=== PATIENT | female | born 1930 | race Caucasian/White ===

== ENCOUNTER 2018-01-31 01:58 | Inpatient (IN) | payer MEDICARE, OTHER ==
[2018-01-31] MEDS ORDERED: Diltiazem HCl 125 MG, Admixture Fee 1 EACH in Sodium Chloride 0.9% 100 ML IVPB SCH (02:30)
[2018-01-31 03:11] LABS: #Eosinphils 0.3 thou/uL (0.0-0.7); #Lymphocytes 1.3 thou/uL (1.20-3.40); #Neutrophils 6.5 thou/uL (1.40-6.50); %Basophils 0.3 % (0.0-1.0); %Eosinophils 3.1 % (0.0-10.0); %Monocytes 10.7 % (0.0-10.0); %Neutrophils 71.8 % (42.0-75.0); Mean Corpuscular HGB CONC 32.2 g/dL (32.0-36.0); Mean Corpuscular Hemoglobin 28.2 pg (27.0-31.0); Mean Corpuscular Volume 87.6 fL (78.0-98.0); Platelet Count 176 thou/uL (130-400); RBC Distribution Width 14.7 % (11.5-14.5); Red Blood Cell (RBC) Count 4.62 mill/uL (4.20-5.40)
[2018-01-31 03:16] LABS: Bilirubin Negative (Negative); Blood, Urine Trace (Negative); Clarity CLEAR (Clear); Glucose, Urine (Dipstick) Negative (Negative); Leukocyte Negative (Negative); Nitrite Negative (Negative); Protein, Urine (Dipstick) 30 mg/dL (Neg-Trace); Specific Gravity, Urine 1.027 (1.002-1.036); Urobilinogen 0.2 mg/dL (0.2-1.0)
[2018-01-31 03:18] LABS: Bacteria/HPF None Seen HPF (None Seen); Hyaline Casts/LPF 4-6 HYALINE CAST LPF (0-3 Hyaline); Pathc Cast-AUWi Flag 1.01 (0-2.49); WBC/HPF 0-3 HPF (0-3)
[2018-01-31 03:21] LABS: Oval Fat Bodies/HPF None Seen HPF (None Seen); Renal Epithelial 0-3 HPF (0-3); Sperm/HPF None Seen HPF (None Seen); Trichomonas/HPF None Seen HPF (None Seen); Yeast-All Forms None Seen HPF (None Seen)
[2018-01-31 03:31] LABS: ALT (SGPT) 13 U/L (8-55); AST (SGOT) 17 U/L (5-34); Albumin 3.8 g/dL (3.4-4.8); Alkaline Phosphatase 50 U/L (40-150); Anion Gap 15 mmol/L (10-20); BUN (Urea Nitrogen) 21 mg/dL (9.8-20.1); Bilirubin, Total 0.8 mg/dL (0.2-1.2); Calc. Creatinine Clearance 0 mL/min (70-130); Calcium 8.9 mg/dL (7.8-10.44); Carbon Dioxide 24 mmol/L (23-31); Chloride 102 mmol/L (98-107); Estimated GFR-MDRD 54; Globulin 3.1 g/dL (2.4-3.5); Glucose 138 mg/dL (83-110); Lipase 37 U/L (8-78); Magnesium 1.9 mg/dL (1.6-2.6); Phosphorus 2.6 mg/dL (2.3-4.7); Potassium 3.8 mmol/L (3.5-5.1); Protein, Total 6.9 g/dL (6.0-8.3); Sodium 137 mmol/L (136-145)
[2018-01-31 03:34] LABS: CKMB 3.2 ng/mL (0-6.6); Troponin I 0.026 ng/mL (< 0.028)
[2018-01-31 06:25] LABS: Troponin I 0.164 ng/mL (< 0.028)
--- NOTE | 2018-01-31 09:57 | RAD ---
PORTABLE CHEST: HISTORY: Shortness of breath and chest pain. FINDINGS: Lungs show no confluent infiltrate. The heart is mildly enlarged. Interstitial markings are mildly prominent. Vascular markings upper normal. No significant effusion. IMPRESSION: Mild cardiomegaly. No evidence of acute infiltrate. POS: [facility]
[2018-01-31 10:30] LABS: Troponin I 0.312 ng/mL (< 0.028)
[2018-01-31 15:01] VITALS: BMI 31.1
[2018-01-31] MEDS ORDERED: Ondansetron HCl/PF 4 MG/2 ML Vial IVP PRN (15:34)
[2018-01-31] MEDS ORDERED: Acetaminophen 325 MG TAB PO PRN (15:34)
[2018-01-31] MEDS ORDERED: Ondansetron ODT 4 MG TAB PO PRN (15:34)
[2018-01-31] MEDS ORDERED: HYDROcodone/Acetaminophen 5/325 mg Tablet PO PRN ×2 (15:34)
[2018-01-31] MEDS ORDERED: Acetaminophen 650 MG Suppository PR PRN ×2 (15:34→18:09)
[2018-01-31] MEDS ORDERED: Famotidine 20 MG TAB PO SCH (16:00)
[2018-01-31 19:50] LABS: CKMB 4.2 ng/mL (0-6.6); Troponin I 0.221 ng/mL (< 0.028)
[2018-01-31] MEDS: Atorvastatin Calcium 40 MG TAB PO SCH (20:36)
[2018-02-01 00:19] LABS: CKMB 3.5 ng/mL (0-6.6); Troponin I 0.215 ng/mL (< 0.028)
[2018-02-01] MEDS: Aspirin 81 mg Enteric Coated Tablet PO SCH (09:02)
[2018-02-01] MEDS: Multivitamin W/ Minerals 1 TAB PO SCH (09:03)
[2018-02-01] MEDS: Famotidine 20 MG TAB PO SCH ×2 (09:03→20:37)
[2018-02-01] MEDS: Calcium Carbonate + Vit D 1 TAB PO SCH (09:03)
[2018-02-01] MEDS: Polyethylene Glycol OPTH DROP 15 ML BOT EA EYE SCH (09:10)
--- NOTE | 2018-02-01 12:27 | PDOC.PN ---
- Subjective Encounter Start Date: 02/01/18 Encounter Start Time: 12:20 Subjective: f/u for A-fib RVR converting to SR rapidly. Remains in SR on po Cardizem -: and Metoprolol. No new complaints, CP, SOB. - Objective Resuscitation Status: Resuscitation Status FULL:Full Resuscitation Vital Signs & Weight: Vital Signs (12 hours) Temp Pulse Resp BP Pulse Ox 02/01/18 11:37 98.1 F 72 15 158/70 H 97 02/01/18 07:15 98.2 F 71 16 156/88 H 94 L 02/01/18 03:19 98.1 F 62 18 185/73 H 93 L Weight Weight 168 lb I&O: 01/31/18 02/01/18 02/02/18 06:59 06:59 06:59 Intake Total 770 Output Total 985 Balance -215 Result Diagrams: 01/31/18 02:49 01/31/18 02:49 Additional Labs: Laboratory Tests 01/31/18 01/31/18 01/31/18 02:49 02:49 05:49 Troponin I 0.026 0.164 H TSH 3rd Generation 1.5855 01/31/18 01/31/18 09:03 19:02 Troponin I 0.312 H* 0.221 H TSH 3rd Generation EKG Reviewed by me: Yes (Tele - SR) Phys Exam - Physical Examination Constitutional: NAD HEENT: PERRLA, sclera anicteric, oral pharynx no lesions Neck: no nodes, no JVD, supple, full ROM Respiratory: no wheezing, no rales, no rhonchi, clear to auscultation bilateral S1, S2 Cardiovascular: RRR, no significant murmur, no rub, gallop Gastrointestinal: soft, non-tender, no distention, positive bowel sounds Musculoskeletal: no edema, pulses present Neurological: normal sensation, moves all 4 limbs alert, talks rapidly Skin: normal turgor, cap refill <2 seconds Dx/Plan (1) Atrial fibrillation with RVR Code(s): I48.91 - UNSPECIFIED ATRIAL FIBRILLATION Status: Acute Comment: Converted to SR, continue Cardizem 180mg daily, continue Metoprolol 100mg po daily, 2D echo pending, consult Cardiology, CHADS-Vas2 - 4, hold anticoagulation pending recommendations from Cardiology (2) HTN (hypertension) Code(s): I10 - ESSENTIAL (PRIMARY) HYPERTENSION Status: Chronic Qualifiers: Hypertension type: essential hypertension Qualified Code(s): I10 - Essential (primary) hypertension Comment: Continue home BP regimen, added Cardizem, serial monitoring (3) HLD (hyperlipidemia) Code(s): E78.5 - HYPERLIPIDEMIA, UNSPECIFIED Status: Chronic Comment: Check FLP in am (4) Demand ischemia of myocardium Code(s): I24.8 - OTHER FORMS OF ACUTE ISCHEMIC HEART DISEASE Status: Acute Comment: Likely due to A-fib RVR, 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
[2018-02-01] MEDS: Acetaminophen 325 MG TAB PO PRN (13:08)
--- NOTE | 2018-02-01 15:53 | CON ---
DATE OF CONSULTATION: 02/01/2018 REASON FOR CONSULTATION: Atrial fibrillation. HISTORY OF PRESENT ILLNESS: Ms. Craven is a very pleasant 87-year-old woman, who recently presented w ith atrial fibrillation. The history is very difficult. She appears to be very confused. I called and spoke to her son, Jimmy, who states this was felt to be a new finding. He states she was on a la dder in the pantry and fell. He states she hit her head. He said she was seen and evaluated while i n the emergency room and was discharged. She has been on pain medication. This has been intermitten t. He states since that time she has been very confused. She has been very lucid prior to this fall . No previous history of underlying atrial fibrillation. No chest pain or pressure or other associa juventino symptoms present. PAST MEDICAL HISTORY: Hyperlipidemia. PAST SURGICAL HISTORY: Appendectomy. ALLERGIES: None. SOCIAL HISTORY: No current tobacco or alcohol use. HOME MEDICATIONS: Include Systane, multivitamin, calcium, aspirin, Toprol, pantoprazole, tramadol, a nd Lipitor. REVIEW OF SYSTEMS: Difficult to obtain. PHYSICAL EXAMINATION: VITAL SIGNS: Blood pressure 158/70, pulse 72, temperature 98.91. GENERAL: Patient is a pleasant female, who is in no acute distress. The patient appears her stated age. VITAL SIGNS: NEUROLOGIC: The patient is alert and oriented times 3 with no focal neurologic deficits. HEENT: Sclerae without icterus. Mouth has moist mucous membranes with normal pallor. NECK: No JVD. Carotid upstroke brisk. No bruits bilaterally. LUNGS: Clear to auscultation with unlabored respirations. BACK: No scoliosis or kyphosis. CARDIAC: Regular rate and rhythm with normal S1 and S2. No S3 or S4 noted. No significant rubs, mu rmurs, thrills, or gallops noted throughout the precordium. PMI is not displaced. There is no franco ternal heave. ABDOMEN: Soft, nontender, nondistended. No peritoneal signs present. No hepatosplenomegaly. No ab normal striae. EXTREMITIES: 2+ femoral and 2+ dorsalis pedis pulses. No cyanosis, clubbing, or edema. SKIN: No gross abnormalities. LABORATORY AND X-RAY FINDINGS: Initial EKG shows atrial fibrillation with rapid ventricular response , now sinus rhythm. IMPRESSION: 1. Confusion. 2. Paroxysmal atrial fibrillation. RECOMMENDATIONS: I spoke with Jimmy about the risks of anticoagulation therapy. Given the risks and benefits, we have decided to proceed with anticoagulation treatment. She has had 1 fall, but otherw ise has been fairly steady. Her blood pressure was very elevated earlier today and may also represen t hypertensive encephalopathy as far as the etiology to her confusion. This may also represent an at ypical stroke. I have discussed the case with Dr. Carlos Alberto Falk. We will need an MRI and likely Neurol ogy consult.
[2018-02-01] MEDS: Atorvastatin Calcium 40 MG TAB PO SCH (20:37)
[2018-02-02 06:28] LABS: Cardiac Risk 2.8 (Less than 4.5)
--- NOTE | 2018-02-02 09:11 | PDOC.PN ---
- Subjective Encounter Start Date: 02/02/18 Encounter Start Time: 09:07 Ms. Craven was seen today in follow-up of confusion and AFIB. She is complaining of feeling constipated, but otherwise ok. When you first talk with her she seems oriented, but the more she talks, and answers questions she becomes agitated, and the conversation goes off course. She begins to repeat the same ideas over and over ( ie, a medication that Dr. Seth put her on), and begins to forget the details of previous events, for example which day she fell last week. she admits she has short term memory problems. Her daughter- in law is at bedside, and notes that the confusion is worse. - Objective Resuscitation Status: Resuscitation Status FULL:Full Resuscitation MAR Reviewed: Yes Vital Signs & Weight: Vital Signs (12 hours) Temp Pulse Resp BP Pulse Ox 02/02/18 04:00 97.8 F 68 25 H 184/82 H 92 L 02/01/18 23:59 93 19 93 L Weight Weight 167 lb I&O: 02/01/18 02/02/18 02/03/18 06:59 06:59 06:59 Intake Total 770 1140 Output Total 985 500 Balance -215 640 Result Diagrams: 01/31/18 02:49 01/31/18 02:49 Phys Exam - Physical Examination HEENT: PERRLA Respiratory: no wheezing, no rales, no rhonchi, clear to auscultation bilateral Cardiovascular: RRR, no significant murmur, no rub Gastrointestinal: soft, non-tender, no distention, positive bowel sounds Musculoskeletal: no edema Neurological: non-focal, moves all 4 limbs muscle strength is intact, Dx/Plan (1) Confusion Code(s): R41.0 - DISORIENTATION, UNSPECIFIED Status: Acute (2) Atrial fibrillation with RVR Code(s): I48.91 - UNSPECIFIED ATRIAL FIBRILLATION Status: Acute Comment: Converted to SR, continue Cardizem 180mg daily, continue Metoprolol 100mg po daily, 2D echo pending, consult Cardiology, CHADS-Vas2 - 4, hold anticoagulation pending recommendations from Cardiology (3) HTN (hypertension) Code(s): I10 - ESSENTIAL (PRIMARY) HYPERTENSION Status: Chronic Qualifiers: Hypertension type: essential hypertension Qualified Code(s): I10 - Essential (primary) hypertension Comment: Continue home BP regimen, added Cardizem, serial monitoring - Plan * AFIB- her rate is controlled. Continue Metoprolol and Cardizem * She has been cleared to start anticogulation- will check an MRI first, and then consider starting Lovenox, and then transition to an oral anticoagulant * HTN - blood pressure is elevated- she has multiple allergies- will give a trial of Lisinopril * Confusion- ? Early dementia which is worsening, vs. ? CVA- will check an MRI, and consult Neurology.
[2018-02-02] MEDS: Aspirin 81 mg Enteric Coated Tablet PO SCH (09:42)
[2018-02-02] MEDS: Polyethylene Glycol OPTH DROP 15 ML BOT EA EYE SCH (09:43)
[2018-02-02] MEDS: Multivitamin W/ Minerals 1 TAB PO SCH (09:43)
[2018-02-02] MEDS: Calcium Carbonate + Vit D 1 TAB PO SCH (09:43)
[2018-02-02] MEDS: Famotidine 20 MG TAB PO SCH ×3 (09:43→20:33)
[2018-02-02] MEDS: hydrALAZINE 20 MG/ML VIAL SLOW IVP PRN (12:10)
--- NOTE | 2018-02-02 13:31 | MRI ---
MRI BRAIN NONCONTRAST: INDICATIONS: Progressive confusion. History of atrial fibrillation and cerebrovascular accident. FINDINGS: There is moderate global atrophy with compensatory dilatation of the ventricular system. There is no acute territorial infarction, mass effect, or midline shift. Multifocal small susceptibility foci a re present intracranially, superimposed upon moderate chronic microvascular ischemic disease. The ce ntral skull base flow voids are grossly patent. [place] intraocular lenses are absent. There is punc martinez signal alteration of each mastoid segment of the temporal bones, indicating minimal mastoid flui d. IMPRESSION: 1. Moderate chronic ischemic disease and global atrophy. 2. Multifocal punctate susceptibility, which may represent sequela from amyloid angiopathy. 3. No acute territorial infarction or mass effect. POS: [facility]
[2018-02-02] MEDS: cloNIDine 0.1 MG TAB PO PRN ×2 (14:11→20:33)
[2018-02-02] MEDS ORDERED: Haloperidol 1 MG TAB PO SCH (15:45)
--- NOTE | 2018-02-02 17:55 | PDOC.CTH ---
Cardiology Progress Note - Subjective Patient without compalint. Confused. - ROS not able to obtain ROS - Objective Vital Signs Temp Pulse Resp BP BP Pulse Ox 02/02/18 16:40 98.1 F 64 18 137/61 97 02/02/18 16:20 87 L 02/02/18 14:11 180/77 H 02/02/18 12:26 97.9 F 72 18 198/80 H 95 02/02/18 12:10 68 02/02/18 09:20 98.4 F 68 20 198/87 H 93 L 02/02/18 09:05 98.4 F 68 20 93 L Weight 167 lb 02/01/18 02/02/18 02/03/18 06:59 06:59 06:59 Intake Total 770 1140 Output Total 985 500 Balance -215 640 - Physical Examination General/Neuro: other: (alert and awake) Lungs: CTA Heart: RRR Extremities: other: (no edema) - Telemetry Telemetry Rhythm: SR; AF/Flutter - Labs Result Diagrams: 01/31/18 02:49 01/31/18 02:49 Troponin/CKMB CK-MB (CK-2) 3.5 ng/mL (0-6.6) 01/31/18 23:45 Troponin I 0.215 ng/mL (< 0.028) H 01/31/18 23:45 - Assessment/Plan 1. Acute MS changes 2. Paroxysmal AFib 3. AFlutter Reviewed MRI and discussed with Dr. Leyva who previously discussed case with son who agreed to OAC. Will add Multaq for rhythm suppression. Monitor rate in combination with cardizem. Add lovenox and probably change to Eliquis. Continue tele monitoring.
[2018-02-02] MEDS ORDERED: Dronedarone HCl 400 MG TAB PO SCH (18:30)
[2018-02-02] MEDS: Lisinopril 5 MG TAB PO SCH (20:33)
[2018-02-02] MEDS: Atorvastatin Calcium 40 MG TAB PO SCH (20:33)
[2018-02-02] MEDS: Enoxaparin Sodium 60 MG/0.6 ML SYRINGE SC SCH (20:34)
--- NOTE | 2018-02-03 00:09 | CON ---
DATE OF CONSULTATION: 02/02/2018 REFERRING PROVIDER: Dr. Major Finley. REASON FOR CONSULTATION: Altered mental status. HISTORY OF PRESENT ILLNESS: Ms. Craven is a pleasant 87-year-old female, who has been consu lted for evaluation of altered mental status. History is obtained primarily from patientKaran Jallohl y, the patient reports that she had a fall on 01/27/2018 from the ladder. After the fall, she has be en having increasing episodes of confusion. She has increasing forgetfulness. She is also having in crease in agitation and changes in her mood and behavior. Her son and [id number] were present a t bedside, who report that prior to her fall, she was normal, and since her fall, she has been having increasing confusion. She had presented during this visit with new onset atrial fibrillation with R VR. PAST MEDICAL HISTORY: Significant for hyperlipidemia and new onset atrial fibrillation with RVR. PAST SURGICAL HISTORY: Significant for appendectomy. CURRENT MEDICATIONS: Please review MAR. ALLERGIES: No known drug allergies. FAMILY HISTORY: Noncontributory. SOCIAL HISTORY: She does not smoke cigarettes, drink alcohol, or use illicit drugs. REVIEW OF SYSTEMS: As mentioned above in HPI, otherwise negative. PHYSICAL EXAMINATION: VITAL SIGNS: Blood pressure of 198/80, pulse of 72, temperature of 97.9, respirations of 18, O2 sats of 95% on room air. GENERAL: A well-developed, well-nourished female, in no apparent distress. RESPIRATORY: Clear to auscultation bilaterally. CARDIOVASCULAR: Regular rate and rhythm. NEUROLOGICAL EXAM: Mental status: The patient is awake, alert, oriented x2. Speech and language: Fluent speech. Cranial nerves: Pupils are 3 mm and reactive. Visual mccallum are intact. External m uscles are intact. No nystagmus is noted. Face is symmetric. Tongue and uvula are midline. Motor exam showed normal tone and bulk with a 5/5 strength in both upper and lower extremities. Sensory: Sensation is intact and symmetric. Deep tendon reflexes 1+ reflexes in both upper and lower extremit ies. Babinski: Plantar responses flexor bilaterally. Coordination intact to [id number] and finger tapping bilaterally. LABORATORY DATA: Reviewed, which included CBC, CMP, troponin, and urinalysis, which is significant f or troponin of 0.221, otherwise unremarkable. IMAGING STUDIES: MRI brain without contrast was reviewed, which showed no acute intracranial abnorma lity. IMPRESSION: 1. Altered mental status, likely encephalopathy versus postconcussion syndrome. 2. Atrial fibrillation. 3. Malignant hypertension. Ms. Craven is a pleasant 87-year-old female, who had a fall on 01/07/2018, after which she h as developed confusion. She may have postconcussion syndrome. There may be also a component of pearl ntia, although it is difficult to say at this time. I have reviewed her MRI brain, which did not marvin w any acute intracranial abnormality. Her symptoms are likely either related to post-concussion or e ncephalopathy. At this time, I would recommend continuing current medical management. No further ne urological workup needed from my standpoint. Thank you for consultation.
[2018-02-03] MEDS: Polyethylene Glycol OPTH DROP 15 ML BOT EA EYE SCH (08:27)
[2018-02-03] MEDS: Dronedarone HCl 400 MG TAB PO SCH ×2 (08:28→16:13)
[2018-02-03] MEDS: Enoxaparin Sodium 60 MG/0.6 ML SYRINGE SC SCH ×2 (08:28→20:49)
[2018-02-03] MEDS: Lisinopril 5 MG TAB PO SCH ×2 (08:28→20:49)
[2018-02-03] MEDS: Aspirin 81 mg Enteric Coated Tablet PO SCH (08:29)
[2018-02-03] MEDS: Calcium Carbonate + Vit D 1 TAB PO SCH (08:29)
[2018-02-03] MEDS: Multivitamin W/ Minerals 1 TAB PO SCH (08:29)
[2018-02-03] MEDS: Famotidine 20 MG TAB PO SCH ×2 (08:29→20:49)
--- NOTE | 2018-02-03 08:49 | PDOC.CTH ---
Cardiology Progress Note - Subjective Reviewed tele. Sinus abisai noted overnight. Currently SR 60s. No complaints. Still with some confusion staying on track in conversation. - Objective Vital Signs Temp Pulse Resp BP BP BP Pulse Ox 02/03/18 08:28 69 145/92 H 02/03/18 08:23 98.5 F 69 18 145/92 H 96 02/03/18 04:00 98.3 F 54 L 18 133/58 L 98 02/02/18 23:45 164/70 H Weight 161 lb 8 oz 02/02/18 02/03/18 02/04/18 06:59 06:59 06:59 Intake Total 1140 924 Output Total 500 800 Balance 640 124 - Physical Examination Lungs: CTA Heart: RRR Abdomen: NT/ND - Telemetry Telemetry Rhythm: SR 60s - Labs Result Diagrams: 01/31/18 02:49 01/31/18 02:49 Troponin/CKMB CK-MB (CK-2) 3.5 ng/mL (0-6.6) 01/31/18 23:45 Troponin I 0.215 ng/mL (< 0.028) H 01/31/18 23:45 - Assessment/Plan 1. Bradycardia 2. MS changes - ? encephalopathy 3. Paroxysmal AF 4. HTN Stop cardizem. Decrease Toprol to 50mg daily. Continue Multaq.
[2018-02-03] MEDS ORDERED: Lisinopril 5 MG TAB PO SCH (09:00)
--- NOTE | 2018-02-03 09:41 | PDOC.PN ---
- Subjective Encounter Start Date: 02/03/18 Encounter Start Time: 09:39 Ms. Craven was seen today in follow-up of confusion, and AFIB with RVR. She still seems a bit anxious, and has a little pressured speech. She denies having any chest pain or shortness of breath. - Objective Resuscitation Status: Resuscitation Status FULL:Full Resuscitation MAR Reviewed: Yes Vital Signs & Weight: Vital Signs (12 hours) Temp Pulse Resp BP BP BP Pulse Ox 02/03/18 08:28 69 145/92 H 02/03/18 08:23 98.5 F 69 18 145/92 H 96 02/03/18 04:00 98.3 F 54 L 18 133/58 L 98 02/02/18 23:45 164/70 H Weight Weight 161 lb 8 oz I&O: 02/02/18 02/03/18 02/04/18 06:59 06:59 06:59 Intake Total 1140 924 360 Output Total 500 800 Balance 640 124 360 Result Diagrams: 01/31/18 02:49 01/31/18 02:49 Additional Labs: Accuchecks 02/02/18 15:06 POC Glucose 140 H Phys Exam - Physical Examination HEENT: PERRLA Respiratory: no wheezing, no rales, no rhonchi, clear to auscultation bilateral Cardiovascular: RRR, no significant murmur, no rub Gastrointestinal: soft, non-tender, positive bowel sounds Musculoskeletal: no edema Dx/Plan (1) Confusion Code(s): R41.0 - DISORIENTATION, UNSPECIFIED Status: Acute (2) Atrial fibrillation with RVR Code(s): I48.91 - UNSPECIFIED ATRIAL FIBRILLATION Status: Acute Comment: Converted to SR, continue Cardizem 180mg daily, continue Metoprolol 100mg po daily, 2D echo pending, consult Cardiology, CHADS-Vas2 - 4, hold anticoagulation pending recommendations from Cardiology (3) HTN (hypertension) Code(s): I10 - ESSENTIAL (PRIMARY) HYPERTENSION Status: Chronic Qualifiers: Hypertension type: essential hypertension Qualified Code(s): I10 - Essential (primary) hypertension Comment: Continue home BP regimen, added Cardizem, serial monitoring - Plan * Confusion- Neurology Evaluation appreciated- She likely has Post Concussion syndrome, or Encephalopathy * Will continue to monitor- no further work-up needed at this time * AFIB with RVR- her heart rate is a bit slow. Changes noted by Cardiology- Cardizem has been discontinued, and Metoprolol has been decreased. * She has been started on anticoagulation * HTN- her blood pressure has been elevated, Lisinopril was increased, and will continue the PRN medications as well
[2018-02-03] MEDS: Acetaminophen 325 MG TAB PO PRN (10:25)
[2018-02-03] MEDS: Acetaminophen 500 MG TAB PO PRN ×2 (16:13→22:06)
[2018-02-03] MEDS: Atorvastatin Calcium 40 MG TAB PO SCH (20:49)
[2018-02-03] MEDS: Docusate 100 MG CAP PO SCH (20:49)
[2018-02-03] MEDS ORDERED: Acetaminophen 650 MG Suppository PR PRN (22:07)
[2018-02-04] MEDS ORDERED: Sodium Chloride 0.9% 10 ML ONE ×3 (04:46→19:47)
[2018-02-04] MEDS: hydrALAZINE 20 MG/ML VIAL SLOW IVP PRN (04:49)
[2018-02-04] MEDS: Acetaminophen 500 MG TAB PO PRN ×2 (05:55→20:42)
[2018-02-04] MEDS ORDERED: Lorazepam 2 MG/ML VIAL SLOW IVP SCH (06:00)
[2018-02-04 06:03] LABS: Hemoglobin 13.4 g/dL (12.0-16.0); Platelet Count 205 thou/uL (130-400)
--- NOTE | 2018-02-04 08:43 | PDOC.PN ---
- Subjective Encounter Start Date: 02/04/18 Encounter Start Time: 08:42 Ms. Craven was seen today in follow-up of AFIB with RVR. She denies chest pain or shortness of breath. She does complain of soreness in the sacral region where she fell. - Objective Resuscitation Status: Resuscitation Status FULL:Full Resuscitation MAR Reviewed: Yes Vital Signs & Weight: Vital Signs (12 hours) Temp Pulse Resp BP BP Pulse Ox 02/04/18 05:30 70 20 174/74 H 02/04/18 04:00 98.8 F 65 20 182/79 H 97 02/04/18 03:44 98.5 F 64 20 183/77 H 93 L 02/03/18 20:50 99.6 F 61 20 93 L 02/03/18 20:44 99.6 F 61 20 153/69 H 93 L Weight Weight 161 lb 14.4 oz I&O: 02/03/18 02/04/18 02/05/18 06:59 06:59 06:59 Intake Total 924 1971 Output Total 800 700 Balance 124 1271 Result Diagrams: 02/04/18 05:41 02/04/18 05:41 Phys Exam - Physical Examination HEENT: PERRLA, sclera anicteric Respiratory: no wheezing, no rales, no rhonchi, clear to auscultation bilateral Cardiovascular: RRR, no significant murmur, no rub Gastrointestinal: soft, non-tender, positive bowel sounds Musculoskeletal: edema present trace pedal edema Dx/Plan (1) Confusion Code(s): R41.0 - DISORIENTATION, UNSPECIFIED Status: Acute (2) Atrial fibrillation with RVR Code(s): I48.91 - UNSPECIFIED ATRIAL FIBRILLATION Status: Acute Comment: Converted to SR, continue Cardizem 180mg daily, continue Metoprolol 100mg po daily, 2D echo pending, consult Cardiology, CHADS-Vas2 - 4, hold anticoagulation pending recommendations from Cardiology (3) HTN (hypertension) Code(s): I10 - ESSENTIAL (PRIMARY) HYPERTENSION Status: Chronic Qualifiers: Hypertension type: essential hypertension Qualified Code(s): I10 - Essential (primary) hypertension Comment: Continue home BP regimen, added Cardizem, serial monitoring - Plan * AFIB- her heart rate is stable in the 50's and 60's. * HTN- blood pressure is slightly elevated- but she seems a little agitated. She told me she thought she was " near and that her soon would be all alone". I was able to calm her some, but she still was a little nervous, and flighty. * Confusion- likely a post concussion syndrome
[2018-02-04] MEDS: Dronedarone HCl 400 MG TAB PO SCH ×2 (09:09→16:40)
[2018-02-04] MEDS: Aspirin 81 mg Enteric Coated Tablet PO SCH (09:09)
[2018-02-04] MEDS: Enoxaparin Sodium 60 MG/0.6 ML SYRINGE SC SCH ×2 (09:10→20:43)
[2018-02-04] MEDS: Calcium Carbonate + Vit D 1 TAB PO SCH (09:10)
[2018-02-04] MEDS: Docusate 100 MG CAP PO SCH ×2 (09:10→20:43)
[2018-02-04] MEDS: Famotidine 20 MG TAB PO SCH (09:10)
[2018-02-04] MEDS: Lisinopril 5 MG TAB PO SCH ×2 (09:11→20:42)
[2018-02-04] MEDS: Polyethylene Glycol OPTH DROP 15 ML BOT EA EYE SCH (09:12)
[2018-02-04] MEDS: Multivitamin W/ Minerals 1 TAB PO SCH (09:12)
--- NOTE | 2018-02-04 10:17 | PDOC.CTH ---
Cardiology Progress Note - Subjective Still confused - Objective Vital Signs Temp Pulse Resp BP BP Pulse Ox 02/04/18 08:54 98.3 F 77 18 178/74 H 96 02/04/18 05:30 70 20 174/74 H 02/04/18 04:00 98.8 F 65 20 182/79 H 97 02/04/18 03:44 98.5 F 64 20 183/77 H 93 L Weight 161 lb 14.4 oz 02/03/18 02/04/18 02/05/18 06:59 06:59 06:59 Intake Total 924 1971 Output Total 800 700 Balance 124 1271 - Physical Examination General/Neuro: NAD Neck: no JVD present Lungs: CTA, unlabored respirations Heart: PMI normal, RRR Abdomen: NT/ND, soft Extremities: + edema B - Labs Result Diagrams: 02/04/18 05:41 02/04/18 05:41 Troponin/CKMB CK-MB (CK-2) 3.5 ng/mL (0-6.6) 01/31/18 23:45 Troponin I 0.215 ng/mL (< 0.028) H 01/31/18 23:45 - Assessment/Plan Parox afib encephalopathy dementia No CV changes noted. Pt on lovenox Recommend changing to eliquis 5mg BID and continuing with multaq for PAF Recommend fu with Radha in 1 week after dc Please re-consult if questions arise
--- NOTE | 2018-02-04 13:36 | EKG ---
Test Reason : Blood Pressure : / mmHG Vent. Rate : 142 BPM Atrial Rate : 131 BPM P-R Int : 000 ms QRS Dur : 084 ms QT Int : 326 ms P-R-T Axes : 000 -80 052 degrees QTc Int : 501 ms Atrial fibrillation with rapid ventricular response with premature ventricular or aberrantly conducte d complexes Left anterior fascicular block Nonspecific ST abnormality , probably digitalis effect No STEMI Abnormal ECG Confirmed by BIANCA Fuentes, JAYJAY ([id number]), publication editor REBECCA GERARD ([id number]) on 02/04/2018 1:36:25 PM Referred By: Confirmed By:JAYJAY VALENZUELA M.D.
--- NOTE | 2018-02-04 13:39 | EKG ---
Test Reason : Blood Pressure : / mmHG Vent. Rate : 062 BPM Atrial Rate : 062 BPM P-R Int : 142 ms QRS Dur : 084 ms QT Int : 440 ms P-R-T Axes : 050 -65 051 degrees QTc Int : 446 ms Sinus rhythm with Premature supraventricular complexes Left anterior fascicular block No STEMI Abnormal ECG Confirmed by JAYJAY VALENZUELA M.D. ([id number]), news copy editor REBECCA GERARD ([id number]) on 02/04/2018 1:39:18 PM Referred By: Confirmed By:JAYJAY VALENZUELA M.D.
[2018-02-04] MEDS: cloNIDine 0.1 MG TAB PO PRN (16:40)
[2018-02-04] MEDS: Atorvastatin Calcium 40 MG TAB PO SCH (20:43)
[2018-02-04] MEDS ORDERED: Melatonin 3 MG TAB PO PRN (21:24)
[2018-02-04] MEDS ORDERED: ALPRAZolam 0.25 MG TAB PO PRN (21:24)
[2018-02-04] MEDS ORDERED: Bisacodyl 10 MG SUPP PR SCH (21:30)
[2018-02-05] MEDS ORDERED: Sodium Chloride 0.9% 10 ML ONE ×2 (00:22→05:29)
[2018-02-05] MEDS: hydrALAZINE 20 MG/ML VIAL SLOW IVP PRN ×2 (00:29→05:32)
[2018-02-05] MEDS: Acetaminophen 500 MG TAB PO PRN (05:33)
--- NOTE | 2018-02-05 07:47 | PDOC.PN ---
- Subjective Encounter Start Date: 02/05/18 Encounter Start Time: 07:45 Ms. Craven was seen today in follow-up. She is complaining of feeling anxious, and feels she would do better at home. - Objective Resuscitation Status: Resuscitation Status FULL:Full Resuscitation MAR Reviewed: Yes Vital Signs & Weight: Vital Signs (12 hours) Temp Pulse Resp BP BP Pulse Ox 02/05/18 06:33 76 20 140/64 02/05/18 05:25 73 20 200/84 H 02/05/18 03:50 98.2 F 71 20 150/66 H 93 L 02/05/18 01:30 57 L 16 107/53 L 02/05/18 00:28 184/62 H 02/05/18 00:15 65 16 182/77 H 95 02/04/18 20:43 98.3 F 68 20 92 L 02/04/18 20:31 98.3 F 68 20 170/64 H 92 L Weight Weight 163 lb I&O: 02/04/18 02/05/18 02/06/18 06:59 06:59 06:59 Intake Total 1971 1610 Output Total 700 800 Balance 1271 810 Result Diagrams: 02/04/18 05:41 02/04/18 05:41 Phys Exam - Physical Examination HEENT: PERRLA Respiratory: no wheezing, no rales, no rhonchi, clear to auscultation bilateral Cardiovascular: RRR, no significant murmur, no rub Gastrointestinal: soft, non-tender, no distention, positive bowel sounds Musculoskeletal: no edema Dx/Plan (1) Confusion Code(s): R41.0 - DISORIENTATION, UNSPECIFIED Status: Acute (2) Atrial fibrillation with RVR Code(s): I48.91 - UNSPECIFIED ATRIAL FIBRILLATION Status: Acute Comment: Converted to SR, continue Cardizem 180mg daily, continue Metoprolol 100mg po daily, 2D echo pending, consult Cardiology, CHADS-Vas2 - 4, hold anticoagulation pending recommendations from Cardiology (3) HTN (hypertension) Code(s): I10 - ESSENTIAL (PRIMARY) HYPERTENSION Status: Chronic Comment: Continue home BP regimen, added Cardizem, serial monitoring - Plan * AFIB with RVR- her heart rate is stable * HTN- blood pressure is labile, but I suspect this is due in part to anxiety. Continue Lisinopril, and titrate as outpatient as needed * Stable for discharge home
--- NOTE | 2018-02-05 08:30 | DIS ---
DATE OF ADMISSION: 01/31/2018 DATE OF DISCHARGE: 02/05/2018 DISCHARGE DISPOSITION: Home. PRIMARY DISCHARGE DIAGNOSES: 1. Atrial fibrillation with rapid ventricular response. 2. Confusion or altered mental status, secondary to postconcussive syndrome. 3. Hyperlipidemia. 4. Hypertension. DISCHARGE MEDICATIONS: Include Toprol-XL 50 mg daily, which is decreased from 100. She was started on Multaq 400 mg twice a day, lisinopril 5 mg twice a day, Eliquis 5 mg twice a day. Continue tramad ol 50 mg 1 p.o. q.6 hours as needed, pantoprazole 40 mg daily, multivitamin once a day, calcium plus vitamin D 1260 daily, Avastin 1 vial every month, Lipitor 40 mg at bedtime, and aspirin 81 mg a day. PROCEDURES DONE DURING ADMISSION: The patient had an MRI of the brain, in which there was moderate c hronic ischemic disease as well as global atrophy, multifocal punctate susceptibility, which may repr esent sequelae from amyloid angiopathy. There was no mass or infarct. The patient also had an echoc ardiogram, in which the ejection fraction was estimated at 55%-60%. There was some E to A flow rever neno noted, suggestive of diastolic dysfunction. CODE STATUS: FULL CODE. ALLERGIES: AMLODIPINE, ATORVASTATIN, BACITRACIN, CIPROFLOXACIN, CLINDAMYCIN, LACTOSE, POLYMYXIN. HOSPITAL COURSE: Ms. Craven is a pleasant 87-year-old female, who was admitted after she was noted to be a bit altered from before. It is notable that she had fallen and hit her head a week prior. Thi s was evaluated in an outside ER. However, after that she became more confused, and when she came to the emergency room, she was found to be in atrial fibrillation with rapid ventricular response. She was admitted and started on IV Cardizem. Eventually transitioned to oral Cardizem and metoprolol. She was then transitioned to Multaq and metoprolol. Her case was discussed with the patient as well as the patient's son and the decision was made to start her on Eliquis. She had only had about 1 pre vious fall and prior to that she had been more or less functional. Also, the altered mental status w as evaluated by obtaining an MRI during her hospital stay here and also being evaluated by Neurology, and it was felt that the altered mental status was likely the result of a post-concussion syndrome a nd hopefully would improve as time progressed. Case management has been consulted for a home health evaluation to help her with chronic disease management and she will be following up with her primary care physician in 1-2 weeks.
[2018-02-05] MEDS ORDERED: Famotidine 20 MG TAB PO SCH (09:00)
[2018-02-05] MEDS: Calcium Carbonate + Vit D 1 TAB PO SCH (09:11)
[2018-02-05] MEDS: Multivitamin W/ Minerals 1 TAB PO SCH (09:11)
[2018-02-05] MEDS: Aspirin 81 mg Enteric Coated Tablet PO SCH (09:11)
[2018-02-05] MEDS: Docusate 100 MG CAP PO SCH (09:11)
[2018-02-05] MEDS: Dronedarone HCl 400 MG TAB PO SCH (09:11)
[2018-02-05] MEDS: Lisinopril 5 MG TAB PO SCH (09:11)
[2018-02-05] MEDS: Enoxaparin Sodium 60 MG/0.6 ML SYRINGE SC SCH (09:11)
[2018-02-05] MEDS: Polyethylene Glycol OPTH DROP 15 ML BOT EA EYE SCH (09:12)
[2018-02-05] MEDS: cloNIDine 0.1 MG TAB PO PRN (13:27)
[2018-02-05 13:29] VITALS: BP 185/74
[2018-02-05 14:16] VITALS: TEMP 98
== END 2018-02-05 16:23 | disposition home health service (06) | DRG 308 ==
LOC: ERS 01:58 → IMCU/EMU 05:23 → ERHOLD 05:39 → 2NO 13:33
PROVIDERS: ADMIT Internal Medicine Infectious Disease; ATTEND Internal Medicine Infectious Disease
DX: I48.0 Paroxysmal atrial fibrillation (principal); G93.40 Encephalopathy, unspecified; F07.81 Postconcussional syndrome; I48.92 Unspecified atrial flutter; E78.5 Hyperlipidemia, unspecified; I10 Essential (primary) hypertension; Z79.01 Long term (current) use of anticoagulants; Z79.82 Long term (current) use of aspirin; Z88.1 Allergy status to other antibiotic agents; Z88.8 Allergy status to other drugs, medicaments and biological substances; Y92.019 Unspecified place in single-family (private) house as the place of occurrence of the external cause; Z91.81 History of falling; W11.XXXA Fall on and from ladder, initial encounter; R00.1 Bradycardia, unspecified
CPT/HCPCS: 36415; 36416; 51701; 70551; 71045; 80053; 80061; 81003; 81015; 82553; 82565; 83690; 83735; 84100; 84443; 84484; 85014; 85018; 85025; 85049; 93005; 93306; 96365; 96366; 96376; A4216; A4353; G8978-GP-CJ; G8979-GP-CI; G8987-GO-CI; G8988-GO-CI; G8989-GO-CI; J0360; J1650; J2060; J7050; Q0162

== ENCOUNTER 2019-02-12 19:10 | Inpatient (IN) | payer MEDICARE ==
[2019-02-12 19:51] LABS: Bilirubin Negative (Negative); Blood, Urine Negative (Negative); Clarity Clear (Clear); Glucose, Urine (Dipstick) Normal (Negative); Leukocyte Negative Leu/uL (Negative); Nitrite Negative (Negative); Protein, Urine (Dipstick) Negative (Neg-Trace); Urobilinogen Normal mg/dL (Less than 2)
[2019-02-12] MEDS ORDERED: Acetaminophen 500 MG TAB ONE (19:51)
[2019-02-12] MEDS ORDERED: Ondansetron PF 4 MG/2 ML Vial ONE (19:51)
--- NOTE | 2019-02-12 19:57 | RAD ---
EXAM: Single view of the chest HISTORY: Hypertension COMPARISON: 01/31/2018 FINDINGS: Single view of the chest shows a normal sized cardiomediastinal silhouette. There is no brooke dence of consolidation, mass, or pleural effusion. Degenerative changes are seen in the spine. IMPRESSION: No evidence of acute cardiopulmonary disease
[2019-02-12 20:01] LABS: #Eosinphils 0.1 thou/uL (0.0-0.7); #Lymphocytes 1.4 thou/uL (1.20-3.40); #Monocytes 0.9 thou/uL (0.11-0.59); #Neutrophils 6.4 thou/uL (1.40-6.50); %Basophils 0.3 % (0.0-1.0); %Eosinophils 1.6 % (0.0-10.0); %Lymphocytes 15.4 % (21.0-51.0); %Monocytes 10.3 % (0.0-10.0); %Neutrophils 72.5 % (42.0-75.0); Hemoglobin 11.9 g/dL (12.0-16.0); Mean Corpuscular HGB CONC 32.7 g/dL (32.0-36.0); Mean Corpuscular Hemoglobin 28.5 pg (27.0-31.0); Mean Corpuscular Volume 87.4 fL (78.0-98.0); Mean Platelet Volume 8.4 fL (7.4-10.4); Platelet Count 269 thou/uL (130-400); RBC Distribution Width 14.3 % (11.5-14.5); Red Blood Cell (RBC) Count 4.18 mill/uL (4.20-5.40); White Blood Cell (WBC) Count 8.9 thou/uL (4.8-10.8)
--- NOTE | 2019-02-12 20:13 | CT ---
EXAM: CT brain without contrast HISTORY: Headache and hypertension COMPARISON: None TECHNIQUE: Multiple contiguous axial images were obtained and a CT of the brain without contrast. FINDINGS: There are scattered hypodensities in the subcortical and periventricular white matter consi stent with small vessel ischemic disease. There is no evidence of hydrocephalus, intracranial hemorrhage, or extra-axial fluid collection. The calvarium and overlying soft tissues are unremarkable. The visualized paranasal sinuses and masto id air cells are well aerated. IMPRESSION: No evidence of acute intracranial abnormality
[2019-02-12 20:23] LABS: ALT (SGPT) 40 U/L (8-55); AST (SGOT) 33 U/L (5-34); Albumin 3.8 g/dL (3.4-4.8); Alkaline Phosphatase 60 U/L (40-150); Anion Gap 14 mmol/L (10-20); BUN (Urea Nitrogen) 15 mg/dL (9.8-20.1); Bilirubin, Total 0.5 mg/dL (0.2-1.2); Calc. Creatinine Clearance 0 mL/min (70-130); Carbon Dioxide 24 mmol/L (23-31); Chloride 94 mmol/L (98-107); Estimated GFR-MDRD 46; Globulin 2.8 g/dL (2.4-3.5); Glucose 128 mg/dL (83-110); Potassium 4.2 mmol/L (3.5-5.1); Protein, Total 6.6 g/dL (6.0-8.3); Sodium 128 mmol/L (136-145)
[2019-02-12] MEDS ORDERED: Labetalol HCl 100 MG/20 ML VIAL ONE (20:31)
[2019-02-12 22:39] LABS: Troponin I Less than 0.010 ng/mL (< 0.028)
[2019-02-12] MEDS ORDERED: Lisinopril 10 MG TAB ONE (22:50)
[2019-02-12] MEDS ORDERED: hydrALAZINE 20 MG/ML VIAL ONE (22:50)
[2019-02-13] MEDS ORDERED: cloNIDine 0.1 MG TAB PO PRN ×2 (01:09→01:13)
[2019-02-13] MEDS ORDERED: Ondansetron ODT 4 MG TAB PO PRN (01:42)
[2019-02-13] MEDS ORDERED: Acetaminophen 650 MG Suppository PR PRN (01:42)
[2019-02-13] MEDS: Enalaprilat Dihydrate 1.25 MG in Dextrose 5% in Water 50 ML IVPB SCH ×2 (02:13→11:36)
[2019-02-13 02:18] LABS: #Eosinphils 0.1 thou/uL (0.0-0.7); #Lymphocytes 0.9 thou/uL (1.20-3.40); #Monocytes 0.7 thou/uL (0.11-0.59); #Neutrophils 5.5 thou/uL (1.40-6.50); %Basophils 0.6 % (0.0-1.0); %Eosinophils 1.8 % (0.0-10.0); %Lymphocytes 12.3 % (21.0-51.0); %Monocytes 9.6 % (0.0-10.0); %Neutrophils 75.7 % (42.0-75.0); Mean Corpuscular Hemoglobin 28.1 pg (27.0-31.0); Mean Corpuscular Volume 87.8 fL (78.0-98.0); Mean Platelet Volume 8.5 fL (7.4-10.4); Platelet Count 248 thou/uL (130-400); RBC Distribution Width 14.4 % (11.5-14.5); Red Blood Cell (RBC) Count 3.92 mill/uL (4.20-5.40); White Blood Cell (WBC) Count 7.3 thou/uL (4.8-10.8)
[2019-02-13] MEDS: Acetaminophen 325 MG TAB PO PRN (02:27)
[2019-02-13 02:42] LABS: Troponin I Less than 0.010 ng/mL (< 0.028)
[2019-02-13 02:49] LABS: Anion Gap 11 mmol/L (10-20); BUN (Urea Nitrogen) 14 mg/dL (9.8-20.1); Calc. Creatinine Clearance 0 mL/min (70-130); Calcium 8.9 mg/dL (7.8-10.44); Carbon Dioxide 28 mmol/L (23-31); Chloride 96 mmol/L (98-107); Estimated GFR-MDRD 48; Glucose 153 mg/dL (83-110); Potassium 3.9 mmol/L (3.5-5.1); Sodium 131 mmol/L (136-145)
--- NOTE | 2019-02-13 02:55 | HP ---
PRIMARY CARE DOCTOR: Out-of-town physician. CODE STATUS: Full code. TIME OF EVALUATION: Around 12:00 a.m. CHIEF COMPLAINT: High blood pressure. HISTORY OF PRESENT ILLNESS: This is an 88 years old female patient with past medical history hypertension that she reported is hard to control. She presented having high blood pressure associated with headache, shortness of breath. She reported that she has been taking her medication, but even with taking her medications, she is still having a very difficult to control high blood pressure. The symptoms are moderate. No clear triggers, no alleviating factors. Blood pressure medications had been restarted with caution, this patient has bradycardia and some medication might cause this side effect. We will consult Dr. Farr in the morning to help us with hypertension. Symptom had been present for the past few hours. REVIEW OF SYSTEMS: All other systems were reviewed and negative except for the findings mentioned above. Neurological: The patient did report some dizziness associated with high blood pressure. PAST MEDICAL HISTORY: Positive for macular degeneration, hypertension, high cholesterol. PAST SURGICAL HISTORY: Appendectomy. FAMILY HISTORY:Reviewed and non contributory for current presentation PSYCHIATRIC HISTORY: No previous inpatient psych admissions. SOCIAL HISTORY: No alcohol, no drug use. No smoking history. KNOWN ALLERGIES: No known drug allergies reported. MEDICATIONS: 1. Amiodarone. 2. Aspirin. 3. Atorvastatin. 4. Buspirone. 5. Clonidine. 6. Hydralazine. 7. Lisinopril. 8. Metoprolol. 9. Pantoprazole. 10. Xarelto. PHYSICAL EXAMINATION: VITAL SIGNS: On presentation, blood pressure 212/73 with heart rate of 55, respiratory rate was 18, temperature 98.3, pain was 0/10, oxygen saturation was 95% on room air. GENERAL APPEARANCE: The patient is alert, oriented, in no acute distress. HEENT: Eyes, normal conjunctivae. Moist oral mucosa. Anicteric. No JVD. RESPIRATORY: Bilateral air entry. No rales, no wheezes. Symmetric expansion. CARDIOVASCULAR: Normal rate. Regular rhythm. No murmurs. No gallop. No edema. ABDOMEN: Soft, normal bowel sounds. MUSCULOSKELETAL: Baseline range of motion and strength. SKIN: Warm and intact. No pallor. No rash. No redness. Capillary refill seems to be intact. NEUROLOGIC: No evidence of any new focal weakness. Cranial nerves seems to be intact. PSYCHIATRIC: The patient is in good mood. No anxiety. Optimal judgment. IMAGIN. EKG was reviewed. The patient has sinus bradycardia, ventricular rate 53, OK 160, QRS 90, QT corrected 457. 2. Brain CT was done. The patient had no evidence of acute intracranial abnormalities. 3. A chest x-ray was done, the patient has no evidence of acute cardiopulmonary disease. LABORATORY DATA: Reviewed. The patient has white count 8.9, hemoglobin 11.9, MCV 87.4, platelet count 269. Chemistry: Sodium 128, potassium 4.2, chloride 94, carbon dioxide 24, anion gap 14, BUN 15, creatinine 1.12, GFR was 46, glucose was 228. Serum osmolality 277, calcium 9.0, total bilirubin 0.5. LFTs were negative. Troponin was negative x2. UA was negative. ASSESSMENT AND PLAN: The patient will be placed in the hospital with following medical problems: 1. Hypertensive urgency, hard to control hypertension. The patient reports she has been taking medications. Heart rate is in the lower side. We will reconcile home medication and avoid medications that might drop the heart rate more. We will consult Dr. Farr to help with medication reconciliation and choice of medications for discharge. 2. We will continue to monitor closely. No evidence of any end-organ damage. 3. Normocytic anemia. This just presented here now. We will monitor hemoglobin. If not significant, can be followed as outpatient. 4. Hyponatremia. This is new, is acute, moderate. Sodium 128. We will monitor sodium level. We will not give IV fluid at this point, because of the high blood pressure. Ideally, we will try to aim for a sodium of 130 for discharge. 5. Hyperglycemia. No history of diabetes, could be related to acute physical distress or glucose intolerance. This can be followed as outpatient. No need for any acute intervention at this point. 6. Deep venous thrombosis prophylaxis. 7. High cholesterol. Low-cholesterol diet is advised. Reconcile home medications. Job ID: [id number] [facility]
[2019-02-13] MEDS ORDERED: hydrALAZINE 25 MG TAB PO SCH (09:00)
[2019-02-13] MEDS ORDERED: cloNIDine 0.1 MG TAB PO SCH ×2 (09:00→10:00)
[2019-02-13] MEDS ORDERED: Prevnar 13-Val Conj/PF 0.5 ML SYRINGE IM ONE (09:00)
[2019-02-13] MEDS ORDERED: Lisinopril 20 MG TAB PO SCH (09:00)
[2019-02-13] MEDS: Aspirin 81 mg Enteric Coated Tablet PO SCH (09:26)
[2019-02-13] MEDS: hydrALAZINE 25 MG TAB PO SCH ×4 (09:26→20:01)
[2019-02-13] MEDS ORDERED: cloNIDine 0.2 MG TAB PO SCH (09:45)
--- NOTE | 2019-02-13 16:02 | CON ---
DATE OF CONSULTATION: 02/13/2019 CONSULTING PHYSICIAN: Dr. Wolfe. REASON FOR CONSULTATION: Hypertension. REASON FOR ADMISSION: Hypertension. HISTORY OF PRESENT ILLNESS: An 88-year-old female with history of hypertension, macular degeneration, hyperlipidemia, came to the hospital with headache and was found to have hypertension and bradycardia. The patient reports some allergy to medications, but she cannot recall very well. She does have a tremor also. She was also found to have bradycardia. No fever or chills. No nausea or vomiting. No chest pain or palpitation. PAST MEDICAL HISTORY: Positive for hypertension, hyperlipidemia, and macular degeneration. PAST SURGICAL HISTORY: Appendectomy. HOME MEDICATIONS: 1. Amiodarone. 2. Aspirin. 3. Atorvastatin. 4. Buspirone. 5. Clonidine. 6. Hydralazine. 7. Lisinopril. 8. Metoprolol. 9. Pantoprazole. 10. Xarelto. ALLERGIES: NO KNOWN DRUG ALLERGIES. SOCIAL HISTORY: No smoking, alcohol, or illicit drugs abuse. FAMILY HISTORY: No history of kidney disease. REVIEW OF SYSTEMS: CONSTITUTIONAL: Negative for weight loss or gain, ability to conduct usual activities. SKIN: Negative for rash, itching. EYES: Negative for double vision, pain. ENT/MOUTH: Negative for nose bleeding, neck stiffness, pain, tenderness. CARDIOVASCULAR: Negative for palpitations, dyspnea on exertion, orthopnea. RESPIRATORY: Negative for shortness of breath, wheezing, cough, hemoptysis, fever or night sweats. GASTROINTESTINAL: Negative for poor appetite, abdominal pain, heartburn, nausea, vomiting, constipation, or diarrhea. GENITOURINARY: Negative for urgency, frequency, dysuria, nocturia. MUSCULOSKELETAL: Negative for pain, swelling. NEUROLOGIC/PSYCHIATRIC: Negative for anxiety, depression. ALLERGY/IMMUNOLOGIC: Negative for skin rash, bleeding tendency. PHYSICAL EXAMINATION: GENERAL: This is a well-built female, in no apparent distress. VITAL SIGNS: Temperature 98.3, pulse 93, respiratory rate 16, and blood pressure 204/83. HEENT: Atraumatic and normocephalic. Oral mucosa moist. NECK: Supple. CV: S1 and S2 heard. Rate and rhythm regular. RESPIRATORY: Clear. GI: Abdomen is soft. MUSCULOSKELETAL: 1+ edema. DERMATOLOGIC: No skin rash. NEUROLOGIC: Alert and awake. PSYCHIATRIC: Normal mood and affect LABORATORY DATA: Hemoglobin 11.0, potassium 3.9, BUN is 14, and creatinine is 1.08. ASSESSMENT AND PLAN: 1. Chronic kidney disease, stage 3, stable. 2. Hypertension. We will check a renin aldosterone level and metanephrine. We will also check renal Doppler to rule out any renal artery stenosis. We will increase hydralazine and we will add hydrochlorothiazide with lisinopril. We will also consider calcium channel marcela. Her heart rate is better. We will consider slow dose of beta marcela if needed. 3. We will continue titrate medications and labs will be ordered. We will follow. Thank you for the consult. Job ID: [id number]
[2019-02-13] MEDS: Ondansetron PF 4 MG/2 ML Vial IVP PRN (19:57)
[2019-02-13] MEDS: Lisinopril/Hydrochlorothiazide 20 mg/12.5 mg Tablet PO SCH (20:02)
[2019-02-13] MEDS: Rivaroxaban 15 MG TAB PO SCH (20:02)
[2019-02-13] MEDS: cloNIDine 0.1 MG TAB PO SCH (20:03)
[2019-02-14] MEDS: hydrALAZINE 20 MG/ML VIAL SLOW IVP PRN ×2 (04:01→08:33)
--- NOTE | 2019-02-14 08:32 | ULT ---
RENAL DOPPLER ULTRASOUND: Date: 02/14/2019 COMPARISON: None. HISTORY: Hypertension, assess for renal artery stenosis. TECHNIQUE: Multiplanar grayscale sonographic imaging of the kidneys and urinary bladder obtained. The renal vasculature is assessed with color flow/spectral analysis/Doppler interrogation. FINDINGS: Imaged abdominal aorta is patent with a normal arterial waveform noted. The right kidney measures 10.5 x 3.6 x 4.8 cm and demonstrates no evidence for stone, hydronephrosis, or mass lesion. The left kidney measures 10.0 x 5.2 x 4.9 cm and demonstrates no evidence for stone, hydronephrosis, or mass lesion. Urinary bladder is nearly empty and not well assessed on this examination. The resistive index of the arcuate arteries on the right are 0.64-0.76 and on the left are 0.72-0.74. Abdominal aortic peak systolic velocity is 51 cm/s. Peak systolic velocity of the right renal artery is 126 cm/s and of the left renal artery is 66 cm/s. The renal artery/aortic ratio is 2.5 on the right and 1.3 on the left, within normal limits. IMPRESSION: No sonographic evidence of renal artery stenosis on the basis of velocity criteria. Transcribed Date/Time: 02/14/2019 9:03 AM
[2019-02-14] MEDS: hydrALAZINE 25 MG TAB PO SCH ×3 (09:04→20:50)
[2019-02-14] MEDS: Lisinopril/Hydrochlorothiazide 20 mg/12.5 mg Tablet PO SCH ×2 (09:04→20:59)
[2019-02-14] MEDS: Aspirin 81 mg Enteric Coated Tablet PO SCH (09:04)
[2019-02-14] MEDS: cloNIDine 0.1 MG TAB PO SCH ×2 (09:04→20:50)
[2019-02-14] MEDS ORDERED: Artificial Tears 18 DROP/0.9 ML EA EYE PRN (10:57)
--- NOTE | 2019-02-14 11:39 | PRG ---
DATE OF SERVICE: 02/14/2019 SUBJECTIVE: Patient was seen and examined at bedside and overnight events noted. Patient denies any shortness of breath or chest pain or palpitation. No history of nausea or vomiting or diarrhea or fever or chills or cramps. OBJECTIVE: GENERAL: This is a well-built female in no apparent distress. VITAL SIGNS: Temperature 98.5. Heart rate 56. Respiratory rate 20. Blood pressure 207/81. HEENT: Atraumatic, normocephalic. Oral mucosa is moist NECK: Supple. CARDIOVASCULAR: S1, S2 heard. Rate and rhythm regular. RESPIRATORY: Clear to auscultation. GASTROINTESTINAL: Abdomen is soft. MUSCULOSKELETAL: No tenderness. No edema. DERMATOLOGIC: No skin rash. NEUROLOGIC: Alert and awake and oriented X3. No focal neurologic deficits. Moving all the extremities. PSYCHIATRIC: Mood and affect normal. LABORATORY DATA: Potassium is 3.9, BUN is , creatinine is 1.08. ASSESSMENT AND PLAN: 1. Chronic kidney stage 3, stable. 2. Resistant hypertension. No renal artery stenosis per the ultrasound. Renin aldosterone level and metanephrines are pending. 3. We will add Procardia, hydralazine, and hydrochlorothiazide increased yesterday. 4. Edema, controlled. 5. Chronic anemia. 6. Prognosis guarded. Labs are pending. We will add Procardia. The patient did have swelling with amlodipine before. Watch for leg swelling. We will continue to follow. Job ID: [id number]
--- NOTE | 2019-02-14 13:26 | PDOC.HOSPP ---
- Subjective Encounter Date: 02/14/19 Encounter Time: 07:40 Subjective: Pt seen for followup re: hypertensive urgency. Denies chest pain, shortness of breath, fevers or chills. - Objective Vital Signs & Weight: Vital Signs (12 hours) Temp Pulse Resp BP BP Pulse Ox 02/14/19 11:36 98.8 F 60 22 H 216/86 H 93 L 02/14/19 09:55 207/81 H 02/14/19 09:04 56 L 221/93 H 02/14/19 08:33 56 L 02/14/19 08:06 98.5 F 56 L 20 204/91 H 92 L 02/14/19 06:00 99.3 F 57 L 15 188/79 H 92 L 02/14/19 04:01 56 L 221/93 H Weight Admit Weight 160 lb Weight 160 lb I&O: 02/13/19 02/14/19 02/15/19 06:59 06:59 06:59 Intake Total 240 1730 Output Total 750 1050 Balance -510 680 Result Diagrams: 02/13/19 02:12 02/13/19 02:12 Additional Labs: Labs and MARs reviewed by me EKG Reviewed by me: Yes (Tele: NSR) Hospitalist ROS - Review of Systems Respiratory: denies: cough, dry, shortness of breath, hemoptysis, SOB with excertion, pleuritic pain, sputum, wheezing Cardiovascular: denies: chest pain, palpitations, orthopnea, paroxysmal noc. dyspnea, edema, light headedness - Medication Medications: Active Medications Generic Name Dose Route Start Last Admin Trade Name Yadira PRN Reason Stop Dose Admin Acetaminophen 650 mg 02/13/19 01:42 02/13/19 02:27 Tylenol PO 650 mg Q4H PRN Administration Headache/Fever/Mild Pain (1-3) Aspirin 81 mg 02/13/19 09:00 02/14/19 09:04 Ecotrin PO 81 mg DAILY AJAY Administration Clonidine 0.1 mg 02/13/19 21:00 02/14/19 09:04 Catapres PO 0.1 mg BID AJAY Administration Lisinopril/HCTZ 1 tab 02/13/19 21:00 02/14/19 09:04 Prinizide 20-12.5 PO 1 tab BID AJAY Administration Hydralazine HCl 100 mg 02/13/19 15:00 02/14/19 09:04 Apresoline PO 100 mg TID AJAY Administration Hydralazine HCl 10 mg 02/14/19 03:38 02/14/19 08:33 Apresoline SLOW IVP 10 mg Q4H PRN Administration SBP Greater Than 180 Ondansetron HCl 4 mg 02/13/19 01:42 02/13/19 19:57 Zofran IVP 4 mg Q6H PRN Administration Nausea/Vomiting Pantoprazole Sodium 40 mg 02/13/19 09:00 02/14/19 09:04 Protonix PO 40 mg DAILY AJAY Administration Rivaroxaban 15 mg 02/13/19 21:00 02/13/19 20:02 Xarelto PO 15 mg HS AJAY Administration Sodium Chloride 10 ml 02/13/19 09:00 02/14/19 08:34 Flush - Normal Saline IVF 10 ml Q12HR AJAY Administration - Exam General Appearance: NAD Eye: anicteric sclera ENT: moist mucosa Neck: supple Heart: RRR Respiratory: CTAB Gastrointestinal: soft, non-tender Extremities: no cyanosis Skin: no rashes Neurological: no weakness Psychiatric: normal affect, normal behavior Hosp A/P (1) Hypertensive urgency Code(s): I16.0 - HYPERTENSIVE URGENCY Status: Acute (2) HLD (hyperlipidemia) Code(s): E78.5 - HYPERLIPIDEMIA, UNSPECIFIED Status: Chronic (3) Atrial fibrillation Code(s): I48.91 - UNSPECIFIED ATRIAL FIBRILLATION Status: Chronic - Plan PT/OT, out of bed/ambulate Blood pressure is still high. Start Procardia 60 mg daily. Continue Lisinopril/HCTZ 20/12.5 mg daily and clonidine 0.1 mg BID. Continue atorvastatin. Continue rivaroxaban for atrial fibrillation.
[2019-02-14] MEDS ORDERED: NIFEdipine XL 60 MG TAB PO SCH (13:30)
[2019-02-14] MEDS ORDERED: Enalaprilat Dihydrate 1.25 MG/ML VIAL SLOW IVP PRN (13:30)
[2019-02-14] MEDS: busPIRone HCl 10 MG TAB PO PRN (14:14)
[2019-02-14] MEDS ORDERED: Bisacodyl 5 MG TAB PO PRN (15:59)
[2019-02-14] MEDS ORDERED: Bisacodyl 5 MG TAB PO SCH (16:00)
[2019-02-14] MEDS ORDERED: Lorazepam 0.5 MG TAB PO SCH (20:15)
[2019-02-14] MEDS: Rivaroxaban 15 MG TAB PO SCH (20:38)
[2019-02-15] MEDS: hydrALAZINE 25 MG TAB PO SCH ×3 (09:02→20:38)
[2019-02-15] MEDS: NIFEdipine XL 60 MG TAB PO SCH (09:02)
[2019-02-15] MEDS: Lisinopril/Hydrochlorothiazide 20 mg/12.5 mg Tablet PO SCH ×2 (09:03→20:32)
[2019-02-15] MEDS: cloNIDine 0.1 MG TAB PO SCH ×2 (09:03→20:37)
[2019-02-15] MEDS: Aspirin 81 mg Enteric Coated Tablet PO SCH (09:03)
[2019-02-15] MEDS: Lorazepam 0.5 MG TAB PO PRN (13:10)
--- NOTE | 2019-02-15 17:50 | PDOC.HOSPP ---
- Subjective Encounter Date: 02/15/19 Encounter Time: 09:20 Subjective: Pt seen for followup re: hypertensive urgency. Reports feeling anxious. - Objective Vital Signs & Weight: Vital Signs (12 hours) Temp Pulse Resp BP BP Pulse Ox 02/15/19 15:53 98.3 F 90 18 146/67 H 94 L 02/15/19 12:14 98.3 F 75 18 178/74 H 94 L 02/15/19 08:57 98.1 F 73 16 178/77 H 93 L 02/15/19 08:00 93 L 02/15/19 06:00 98.0 F 69 18 159/66 H 93 L Weight Admit Weight 160 lb Weight 151 lb 11.2 oz I&O: 02/14/19 02/15/19 02/16/19 06:59 06:59 06:59 Intake Total 1730 1080 Output Total 1050 900 Balance 680 180 Result Diagrams: 02/13/19 02:12 02/13/19 02:12 Additional Labs: Labs and MARs reviewed by me EKG Reviewed by me: Yes (Tele: NSR) Hospitalist ROS - Review of Systems Cardiovascular: denies: chest pain, palpitations, orthopnea, paroxysmal noc. dyspnea, edema, light headedness Gastrointestinal: denies: nausea, vomitting, abdominal pain, diarrhea, constipation, melena, hematochezia - Medication Medications: Active Medications Generic Name Dose Route Start Last Admin Trade Name Freq PRN Reason Stop Dose Admin Acetaminophen 650 mg 02/13/19 01:42 02/13/19 02:27 Tylenol PO 650 mg Q4H PRN Administration Headache/Fever/Mild Pain (1-3) Aspirin 81 mg 02/13/19 09:00 02/15/19 09:03 Ecotrin PO 81 mg DAILY AJAY Administration Buspirone HCl 10 mg 02/13/19 01:38 02/14/19 14:14 Buspar PO 10 mg BID PRN Administration Anxiety Clonidine 0.1 mg 02/13/19 21:00 02/15/19 09:03 Catapres PO 0.1 mg BID AJAY Administration Lisinopril/HCTZ 1 tab 02/13/19 21:00 02/15/19 09:03 Prinizide 20-12.5 PO 1 tab BID AJAY Administration Hydralazine HCl 100 mg 02/13/19 15:00 02/15/19 15:56 Apresoline PO 100 mg TID AJAY Administration Hydralazine HCl 10 mg 02/14/19 03:38 02/14/19 08:33 Apresoline SLOW IVP 10 mg Q4H PRN Administration SBP Greater Than 180 Lorazepam 0.5 mg 02/15/19 12:19 02/15/19 13:10 Ativan PO 0.5 mg BID PRN Administration Anxiety Nifedipine 60 mg 02/15/19 09:00 02/15/19 09:02 Procardia Xl PO 60 mg DAILY AJAY Administration Ondansetron HCl 4 mg 02/13/19 01:42 02/13/19 19:57 Zofran IVP 4 mg Q6H PRN Administration Nausea/Vomiting Pantoprazole Sodium 40 mg 02/13/19 09:00 02/15/19 09:03 Protonix PO 40 mg DAILY AJAY Administration Rivaroxaban 15 mg 02/13/19 21:00 02/14/19 20:38 Xarelto PO 15 mg HS AJAY Administration Sodium Chloride 10 ml 02/13/19 09:00 02/15/19 09:03 Flush - Normal Saline IVF 10 ml Q12HR AJAY Administration - Exam General Appearance: NAD Eye: anicteric sclera ENT: moist mucosa Neck: supple Heart: RRR, no gallops, no rubs Respiratory: CTAB Gastrointestinal: soft, non-distended Neurological: no weakness Psychiatric: normal behavior Hosp A/P (1) Hypertensive urgency Code(s): I16.0 - HYPERTENSIVE URGENCY Status: Acute (2) HLD (hyperlipidemia) Code(s): E78.5 - HYPERLIPIDEMIA, UNSPECIFIED Status: Chronic (3) Atrial fibrillation Code(s): I48.91 - UNSPECIFIED ATRIAL FIBRILLATION Status: Chronic - Plan out of bed/ambulate Blood pressure improved, continue to monitor vital signs and titrate antihypertensives as needed. Continue atorvastatin. Continue rivaroxaban for atrial fibrillation. PRN lorazepam for anxiety. Likely home 24-48 hours.
[2019-02-15] MEDS: Rivaroxaban 15 MG TAB PO SCH (20:03)
[2019-02-15] MEDS: Polyethylene Glycol 3350 17 GM Packet PO PRN (20:33)
--- NOTE | 2019-02-16 00:41 | PDOC.EVN ---
Event Note - Event Note Event Note: Patient went into aflutter with RVR overnight; asymptomatic. She is anticoagulated with Xarelto. Will hold patient's Procardia, and will give 10 mg Cardizem IV push and start drip for rate control. Cardiology Consult in a.m.
[2019-02-16] MEDS: Diltiazem 125 MG in Sodium Chloride 0.9% 100 ML IVPB SCH (01:20)
[2019-02-16] MEDS: cloNIDine 0.1 MG TAB PO SCH (08:40)
[2019-02-16] MEDS: hydrALAZINE 25 MG TAB PO SCH ×3 (08:40→21:04)
[2019-02-16] MEDS ORDERED: Magnesium Citrate 300 ML BOT PO SCH (09:45)
[2019-02-16] MEDS: Amiodarone 200 MG TAB PO SCH ×3 (10:04→21:03)
[2019-02-16] MEDS: Aspirin 81 mg Enteric Coated Tablet PO SCH (10:05)
[2019-02-16] MEDS: Lisinopril/Hydrochlorothiazide 20 mg/12.5 mg Tablet PO SCH ×2 (10:05→21:05)
--- NOTE | 2019-02-16 15:14 | PDOC.HOSPP ---
- Subjective Encounter Date: 02/16/19 Encounter Time: 07:40 Subjective: Pt seen for followup re: a. fib with RVR. c/o contipation. No other complaints. - Objective Vital Signs & Weight: Vital Signs (12 hours) Temp Pulse Resp BP BP Pulse Ox 02/16/19 11:54 98.3 F 77 18 128/60 93 L 02/16/19 10:05 110 H 125/55 L 02/16/19 08:40 110 H 125/55 L 02/16/19 08:00 97.7 F 110 H 18 125/55 L 94 L 02/16/19 04:00 103 H 18 129/60 Weight Admit Weight 160 lb Weight 153 lb 4.8 oz I&O: 02/15/19 02/16/19 02/17/19 06:59 06:59 06:59 Intake Total 1080 830 Output Total 900 400 Balance 180 430 Result Diagrams: 02/13/19 02:12 02/13/19 02:12 Additional Labs: Labs and MARs reviewed by nm Hospitalist ROS - Review of Systems Cardiovascular: denies: chest pain, palpitations, orthopnea, paroxysmal noc. dyspnea, edema, light headedness Gastrointestinal: reports: constipation. denies: nausea, vomitting, abdominal pain, diarrhea, melena, hematochezia - Medication Medications: Active Medications Generic Name Dose Route Start Last Admin Trade Name Freq PRN Reason Stop Dose Admin Acetaminophen 650 mg 02/13/19 01:42 02/13/19 02:27 Tylenol PO 650 mg Q4H PRN Administration Headache/Fever/Mild Pain (1-3) Amiodarone HCl 200 mg 02/16/19 09:00 02/16/19 10:04 Cordarone PO 200 mg TID AJAY Administration Aspirin 81 mg 02/13/19 09:00 02/16/19 10:05 Ecotrin PO 81 mg DAILY AJAY Administration Buspirone HCl 10 mg 02/13/19 01:38 02/14/19 14:14 Buspar PO 10 mg BID PRN Administration Anxiety Lisinopril/HCTZ 1 tab 02/13/19 21:00 02/16/19 10:05 Prinizide 20-12.5 PO 1 tab BID AJAY Administration Hydralazine HCl 100 mg 02/13/19 15:00 02/16/19 08:40 Apresoline PO Not Given TID AJAY Hydralazine HCl 10 mg 02/14/19 03:38 02/14/19 08:33 Apresoline SLOW IVP 10 mg Q4H PRN Administration SBP Greater Than 180 Diltiazem HCl 125 mg/ Sodium 125 mls @ 5 mls/hr 02/16/19 01:00 02/16/19 01:20 Chloride IVPB 125 mls INF AJAY Administration Protocol 5 MG/HR Lorazepam 0.5 mg 02/15/19 12:19 02/15/19 13:10 Ativan PO 0.5 mg BID PRN Administration Anxiety Nifedipine 60 mg 02/15/19 09:00 02/15/19 09:02 Procardia Xl PO 60 mg DAILY AJAY Administration Ondansetron HCl 4 mg 02/13/19 01:42 02/13/19 19:57 Zofran IVP 4 mg Q6H PRN Administration Nausea/Vomiting Pantoprazole Sodium 40 mg 02/13/19 09:00 02/16/19 10:05 Protonix PO 40 mg DAILY AJAY Administration Polyethylene Glycol 17 gm 02/15/19 20:21 02/15/19 20:33 Miralax PO 17 gm DAILYPRN PRN Administration Constipation Rivaroxaban 15 mg 02/13/19 21:00 02/15/19 20:03 Xarelto PO 15 mg HS AJAY Administration Sodium Chloride 10 ml 02/13/19 09:00 02/16/19 10:05 Flush - Normal Saline IVF 10 ml Q12HR AJAY Administration Sodium Chloride 10 ml 02/13/19 00:01 02/16/19 01:19 Flush - Normal Saline IVF 10 ml PRN PRN Administration Saline Flush - Exam General Appearance: NAD Eye: anicteric sclera ENT: moist mucosa Neck: supple Heart: irregular Respiratory: CTAB Gastrointestinal: soft, non-tender Neurological: no weakness Musculoskeletal: no muscle wasting Psychiatric: normal affect, normal behavior Hosp A/P (1) Atrial fibrillation with RVR Code(s): I48.91 - UNSPECIFIED ATRIAL FIBRILLATION Status: Acute (2) HLD (hyperlipidemia) Code(s): E78.5 - HYPERLIPIDEMIA, UNSPECIFIED Status: Chronic (3) Atrial fibrillation Code(s): I48.91 - UNSPECIFIED ATRIAL FIBRILLATION Status: Chronic (4) Hypertensive urgency Code(s): I16.0 - HYPERTENSIVE URGENCY Status: Resolved - Plan out of bed/ambulate Pt is on cardizem drip, cardiology service consulted. Continue rivaroxaban. Trial magnesium citrate aofr constipation. Continue atorvastatin. PRN lorazepam for anxiety.
--- NOTE | 2019-02-16 16:46 | CON ---
DATE OF CONSULTATION: HISTORY OF PRESENT ILLNESS: The patient is an 88-year-old woman with a history of atrial fibrillation, who presented with a severe headache. The patient was seen in January of last year with new-onset atrial fibrillation. The patient has been treated with amiodarone and Xarelto. The patient was in her usual state of health when she presented with severe headache. The patient denied having any chest discomfort or palpitations. The patient was admitted to the hospital. She was also noted to have a slow heart rate and her several medications were discontinued. The patient went into a rapid irregular heart rhythm. The patient denied having any palpitations. The patient denies having any chest discomfort. PAST MEDICAL HISTORY: Significant for; 1. Atrial fibrillation. 2. Hypertension. 3. Dyslipidemia. 4. Macular degeneration. PAST SURGICAL HISTORY: Appendectomy. SOCIAL HISTORY: Nonsmoker. ALLERGIES: SEE NURSING LIST. MEDICATIONS: On admission include; 1. Hydralazine 100 b.i.d. 2. Clonidine 0.1 b.i.d. 3. Protonix 40 daily. 4. Xarelto 15 daily. 5. Lipitor 40 at bedtime. 6. Amiodarone 200 daily. 7. Lesterol. 8. Lisinopril 20 daily. 9. Metoprolol XL 50 daily. 10. Aspirin 81 daily. FAMILY HISTORY: Positive family history of coronary artery disease. REVIEW OF SYSTEMS: 10-point review of systems is noticeable for increasing fatigue. PHYSICAL EXAMINATION: GENERAL: Well-developed woman, in no acute distress. VITAL SIGNS: Blood pressure 125/55. NECK: No jugular venous distention. LUNGS: Clear to auscultation. HEART: Irregular rate and rhythm. Normal S1, S2. ABDOMEN: Nondistended. EXTREMITIES: Show trace edema. VASCULAR: Radial pulses are 2+. LABORATORY DATA: Sodium 131, potassium 3.9, chloride 96, bicarbonate 28, BUN 14, creatinine 1.0, glucose 153. Troponin less than 0.01. Her initial EKG revealed her to have sinus bradycardia with left axis deviation. Telemetry monitoring revealed rapid atrial fibrillation. IMPRESSION: 1. Paroxysmal atrial fibrillation. 2. Sinus bradycardia. 3. Dyslipidemia. 4. Hypertension. PLAN: This patient presents with hypertensive crisis. Her several medications were discontinued including amiodarone and Toprol due to her slow heart rate. The patient has gone back into atrial fibrillation. She was treated with IV Cardizem. We will restart the patient on low-dose amiodarone. We will avoid Toprol. We will follow this patient with you through her hospitalization. Please call my office. Job ID: [id number]
[2019-02-16] MEDS: Rivaroxaban 15 MG TAB PO SCH (21:06)
[2019-02-17] MEDS: Diltiazem 125 MG in Sodium Chloride 0.9% 100 ML IVPB SCH (00:35)
[2019-02-17 04:37] LABS: #Basophils 0.1 thou/uL (0.0-0.2); #Eosinphils 0.2 thou/uL (0.0-0.7); #Lymphocytes 1.5 thou/uL (1.20-3.40); #Monocytes 1.4 thou/uL (0.11-0.59); #Neutrophils 7.7 thou/uL (1.40-6.50); %Basophils 0.5 % (0.0-1.0); %Eosinophils 1.8 % (0.0-10.0); %Lymphocytes 13.9 % (21.0-51.0); %Monocytes 13.2 % (0.0-10.0); %Neutrophils 70.6 % (42.0-75.0); Hemoglobin 12.5 g/dL (12.0-16.0); Mean Corpuscular HGB CONC 32.5 g/dL (32.0-36.0); Mean Corpuscular Volume 86.3 fL (78.0-98.0); Mean Platelet Volume 8.3 fL (7.4-10.4); Platelet Count 285 thou/uL (130-400); RBC Distribution Width 14.3 % (11.5-14.5); Red Blood Cell (RBC) Count 4.48 mill/uL (4.20-5.40); White Blood Cell (WBC) Count 10.9 thou/uL (4.8-10.8)
[2019-02-17 04:54] LABS: Anion Gap 12 mmol/L (10-20); BUN (Urea Nitrogen) 28 mg/dL (9.8-20.1); Calc. Creatinine Clearance 25 mL/min (70-130); Calcium 8.9 mg/dL (7.8-10.44); Carbon Dioxide 32 mmol/L (23-31); Chloride 88 mmol/L (98-107); Estimated GFR-MDRD 27; Glucose 119 mg/dL (83-110); Potassium 3.8 mmol/L (3.5-5.1); Sodium 128 mmol/L (136-145)
[2019-02-17] MEDS: Lisinopril/Hydrochlorothiazide 20 mg/12.5 mg Tablet PO SCH (09:00)
[2019-02-17] MEDS: hydrALAZINE 25 MG TAB PO SCH ×3 (09:00→20:25)
[2019-02-17] MEDS: Aspirin 81 mg Enteric Coated Tablet PO SCH (09:00)
[2019-02-17] MEDS: Amiodarone 200 MG TAB PO SCH (09:12)
[2019-02-17] MEDS ORDERED: Sodium Chloride 0.9% 1,000 ML IV SCH (10:00)
[2019-02-17] MEDS ORDERED: Dronedarone HCl 400 MG TAB PO SCH (10:15)
[2019-02-17] MEDS: NIFEdipine XL 60 MG TAB PO SCH (10:28)
[2019-02-17] MEDS ORDERED: NIFEdipine XL 90 MG TAB PO SCH (11:15)
[2019-02-17] MEDS: Sodium Chloride 0.9% 1,000 ML IV SCH (12:00)
[2019-02-17] MEDS: Lorazepam 0.5 MG TAB PO PRN (12:52)
--- NOTE | 2019-02-17 12:57 | PRG ---
DATE OF SERVICE: 02/17/2019 SUBJECTIVE: An 88-year-old female, being seen for acute kidney injury. The patient denies nausea, vomiting, or chest pain. OBJECTIVE: See above. Awake, alert, in no acute distress. VITAL SIGNS: Afebrile, pulse 75, breathing 16, blood pressure 148/65. GENERAL APPEARANCE AND MENTAL STATUS: Fair. HEAD/NECK: Normocephalic. Atraumatic. EYES: EOMI. No deformity. EARS: Clear. No ulcers. NOSE: Intact. No lesions. MOUTH: Clear. No discharge. THROAT: Clear. No exudate. LUNGS: Clear. No crackles. CARDIAC: S1, S2. No rub. ABDOMEN: Benign. Bowel sounds positive. GENITALIA/RECTUM: Arriaga absent. BACK/EXTREMITIES: Edema 0+. NEUROLOGICAL: Alert and motor intact. SKIN: LYMPHATICS: LABORATORY DATA: Reviewed. IMPRESSION: 1. Acute kidney injury, chronic kidney disease due to decreased effective of arterial blood volume. Stop lisinopril and hydrochlorothiazide. Titrate Procardia. 2. Hypertension, increase Procardia. 3. Anemia, stable. Medication based on GFR appropriate. No indication for dialysis. Job ID: [id number]
--- NOTE | 2019-02-17 13:13 | PDOC.HOSPP ---
- Subjective Encounter Date: 02/17/19 Encounter Time: 07:20 Subjective: Pt seen for followup re: Acute kidney injury. No complaints. - Objective Vital Signs & Weight: Vital Signs (12 hours) Temp Pulse Resp BP Pulse Ox 02/17/19 12:55 98.7 F 74 18 140/64 98 02/17/19 12:52 76 02/17/19 10:28 76 02/17/19 09:00 76 02/17/19 08:16 98.8 F 76 18 148/65 H 93 L 02/17/19 03:23 97.6 F 64 18 137/63 93 L Weight Admit Weight 160 lb Weight 152 lb 14.4 oz I&O: 02/16/19 02/17/19 02/18/19 06:59 06:59 06:59 Intake Total 830 1320 Output Total 400 1230 Balance 430 90 Result Diagrams: 02/17/19 04:16 02/17/19 04:16 Additional Labs: Labs and MARs reviewed by me EKG Reviewed by me: Yes (Tele: NSR) Hospitalist ROS - Review of Systems Cardiovascular: denies: chest pain, palpitations, orthopnea, paroxysmal noc. dyspnea, edema, light headedness Gastrointestinal: denies: nausea, vomiting, abdominal pain, diarrhea, constipation, melena, hematochezia - Medication Medications: Active Medications Generic Name Dose Route Start Last Admin Trade Name Freq PRN Reason Stop Dose Admin Acetaminophen 650 mg 02/13/19 01:42 02/13/19 02:27 Tylenol PO 650 mg Q4H PRN Administration Headache/Fever/Mild Pain (1-3) Aspirin 81 mg 02/13/19 09:00 02/17/19 09:00 Ecotrin PO 81 mg DAILY AJAY Administration Bisacodyl 10 mg 02/14/19 15:59 02/17/19 09:01 Dulcolax PO 10 mg DAILYPRN PRN Administration Constipation Buspirone HCl 10 mg 02/13/19 01:38 02/14/19 14:14 Buspar PO 10 mg BID PRN Administration Anxiety Hydralazine HCl 100 mg 02/13/19 15:00 02/17/19 09:00 Apresoline PO 100 mg TID AJAY Administration Hydralazine HCl 10 mg 02/14/19 03:38 02/14/19 08:33 Apresoline SLOW IVP 10 mg Q4H PRN Administration SBP Greater Than 180 Sodium Chloride 1,000 mls @ 50 mls/hr 02/17/19 11:15 02/17/19 12:00 Normal Saline 0.9% IV Not Given .Q20H AJAY Lorazepam 0.5 mg 02/15/19 12:19 02/17/19 12:52 Ativan PO 0.5 mg BID PRN Administration Anxiety Ondansetron HCl 4 mg 02/13/19 01:42 02/13/19 19:57 Zofran IVP 4 mg Q6H PRN Administration Nausea/Vomiting Pantoprazole Sodium 40 mg 02/13/19 09:00 02/17/19 09:00 Protonix PO 40 mg DAILY AJAY Administration Polyethylene Glycol 17 gm 02/15/19 20:21 02/15/19 20:33 Miralax PO 17 gm DAILYPRN PRN Administration Constipation Rivaroxaban 15 mg 02/13/19 21:00 02/16/19 21:06 Xarelto PO 15 mg HS AJAY Administration Sodium Chloride 10 ml 02/13/19 09:00 02/17/19 09:02 Flush - Normal Saline IVF 10 ml Q12HR AJAY Administration Sodium Chloride 10 ml 02/13/19 00:01 02/16/19 01:19 Flush - Normal Saline IVF 10 ml PRN PRN Administration Saline Flush - Exam General Appearance: NAD Eye: anicteric sclera ENT: moist mucosa Neck: supple Heart: RRR Respiratory: CTAB Gastrointestinal: soft Extremities: no cyanosis Neurological: no weakness Psychiatric: normal affect, normal behavior Hosp A/P (1) PHYLLIS (acute kidney injury) Code(s): N17.9 - ACUTE KIDNEY FAILURE, UNSPECIFIED Status: Acute (2) HLD (hyperlipidemia) Code(s): E78.5 - HYPERLIPIDEMIA, UNSPECIFIED Status: Chronic (3) Atrial fibrillation Code(s): I48.91 - UNSPECIFIED ATRIAL FIBRILLATION Status: Chronic (4) Hypertensive urgency Code(s): I16.0 - HYPERTENSIVE URGENCY Status: Resolved (5) Atrial fibrillation with RVR Code(s): I48.91 - UNSPECIFIED ATRIAL FIBRILLATION Status: Resolved - Plan out of bed/ambulate Start IV fluids, hold lisinopril and HCTZ. Pt started on Multaq. Continue atorvastatin. PRN lorazepam for anxiety. Pt could not drink mag citrate, try milk of magnesia.
[2019-02-17] MEDS ORDERED: Milk Of Magnesia 30 ML UDCUP PO SCH (13:15)
[2019-02-17] MEDS ORDERED: Lorazepam 0.5 MG TAB PO SCH (13:30)
[2019-02-17] MEDS ORDERED: hydrALAZINE 25 MG TAB PO SCH (17:00)
[2019-02-17] MEDS: Dronedarone HCl 400 MG TAB PO SCH (17:27)
[2019-02-17] MEDS: Acetaminophen 325 MG TAB PO PRN (18:33)
[2019-02-17] MEDS: busPIRone HCl 10 MG TAB PO PRN (20:25)
[2019-02-17] MEDS: Rivaroxaban 15 MG TAB PO SCH (20:25)
--- NOTE | 2019-02-18 00:48 | PRG ---
DATE OF SERVICE: 02/17/2019 SUBJECTIVE: Ms. Craven has been mostly converted back to sinus rhythm. No current complaints. OBJECTIVE: VITAL SIGNS: Blood pressure 110/56, pulse 78, temperature 97.5. LUNGS: Clear to auscultation. HEART: Regular rate and rhythm. ABDOMEN: Soft, nontender, nondistended. EXTREMITIES: No edema. LABORATORY DATA: Hemoglobin 12.5, creatinine 1.75. IMPRESSION: Paroxysmal atrial fibrillation. RECOMMENDATIONS: Ms. Craven appears to be in sinus rhythm. Her creatinine has gone from 1.0 to 1.7. This is likely due to volume contraction. She was placed on amiodarone therapy. We would recommend changing to Multaq. We would continue Xarelto as prescribed. Otherwise, once her creatinine improves, she would be okay from my standpoint to discharge home with close outpatient followup. She previously followed with a network technical analyst in [place]. She would like to follow up with us in [place]. If you have any further recommendations, please re-consult. Job ID: [id number]
[2019-02-18 04:22] LABS: #Eosinphils 0.2 thou/uL (0.0-0.7); #Lymphocytes 1.6 thou/uL (1.20-3.40); #Monocytes 1.3 thou/uL (0.11-0.59); #Neutrophils 6.9 thou/uL (1.40-6.50); %Basophils 0.4 % (0.0-1.0); %Eosinophils 1.6 % (0.0-10.0); %Lymphocytes 16.2 % (21.0-51.0); %Monocytes 12.7 % (0.0-10.0); Hemoglobin 12.5 g/dL (12.0-16.0); Mean Corpuscular HGB CONC 33.1 g/dL (32.0-36.0); Mean Corpuscular Hemoglobin 28.9 pg (27.0-31.0); Mean Corpuscular Volume 87.3 fL (78.0-98.0); Mean Platelet Volume 8.2 fL (7.4-10.4); Platelet Count 309 thou/uL (130-400); RBC Distribution Width 14.5 % (11.5-14.5); Red Blood Cell (RBC) Count 4.33 mill/uL (4.20-5.40)
[2019-02-18 04:46] LABS: Anion Gap 14 mmol/L (10-20); BUN (Urea Nitrogen) 33 mg/dL (9.8-20.1); Calc. Creatinine Clearance 20 mL/min (70-130); Calcium 8.8 mg/dL (7.8-10.44); Carbon Dioxide 29 mmol/L (23-31); Chloride 89 mmol/L (98-107); Estimated GFR-MDRD 21; Glucose 116 mg/dL (83-110); Potassium 3.8 mmol/L (3.5-5.1); Sodium 128 mmol/L (136-145)
[2019-02-18] MEDS: Sodium Chloride 0.9% 1,000 ML IV SCH ×2 (05:02→21:57)
[2019-02-18] MEDS ORDERED: Hydrochlorothiazide 25 MG TAB PO SCH (09:00)
[2019-02-18] MEDS: busPIRone HCl 10 MG TAB PO PRN ×2 (10:01→21:57)
[2019-02-18] MEDS: Aspirin 81 mg Enteric Coated Tablet PO SCH (10:07)
[2019-02-18] MEDS: hydrALAZINE 25 MG TAB PO SCH ×3 (10:07→21:55)
[2019-02-18] MEDS: NIFEdipine XL 90 MG TAB PO SCH (10:07)
[2019-02-18] MEDS: Dronedarone HCl 400 MG TAB PO SCH ×2 (10:08→18:36)
--- NOTE | 2019-02-18 10:18 | PRG ---
DATE OF SERVICE: 02/18/2019 SUBJECTIVE: This is an 88-year-old female, being seen for acute kidney injury. The patient denied any nausea, vomiting, or chest pain. OBJECTIVE: CONSTITUTIONAL: The patient is awake and alert. VITAL SIGNS: Afebrile, pulse 78, breathing 16, blood pressure 139/62. GENERAL APPEARANCE AND MENTAL STATUS: Fair. HEAD/NECK: Normocephalic. Atraumatic. EYES: EOMI. No deformity. EARS: Clear. No ulcers. NOSE: Intact. No lesions. MOUTH: Clear. No discharge. THROAT: Clear. No exudate. LUNGS: Clear. No crackles. CARDIAC: S1, S2. No rub. ABDOMEN: Benign. Bowel sounds positive. GENITALIA/RECTUM: Arriaga absent. BACK/EXTREMITIES: Edema 0+. NEUROLOGICAL: Alert and motor intact. SKIN: LYMPHATICS: LABORATORY DATA: Hemoglobin 12.5, creatinine 2.1. IMPRESSION AND PLAN: Acute kidney injury with chronic kidney disease stage 4 due to acute tubular necrosis, improved. The patient could have renal artery stenosis . Creatinine has risen. No indication for dialysis. Continue hydration. Anemia, stable. Medication based on GFR appropriate. Job ID: [id number]
[2019-02-18] MEDS: Polyethylene Glycol 3350 17 GM Packet PO PRN (11:55)
[2019-02-18] MEDS: Acetaminophen 325 MG TAB PO PRN ×2 (12:11→21:59)
--- NOTE | 2019-02-18 13:08 | PDOC.HOSPP ---
- Subjective Encounter Date: 02/18/19 Encounter Time: 07:20 Subjective: Pt seen for followup re: acute on chronic stage 3 renal failure. - Objective Vital Signs & Weight: Vital Signs (12 hours) Temp Pulse Resp BP BP Pulse Ox 02/18/19 11:57 98.2 F 74 16 117/58 L 94 L 02/18/19 10:07 73 02/18/19 08:00 96.4 F L 73 16 139/60 95 02/18/19 03:27 97.8 F 102 H 20 123/57 L 93 L Weight Admit Weight 160 lb Weight 157 lb 12.8 oz I&O: 02/17/19 02/18/19 02/19/19 06:59 06:59 06:59 Intake Total 1320 2088 720 Output Total 1230 500 Balance 90 1588 720 Result Diagrams: 02/18/19 03:55 02/18/19 03:54 Additional Labs: Labs and MARs reviewed by me EKG Reviewed by me: Yes (Tele: NSR) Hospitalist ROS - Review of Systems Cardiovascular: denies: chest pain, palpitations, orthopnea, paroxysmal noc. dyspnea, edema, light headedness Gastrointestinal: denies: nausea, vomiting, abdominal pain, diarrhea, constipation, melena, hematochezia - Medication Medications: Active Medications Generic Name Dose Route Start Last Admin Trade Name Freq PRN Reason Stop Dose Admin Acetaminophen 650 mg 02/13/19 01:42 02/18/19 12:11 Tylenol PO 650 mg Q4H PRN Administration Headache/Fever/Mild Pain (1-3) Aspirin 81 mg 02/13/19 09:00 02/18/19 10:07 Ecotrin PO 81 mg DAILY AJAY Administration Bisacodyl 10 mg 02/14/19 15:59 02/17/19 09:01 Dulcolax PO 10 mg DAILYPRN PRN Administration Constipation Buspirone HCl 10 mg 02/13/19 01:38 02/18/19 10:01 Buspar PO 10 mg BID PRN Administration Anxiety Dronedarone 400 mg 02/17/19 17:00 02/18/19 10:08 Multaq PO 400 mg BID-WM AJAY Administration Hydralazine HCl 10 mg 02/14/19 03:38 02/14/19 08:33 Apresoline SLOW IVP 10 mg Q4H PRN Administration SBP Greater Than 180 Hydralazine HCl 50 mg 02/17/19 21:00 02/18/19 10:07 Apresoline PO 50 mg TID AJAY Administration Sodium Chloride 1,000 mls @ 50 mls/hr 02/17/19 11:15 02/18/19 05:02 Normal Saline 0.9% IV 1,000 mls .Q20H AJAY Administration Lorazepam 0.5 mg 02/15/19 12:19 02/17/19 12:52 Ativan PO 0.5 mg BID PRN Administration Anxiety Nifedipine 90 mg 02/18/19 09:00 02/18/19 10:07 Procardia Xl PO 90 mg DAILY AJAY Administration Ondansetron HCl 4 mg 02/13/19 01:42 02/13/19 19:57 Zofran IVP 4 mg Q6H PRN Administration Nausea/Vomiting Pantoprazole Sodium 40 mg 02/13/19 09:00 02/18/19 10:07 Protonix PO 40 mg DAILY AJAY Administration Polyethylene Glycol 17 gm 02/15/19 20:21 02/18/19 11:55 Miralax PO 17 gm DAILYPRN PRN Administration Constipation Rivaroxaban 15 mg 02/13/19 21:00 02/17/19 20:25 Xarelto PO 15 mg HS AJAY Administration Sodium Chloride 10 ml 02/13/19 09:00 02/18/19 10:11 Flush - Normal Saline IVF Not Given Q12HR AJAY Sodium Chloride 10 ml 02/13/19 00:01 02/16/19 01:19 Flush - Normal Saline IVF 10 ml PRN PRN Administration Saline Flush - Exam General Appearance: NAD Eye: anicteric sclera ENT: no oropharyngeal lesions, moist mucosa Neck: supple, no lymphadenopathy Heart: RRR Respiratory: CTAB Gastrointestinal: soft, non-tender Extremities: no clubbing Skin: no lesions Psychiatric: normal affect, normal behavior Hosp A/P (1) Acute worsening of stage 3 chronic kidney disease Code(s): N18.3 - CHRONIC KIDNEY DISEASE, STAGE 3 (MODERATE) Status: Acute (2) Hyponatremia Code(s): E87.1 - HYPO-OSMOLALITY AND HYPONATREMIA Status: Acute (3) HLD (hyperlipidemia) Code(s): E78.5 - HYPERLIPIDEMIA, UNSPECIFIED Status: Chronic (4) Atrial fibrillation Code(s): I48.91 - UNSPECIFIED ATRIAL FIBRILLATION Status: Chronic (5) Hypertensive urgency Code(s): I16.0 - HYPERTENSIVE URGENCY Status: Resolved (6) Atrial fibrillation with RVR Code(s): I48.91 - UNSPECIFIED ATRIAL FIBRILLATION Status: Resolved - Plan plan discussed w/ family, out of bed/ambulate Creatinine worse today at 2.18, continue IV fluids, continue to hold lisinopril and HCTZ. Continue Multaq. Continue atorvastatin. Continue PRN lorazepam for anxiety. Sodium 128 today, follow lytes.
[2019-02-18 18:08] LABS: Metanephrine,Plasma <10 pg/mL (0-62); Normetanephrine,Pl 13 pg/mL (0-145)
[2019-02-18] MEDS: Ondansetron PF 4 MG/2 ML Vial IVP PRN (21:54)
[2019-02-18] MEDS: Rivaroxaban 15 MG TAB PO SCH (21:56)
[2019-02-19] MEDS: Lorazepam 0.5 MG TAB PO PRN (00:10)
[2019-02-19] MEDS: Sodium Chloride 0.9% 1,000 ML IV SCH (00:19)
[2019-02-19] MEDS: Calcium Carbonate 500 MG ChewTAB PO PRN (01:29)
[2019-02-19 05:47] LABS: #Eosinphils 0.1 thou/uL (0.0-0.7); #Lymphocytes 1.1 thou/uL (1.20-3.40); #Monocytes 0.8 thou/uL (0.11-0.59); #Neutrophils 6.1 thou/uL (1.40-6.50); %Basophils 0.5 % (0.0-1.0); %Eosinophils 1.8 % (0.0-10.0); %Lymphocytes 13.7 % (21.0-51.0); %Monocytes 9.9 % (0.0-10.0); %Neutrophils 74.1 % (42.0-75.0); Hemoglobin 11.9 g/dL (12.0-16.0); Mean Corpuscular HGB CONC 32.8 g/dL (32.0-36.0); Mean Corpuscular Hemoglobin 28.7 pg (27.0-31.0); Mean Corpuscular Volume 87.5 fL (78.0-98.0); Mean Platelet Volume 8.2 fL (7.4-10.4); Platelet Count 290 thou/uL (130-400); RBC Distribution Width 14.4 % (11.5-14.5); Red Blood Cell (RBC) Count 4.13 mill/uL (4.20-5.40); White Blood Cell (WBC) Count 8.2 thou/uL (4.8-10.8)
[2019-02-19 06:11] LABS: Anion Gap 12 mmol/L (10-20); BUN (Urea Nitrogen) 33 mg/dL (9.8-20.1); Calc. Creatinine Clearance 22 mL/min (70-130); Calcium 8.4 mg/dL (7.8-10.44); Carbon Dioxide 27 mmol/L (23-31); Chloride 92 mmol/L (98-107); Estimated GFR-MDRD 23; Glucose 101 mg/dL (83-110); Potassium 4.3 mmol/L (3.5-5.1); Sodium 127 mmol/L (136-145)
[2019-02-19] MEDS ORDERED: traMADol HCl 50 MG TAB PO PRN (08:56)
[2019-02-19] MEDS ORDERED: Magnesium Citrate 300 ML BOT PO SCH (10:00)
[2019-02-19] MEDS: NIFEdipine XL 90 MG TAB PO SCH (10:09)
[2019-02-19] MEDS: Aspirin 81 mg Enteric Coated Tablet PO SCH (10:09)
[2019-02-19] MEDS: busPIRone HCl 10 MG TAB PO PRN (10:10)
[2019-02-19] MEDS: Dronedarone HCl 400 MG TAB PO SCH ×2 (10:10→17:25)
[2019-02-19] MEDS: hydrALAZINE 25 MG TAB PO SCH ×3 (10:11→21:58)
--- NOTE | 2019-02-19 13:46 | PRG ---
DATE OF SERVICE: 02/19/2019 SUBJECTIVE: This is an 88-year-old female, being seen for acute kidney injury. The patient denies any nausea, vomiting, or chest pain. OBJECTIVE: GENERAL: The patient is awake and alert. VITAL SIGNS: Afebrile, pulse 76, breathing 16, blood pressure 137/60. GENERAL APPEARANCE AND MENTAL STATUS: Fair. HEAD/NECK: Normocephalic. Atraumatic. EYES: EOMI. No deformity. EARS: Clear. No ulcers. NOSE: Intact. No lesions. MOUTH: Clear. No discharge. THROAT: Clear. No exudate. LUNGS: Clear. No crackles. CARDIAC: S1, S2. No rub. ABDOMEN: Benign. Bowel sounds positive. GENITALIA/RECTUM: Arriaga absent. BACK/EXTREMITIES: Edema 0+. NEUROLOGICAL: Alert and motor intact. LABORATORY DATA: Reviewed. ASSESSMENT: 1. Chronic kidney disease, stage 4, stable. Acute kidney injury, acute tubular necrosis improved. 2. Hyponatremia, stable. I will stop IV fluids. Monitor renal function. If the patient's blood pressure decreases any lower, we will decrease nifedipine as needed. No indication for dialysis. Above findings were discussed with the patient's daughter. Job ID: [id number]
--- NOTE | 2019-02-19 15:13 | PDOC.HOSPP ---
- Subjective Encounter Date: 02/19/19 Encounter Time: 07:40 Subjective: Pt seen for followup re: acute on chronic renal failure. Says she feels better. - Objective Vital Signs & Weight: Vital Signs (12 hours) Temp Pulse Resp BP BP BP Pulse Ox 02/19/19 12:00 98.3 F 76 16 137/63 02/19/19 10:11 77 128/60 02/19/19 10:09 77 128/60 02/19/19 08:00 98.6 F 77 18 128/60 97 02/19/19 04:00 98.2 F 74 18 143/69 H 92 L Weight Admit Weight 160 lb Weight 159 lb 4.8 oz I&O: 02/18/19 02/19/19 02/20/19 06:59 06:59 06:59 Intake Total 2088 2731 Output Total 500 700 Balance 1588 2031 Result Diagrams: 02/19/19 05:04 02/19/19 05:04 Additional Labs: Labs and MARs reviewed by me EKG Reviewed by me: Yes (Tele: NSR) Hospitalist ROS - Review of Systems Cardiovascular: denies: chest pain, palpitations, orthopnea, paroxysmal noc. dyspnea, edema, light headedness Gastrointestinal: denies: nausea, vomiting, abdominal pain, diarrhea, constipation, melena, hematochezia - Medication Medications: Active Medications Generic Name Dose Route Start Last Admin Trade Name Freq PRN Reason Stop Dose Admin Acetaminophen 650 mg 02/13/19 01:42 02/18/19 21:59 Tylenol PO 650 mg Q4H PRN Administration Headache/Fever/Mild Pain (1-3) Aspirin 81 mg 02/13/19 09:00 02/19/19 10:09 Ecotrin PO 81 mg DAILY AJAY Administration Bisacodyl 10 mg 02/14/19 15:59 02/17/19 09:01 Dulcolax PO 10 mg DAILYPRN PRN Administration Constipation Buspirone HCl 10 mg 02/13/19 01:38 02/19/19 10:10 Buspar PO 10 mg BID PRN Administration Anxiety Calcium Carbonate 1,000 mg 02/19/19 00:30 02/19/19 01:29 Tums PO 1,000 mg DAILYPRN PRN Administration Heartburn or Indigestion Dronedarone 400 mg 02/17/19 17:00 02/19/19 10:10 Multaq PO 400 mg BID-WM AJAY Administration Hydralazine HCl 10 mg 02/14/19 03:38 02/14/19 08:33 Apresoline SLOW IVP 10 mg Q4H PRN Administration SBP Greater Than 180 Hydralazine HCl 50 mg 02/17/19 21:00 02/19/19 10:11 Apresoline PO 50 mg TID AJAY Administration Sodium Chloride 1,000 mls @ 50 mls/hr 02/17/19 11:15 02/19/19 00:19 Normal Saline 0.9% IV Not Given .Q20H AJAY Lorazepam 0.5 mg 02/15/19 12:19 02/19/19 00:10 Ativan PO 0.5 mg BID PRN Administration Anxiety Nifedipine 90 mg 02/18/19 09:00 02/19/19 10:09 Procardia Xl PO 90 mg DAILY AJAY Administration Ondansetron HCl 4 mg 02/13/19 01:42 02/18/19 21:54 Zofran IVP 4 mg Q6H PRN Administration Nausea/Vomiting Pantoprazole Sodium 40 mg 02/13/19 09:00 02/19/19 10:11 Protonix PO 40 mg DAILY AJAY Administration Polyethylene Glycol 17 gm 02/15/19 20:21 02/18/19 11:55 Miralax PO 17 gm DAILYPRN PRN Administration Constipation Rivaroxaban 15 mg 02/13/19 21:00 02/18/19 21:56 Xarelto PO 15 mg HS AJAY Administration Sodium Chloride 10 ml 02/13/19 09:00 02/19/19 10:12 Flush - Normal Saline IVF Not Given Q12HR AJAY Sodium Chloride 10 ml 02/13/19 00:01 02/16/19 01:19 Flush - Normal Saline IVF 10 ml PRN PRN Administration Saline Flush - Exam General Appearance: NAD Eye: anicteric sclera ENT: moist mucosa Neck: supple Heart: RRR Respiratory: CTAB Gastrointestinal: soft, non-tender Skin: no rashes Neurological: no weakness Psychiatric: normal affect, normal behavior Hosp A/P (1) Acute worsening of stage 3 chronic kidney disease Code(s): N18.3 - CHRONIC KIDNEY DISEASE, STAGE 3 (MODERATE) Status: Acute (2) Hyponatremia Code(s): E87.1 - HYPO-OSMOLALITY AND HYPONATREMIA Status: Acute (3) HLD (hyperlipidemia) Code(s): E78.5 - HYPERLIPIDEMIA, UNSPECIFIED Status: Chronic (4) Atrial fibrillation Code(s): I48.91 - UNSPECIFIED ATRIAL FIBRILLATION Status: Chronic (5) Hypertensive urgency Code(s): I16.0 - HYPERTENSIVE URGENCY Status: Resolved (6) Atrial fibrillation with RVR Code(s): I48.91 - UNSPECIFIED ATRIAL FIBRILLATION Status: Resolved - Plan Creatinine improved to 2.08, continue IV fluids. On Multaq for atrial fibrillation. On atorvastatin for dyslipidemia. Continue PRN lorazepam for anxiety. Sodium 127 today, follow pushpa, pt is not on HCTZ at this time.
[2019-02-19] MEDS: Polyethylene Glycol 3350 17 GM Packet PO PRN (16:04)
[2019-02-19 17:08] LABS: Renin Activity 0.228 ng/mL/hr (0.167-5.380)
[2019-02-19] MEDS ORDERED: Mineral Oil ENEMA PR SCH (20:15)
[2019-02-19] MEDS: Rivaroxaban 15 MG TAB PO SCH (21:58)
[2019-02-20] MEDS: Aspirin 81 mg Enteric Coated Tablet PO SCH (08:53)
[2019-02-20] MEDS: NIFEdipine XL 90 MG TAB PO SCH (08:54)
[2019-02-20] MEDS: hydrALAZINE 25 MG TAB PO SCH ×3 (08:54→19:51)
[2019-02-20] MEDS: Dronedarone HCl 400 MG TAB PO SCH ×2 (08:54→17:49)
[2019-02-20] MEDS: busPIRone HCl 10 MG TAB PO PRN (08:58)
[2019-02-20] MEDS: Calcium Carbonate 500 MG ChewTAB PO PRN ×2 (11:08→19:51)
[2019-02-20 11:57] LABS: #Eosinphils 0.1 thou/uL (0.0-0.7); #Lymphocytes 0.7 thou/uL (1.20-3.40); #Monocytes 0.8 thou/uL (0.11-0.59); #Neutrophils 6.7 thou/uL (1.40-6.50); %Basophils 0.3 % (0.0-1.0); %Eosinophils 0.9 % (0.0-10.0); %Lymphocytes 8.6 % (21.0-51.0); %Monocytes 9.4 % (0.0-10.0); %Neutrophils 80.8 % (42.0-75.0); Hemoglobin 11.9 g/dL (12.0-16.0); Mean Corpuscular HGB CONC 32.8 g/dL (32.0-36.0); Mean Corpuscular Hemoglobin 28.8 pg (27.0-31.0); Mean Corpuscular Volume 87.7 fL (78.0-98.0); Mean Platelet Volume 7.7 fL (7.4-10.4); Platelet Count 299 thou/uL (130-400); RBC Distribution Width 14.4 % (11.5-14.5); Red Blood Cell (RBC) Count 4.12 mill/uL (4.20-5.40); White Blood Cell (WBC) Count 8.3 thou/uL (4.8-10.8)
[2019-02-20 12:16] LABS: Anion Gap 13 mmol/L (10-20); BUN (Urea Nitrogen) 35 mg/dL (9.8-20.1); Calc. Creatinine Clearance 23 mL/min (70-130); Calcium 8.6 mg/dL (7.8-10.44); Carbon Dioxide 29 mmol/L (23-31); Chloride 90 mmol/L (98-107); Estimated GFR-MDRD 24; Glucose 117 mg/dL (83-110); Potassium 4.7 mmol/L (3.5-5.1); Sodium 127 mmol/L (136-145)
--- NOTE | 2019-02-20 13:05 | PRG ---
DATE OF SERVICE: 02/20/2019 SUBJECTIVE: This is an 88-year-old female being seen for acute kidney injury. The patient denied any nausea, vomiting, or chest pain. OBJECTIVE: CONSTITUTIONAL: On exam, the patient is awake and alert. VITAL SIGNS: Afebrile, pulse 75, breathing 16, and blood pressure 137/74. GENERAL APPEARANCE AND MENTAL STATUS: Fair. HEAD/NECK: Normocephalic. Atraumatic. EYES: EOMI. No deformity. EARS: Clear. No ulcers. NOSE: Intact. No lesions. MOUTH: Clear. No discharge. THROAT: Clear. No exudate. LUNGS: Clear. No crackles. CARDIAC: S1, S2. No rub. ABDOMEN: Benign. Bowel sounds positive. GENITALIA/RECTUM: Arriaga absent. BACK/EXTREMITIES: Edema 0+. NEUROLOGICAL: Alert and motor intact. SKIN: LYMPHATICS: LABORATORY DATA: Hemoglobin 11.2. Creatinine is 1.9. ASSESSMENT AND PLAN: 1. Acute kidney injury, improved. 2. Hypertension, stable. 3. Anemia, stable. 4. Acute tubular necrosis, improved. 5. Hyponatremia due to renal failure, stable. No indication for dialysis. Job ID: [id number]
--- NOTE | 2019-02-20 15:23 | PDOC.HOSPP ---
- Subjective Encounter Date: 02/20/19 Encounter Time: 15:21 Subjective: Pt seen for followup re: acute on chronic stage 3 renal failure. had small bowel movement. - Objective Vital Signs & Weight: Vital Signs (12 hours) Temp Pulse Resp BP Pulse Ox 02/20/19 11:17 97.7 F 75 16 137/74 95 02/20/19 08:54 73 93 L 02/20/19 07:32 98.2 F 73 18 148/65 H 93 L 02/20/19 03:35 97.9 F 76 18 149/65 H 94 L Weight Admit Weight 160 lb Weight 162 lb I&O: 02/19/19 02/20/19 02/21/19 06:59 06:59 06:59 Intake Total 2730 2094 Output Total 700 Balance 2030 2094 Result Diagrams: 02/20/19 11:49 02/20/19 11:49 Additional Labs: Labs and MARs reviewed by me EKG Reviewed by me: Yes (Tele: NSR) Hospitalist ROS - Review of Systems Respiratory: denies: cough, shortness of breath, SOB with excertion, pleuritic pain, wheezing Cardiovascular: denies: chest pain, palpitations, orthopnea, paroxysmal noc. dyspnea, edema, light headedness - Medication Medications: Active Medications Generic Name Dose Route Start Last Admin Trade Name Freq PRN Reason Stop Dose Admin Acetaminophen 650 mg 02/13/19 01:42 02/18/19 21:59 Tylenol PO 650 mg Q4H PRN Administration Headache/Fever/Mild Pain (1-3) Aspirin 81 mg 02/13/19 09:00 02/20/19 08:53 Ecotrin PO 81 mg DAILY AJAY Administration Bisacodyl 10 mg 02/14/19 15:59 02/17/19 09:01 Dulcolax PO 10 mg DAILYPRN PRN Administration Constipation Buspirone HCl 10 mg 02/13/19 01:38 02/20/19 08:58 Buspar PO 10 mg BID PRN Administration Anxiety Calcium Carbonate 1,000 mg 02/19/19 00:30 02/20/19 11:08 Tums PO 1,000 mg DAILYPRN PRN Administration Heartburn or Indigestion Dronedarone 400 mg 02/17/19 17:00 02/20/19 08:54 Multaq PO 400 mg BID-WM AJAY Administration Hydralazine HCl 10 mg 02/14/19 03:38 02/14/19 08:33 Apresoline SLOW IVP 10 mg Q4H PRN Administration SBP Greater Than 180 Hydralazine HCl 50 mg 02/17/19 21:00 02/20/19 08:54 Apresoline PO 50 mg TID AJAY Administration Lorazepam 0.5 mg 02/15/19 12:19 02/19/19 00:10 Ativan PO 0.5 mg BID PRN Administration Anxiety Nifedipine 90 mg 02/18/19 09:00 02/20/19 08:54 Procardia Xl PO 90 mg DAILY AJAY Administration Ondansetron HCl 4 mg 02/13/19 01:42 02/18/19 21:54 Zofran IVP 4 mg Q6H PRN Administration Nausea/Vomiting Pantoprazole Sodium 40 mg 02/13/19 09:00 02/20/19 08:54 Protonix PO 40 mg DAILY AJAY Administration Polyethylene Glycol 17 gm 02/15/19 20:21 02/19/19 16:04 Miralax PO 17 gm DAILYPRN PRN Administration Constipation Rivaroxaban 15 mg 02/13/19 21:00 02/19/19 21:58 Xarelto PO 15 mg HS AJAY Administration Sodium Chloride 10 ml 02/13/19 09:00 02/20/19 08:56 Flush - Normal Saline IVF 10 ml Q12HR AJAY Administration Sodium Chloride 10 ml 02/13/19 00:01 02/16/19 01:19 Flush - Normal Saline IVF 10 ml PRN PRN Administration Saline Flush - Exam General Appearance: NAD Eye: anicteric sclera ENT: normocephalic atraumatic, no oropharyngeal lesions Neck: supple, no JVD Heart: RRR Respiratory: CTAB, no rales Gastrointestinal: soft, non-tender Extremities: no clubbing Neurological: no weakness Psychiatric: normal affect, normal behavior Hosp A/P (1) Acute worsening of stage 3 chronic kidney disease Code(s): N18.3 - CHRONIC KIDNEY DISEASE, STAGE 3 (MODERATE) Status: Acute (2) Hyponatremia Code(s): E87.1 - HYPO-OSMOLALITY AND HYPONATREMIA Status: Acute (3) HLD (hyperlipidemia) Code(s): E78.5 - HYPERLIPIDEMIA, UNSPECIFIED Status: Chronic (4) Atrial fibrillation Code(s): I48.91 - UNSPECIFIED ATRIAL FIBRILLATION Status: Chronic (5) Hypertensive urgency Code(s): I16.0 - HYPERTENSIVE URGENCY Status: Resolved (6) Atrial fibrillation with RVR Code(s): I48.91 - UNSPECIFIED ATRIAL FIBRILLATION Status: Resolved - Plan PT/OT, out of bed/ambulate Creatinine improved to 1.98, pt is on IV fluids. Multaq for atrial fibrillation. Atorvastatin for dyslipidemia. PRN lorazepam for anxiety. Sodium stable at 127. Hypertensive urgency resolved.
[2019-02-20] MEDS ORDERED: Lidocaine Viscous Sol 2% 15 ml UD Cup SSW PRN (19:30)
[2019-02-20] MEDS: Lorazepam 0.5 MG TAB PO PRN (19:50)
[2019-02-20] MEDS: Rivaroxaban 15 MG TAB PO SCH (19:51)
[2019-02-21 05:32] LABS: #Basophils 0.1 thou/uL (0.0-0.2); #Eosinphils 0.2 thou/uL (0.0-0.7); #Lymphocytes 0.9 thou/uL (1.20-3.40); #Neutrophils 6.2 thou/uL (1.40-6.50); %Basophils 0.8 % (0.0-1.0); %Eosinophils 2.6 % (0.0-10.0); %Lymphocytes 10.5 % (21.0-51.0); %Monocytes 11.6 % (0.0-10.0); %Neutrophils 74.6 % (42.0-75.0); Hemoglobin 11.1 g/dL (12.0-16.0); Mean Corpuscular HGB CONC 32.2 g/dL (32.0-36.0); Mean Corpuscular Hemoglobin 28.5 pg (27.0-31.0); Mean Corpuscular Volume 88.3 fL (78.0-98.0); Mean Platelet Volume 8.4 fL (7.4-10.4); Platelet Count 269 thou/uL (130-400); RBC Distribution Width 14.3 % (11.5-14.5); Red Blood Cell (RBC) Count 3.91 mill/uL (4.20-5.40); White Blood Cell (WBC) Count 8.4 thou/uL (4.8-10.8)
[2019-02-21 05:51] LABS: Anion Gap 12 mmol/L (10-20); BUN (Urea Nitrogen) 33 mg/dL (9.8-20.1); Calc. Creatinine Clearance 24 mL/min (70-130); Calcium 8.3 mg/dL (7.8-10.44); Carbon Dioxide 29 mmol/L (23-31); Chloride 93 mmol/L (98-107); Estimated GFR-MDRD 25; Glucose 96 mg/dL (83-110); Potassium 4.7 mmol/L (3.5-5.1); Sodium 129 mmol/L (136-145)
[2019-02-21] MEDS: NIFEdipine XL 90 MG TAB PO SCH (09:57)
[2019-02-21] MEDS: hydrALAZINE 25 MG TAB PO SCH ×3 (09:57→20:22)
[2019-02-21] MEDS: Dronedarone HCl 400 MG TAB PO SCH ×2 (09:58→17:04)
[2019-02-21] MEDS ORDERED: Polyethylene Glycol 3350 17 GM Packet PO PRN (10:15)
[2019-02-21] MEDS ORDERED: Docusate 100 MG CAP PO SCH (10:45)
[2019-02-21] MEDS: Aspirin 81 mg Enteric Coated Tablet PO SCH (11:36)
--- NOTE | 2019-02-21 17:08 | PRG ---
DATE OF SERVICE: 02/21/2019 SUBJECTIVE: Patient was seen and examined at bedside and overnight events noted. Patient denies any shortness of breath or chest pain or palpitation. No history of nausea or vomiting or diarrhea or fever or chills or cramps. OBJECTIVE: GENERAL: This is a well-built female, in no apparent distress. VITAL SIGNS: Temperature 98.3. Heart rate 74. Respiratory rate 18. Blood pressure 137/64. HEENT: Atraumatic, normocephalic. Oral mucosa is moist. NECK: Supple. CARDIOVASCULAR: S1, S2 heard. Rate and rhythm regular. RESPIRATORY: Clear to auscultation. GASTROINTESTINAL: Abdomen is soft. MUSCULOSKELETAL: No tenderness. No edema. DERMATOLOGIC: No skin rash. NEUROLOGIC: Alert and awake and oriented x3. No focal neurologic deficits. Moving all the extremities. PSYCHIATRIC: Mood and affect normal. LABORATORY DATA: Potassium 4.7, sodium is 129, BUN is 33, creatinine is 1.8. ASSESSMENT AND PLAN: 1. Acute kidney injury, getting better. 2. Chronic kidney disease, stage 4. 3. Hypertension, better. 4. Anemia. 5. Hyponatremia, stable. Overall, labs are better. We will continue to follow. Monitor blood pressure closely. The patient was also advised to follow up with primary care for anxiety. Job ID: [id number]
[2019-02-21] MEDS: Rivaroxaban 15 MG TAB PO SCH (20:22)
[2019-02-21] MEDS: Docusate 100 MG CAP PO SCH (20:22)
[2019-02-21] MEDS: Lorazepam 0.5 MG TAB PO PRN (20:23)
[2019-02-21] MEDS: busPIRone HCl 10 MG TAB PO PRN (20:25)
--- NOTE | 2019-02-21 21:46 | PDOC.HOSPP ---
- Subjective Encounter Date: 02/21/19 Encounter Time: 11:00 Subjective: Patient seen and examined for HTN urgency. Feels gen weak. No new complaints. No overnight events - Objective Vital Signs & Weight: Vital Signs (12 hours) Temp Pulse Pulse Pulse Resp BP BP 02/21/19 20:22 77 129/61 02/21/19 19:32 02/21/19 19:12 98.4 F 77 16 02/21/19 15:05 73 82 126/58 L 02/21/19 15:04 74 02/21/19 15:00 98.3 F 74 17 02/21/19 11:37 99.3 F 77 15 BP BP BP Pulse Ox Pulse Ox Pulse Ox 02/21/19 20:22 02/21/19 19:32 94 L 02/21/19 19:12 129/61 94 L 02/21/19 15:05 138/60 94 L 93 L 02/21/19 15:04 02/21/19 15:00 137/64 94 L 02/21/19 11:37 123/58 L 93 L Weight Admit Weight 160 lb Weight 162 lb I&O: 02/20/19 02/21/19 02/22/19 06:59 06:59 06:59 Intake Total 2095 790 720 Output Total 600 1500 Balance 2095 190 -780 Result Diagrams: 02/21/19 04:51 02/22/19 05:21 Additional Labs: Laboratory Tests 02/21/19 04:51 Creatinine 1.88 H EKG Reviewed by me: Yes (Tele SR) Hospitalist ROS - Review of Systems Respiratory: denies: cough, dry, shortness of breath, hemoptysis, SOB with excertion, pleuritic pain, sputum, wheezing, other Cardiovascular: denies: chest pain, palpitations, orthopnea, paroxysmal noc. dyspnea, edema, light headedness, other Gastrointestinal: denies: nausea, vomiting, abdominal pain, diarrhea, constipation, melena, hematochezia, other - Medication Medications: Active Medications Generic Name Dose Route Start Last Admin Trade Name Freq PRN Reason Stop Dose Admin Acetaminophen 650 mg 02/13/19 01:42 02/18/19 21:59 Tylenol PO 650 mg Q4H PRN Administration Headache/Fever/Mild Pain (1-3) Aspirin 81 mg 02/13/19 09:00 02/21/19 11:36 Ecotrin PO 81 mg DAILY AJAY Administration Bisacodyl 10 mg 02/14/19 15:59 02/17/19 09:01 Dulcolax PO 10 mg DAILYPRN PRN Administration Constipation Buspirone HCl 10 mg 02/13/19 01:38 02/21/19 20:25 Buspar PO 10 mg BID PRN Administration Anxiety Calcium Carbonate 1,000 mg 02/19/19 00:30 02/20/19 19:51 Tums PO 1,000 mg DAILYPRN PRN Administration Heartburn or Indigestion Docusate Sodium 100 mg 02/21/19 21:00 02/21/19 20:22 Colace PO 100 mg BID AJAY Administration Dronedarone 400 mg 02/17/19 17:00 02/21/19 17:04 Multaq PO 400 mg BID-WM AJAY Administration Hydralazine HCl 10 mg 02/14/19 03:38 02/14/19 08:33 Apresoline SLOW IVP 10 mg Q4H PRN Administration SBP Greater Than 180 Hydralazine HCl 50 mg 02/17/19 21:00 02/21/19 20:22 Apresoline PO 50 mg TID AJAY Administration Lidocaine HCl 15 ml 02/20/19 19:30 02/20/19 19:50 Xylocaine 2% Viscous SSW 15 ml BIDPRN PRN Administration Mouth Irritation Lorazepam 0.5 mg 02/15/19 12:19 02/21/19 20:23 Ativan PO 0.5 mg BID PRN Administration Anxiety Nifedipine 90 mg 02/18/19 09:00 02/21/19 09:57 Procardia Xl PO 90 mg DAILY AJAY Administration Ondansetron HCl 4 mg 02/13/19 01:42 02/18/19 21:54 Zofran IVP 4 mg Q6H PRN Administration Nausea/Vomiting Pantoprazole Sodium 40 mg 02/13/19 09:00 02/21/19 09:57 Protonix PO 40 mg DAILY AJAY Administration Polyethylene Glycol 17 gm 02/15/19 20:21 02/19/19 16:04 Miralax PO 17 gm DAILYPRN PRN Administration Constipation Rivaroxaban 15 mg 02/13/19 21:00 02/21/19 20:22 Xarelto PO 15 mg HS AJAY Administration Sodium Chloride 10 ml 02/13/19 09:00 09/16/19 20:54 Flush - Normal Saline IVF Not Given Q12HR AJAY Sodium Chloride 10 ml 02/13/19 00:01 02/16/19 01:19 Flush - Normal Saline IVF 10 ml PRN PRN Administration Saline Flush Tramadol HCl 50 mg 02/19/19 08:56 02/21/19 20:27 Ultram PO 50 mg Q6H PRN Administration Pain - Exam General Appearance: NAD Heart: RRR, no rubs Respiratory: CTAB, no rales Gastrointestinal: soft, non-tender, normal bowel sounds Hosp A/P (1) PHYLLIS (acute kidney injury) Code(s): N17.9 - ACUTE KIDNEY FAILURE, UNSPECIFIED Status: Acute (2) Hyponatremia Code(s): E87.1 - HYPO-OSMOLALITY AND HYPONATREMIA Status: Acute (3) HLD (hyperlipidemia) Code(s): E78.5 - HYPERLIPIDEMIA, UNSPECIFIED Status: Chronic (4) Atrial fibrillation with RVR Code(s): I48.91 - UNSPECIFIED ATRIAL FIBRILLATION Status: Resolved (5) Hypertensive urgency Code(s): I16.0 - HYPERTENSIVE URGENCY Status: Acute (6) CKD (chronic kidney disease) stage 3, GFR 30-59 ml/min Code(s): N18.3 - CHRONIC KIDNEY DISEASE, STAGE 3 (MODERATE) Status: Chronic - Plan plan discussed w/ family Cont Procardia XL Cont Hydradralazine Cont other meds as above AM labs PT/OT Cont Xarelto
[2019-02-22 06:05] LABS: Anion Gap 9 mmol/L (10-20); BUN (Urea Nitrogen) 25 mg/dL (9.8-20.1); Calc. Creatinine Clearance 28 mL/min (70-130); Calcium 8.6 mg/dL (7.8-10.44); Carbon Dioxide 30 mmol/L (23-31); Chloride 93 mmol/L (98-107); Estimated GFR-MDRD 29; Glucose 95 mg/dL (83-110); Magnesium 2.8 mg/dL (1.6-2.6); Potassium 4.4 mmol/L (3.5-5.1); Sodium 128 mmol/L (136-145)
[2019-02-22] MEDS: Dronedarone HCl 400 MG TAB PO SCH ×2 (07:35→16:14)
[2019-02-22] MEDS: Aspirin 81 mg Enteric Coated Tablet PO SCH (10:02)
[2019-02-22] MEDS: Docusate 100 MG CAP PO SCH (10:02)
[2019-02-22] MEDS: NIFEdipine XL 90 MG TAB PO SCH (10:02)
[2019-02-22] MEDS: hydrALAZINE 25 MG TAB PO SCH ×3 (10:02→20:04)
--- NOTE | 2019-02-22 18:55 | PRG ---
DATE OF SERVICE: 02/22/2019 SUBJECTIVE: Patient was seen and examined at bedside and overnight events noted. Patient denies any shortness of breath or chest pain or palpitation. No history of nausea or vomiting or diarrhea or fever or chills or cramps. OBJECTIVE: GENERAL: This is an elderly female, in no apparent distress. VITAL SIGNS: Temperature 98.7. Heart rate 75. Respiratory rate 16. Blood pressure 139/82. HEENT: Atraumatic, normocephalic. Oral mucosa is moist NECK: Supple. CARDIOVASCULAR: S1, S2 heard. Rate and rhythm regular. RESPIRATORY: Clear to auscultation. GASTROINTESTINAL: Abdomen is soft. MUSCULOSKELETAL: No tenderness. No edema. DERMATOLOGIC: No skin rash. NEUROLOGIC: Alert and awake and oriented X3. No focal neurologic deficits. Moving all the extremities. PSYCHIATRIC: Mood and affect normal. LABORATORY DATA: Potassium 4.4, BUN is 25, creatinine is 1.6. ASSESSMENT AND PLAN: 1. Acute kidney injury, better. 2. Chronic kidney disease, stage 4. 3. Edema. 4. Hypertension. 5. Anemia. 6. Hyponatremia, stable. Overall, labs are stable. Avoid nephrotoxins. Job ID: [id number]
--- NOTE | 2019-02-22 19:47 | PDOC.HOSPP ---
- Subjective Encounter Date: 02/22/19 Encounter Time: 18:30 Subjective: Patient seen and examined for PHYLLIS/hyponatremia. Feels gen weak. Constipated. No CP or SOB. No other complaints. No overnight events - Objective Vital Signs & Weight: Vital Signs (12 hours) Temp Pulse Pulse Pulse Resp BP BP 02/22/19 15:28 98.4 F 82 16 02/22/19 11:33 99 F 75 16 02/22/19 09:17 76 87 154/67 H 161/72 H 02/22/19 09:00 73 80 136/66 161/72 H BP BP Pulse Ox 02/22/19 15:28 157/68 H 92 L 02/22/19 11:33 139/82 95 02/22/19 09:17 02/22/19 09:00 Weight Admit Weight 160 lb Weight 162 lb 1 oz I&O: 02/21/19 02/22/19 02/23/19 06:59 06:59 06:59 Intake Total 546 362 3202 Output Total 600 2750 525 Balance 190 -1820 1155 Result Diagrams: 02/21/19 04:51 02/22/19 05:21 EKG Reviewed by me: Yes (Tele SR) Hospitalist ROS - Review of Systems Respiratory: denies: cough, dry, shortness of breath, hemoptysis, SOB with excertion, pleuritic pain, sputum, wheezing, other Cardiovascular: denies: chest pain, palpitations, orthopnea, paroxysmal noc. dyspnea, edema, light headedness, other Gastrointestinal: denies: nausea, vomiting, abdominal pain, diarrhea, constipation, melena, hematochezia, other - Medication Medications: Active Medications Generic Name Dose Route Start Last Admin Trade Name Freq PRN Reason Stop Dose Admin Acetaminophen 650 mg 02/13/19 01:42 02/18/19 21:59 Tylenol PO 650 mg Q4H PRN Administration Headache/Fever/Mild Pain (1-3) Aspirin 81 mg 02/13/19 09:00 02/22/19 10:02 Ecotrin PO 81 mg DAILY AJAY Administration Bisacodyl 10 mg 02/14/19 15:59 02/17/19 09:01 Dulcolax PO 10 mg DAILYPRN PRN Administration Constipation Buspirone HCl 10 mg 02/13/19 01:38 02/21/19 20:25 Buspar PO 10 mg BID PRN Administration Anxiety Calcium Carbonate 1,000 mg 02/19/19 00:30 02/20/19 19:51 Tums PO 1,000 mg DAILYPRN PRN Administration Heartburn or Indigestion Dronedarone 400 mg 02/17/19 17:00 02/22/19 16:14 Multaq PO 400 mg BID-WM AJAY Administration Hydralazine HCl 10 mg 02/14/19 03:38 02/14/19 08:33 Apresoline SLOW IVP 10 mg Q4H PRN Administration SBP Greater Than 180 Hydralazine HCl 50 mg 02/17/19 21:00 02/22/19 15:33 Apresoline PO 50 mg TID AJAY Administration Lidocaine HCl 15 ml 02/20/19 19:30 02/20/19 19:50 Xylocaine 2% Viscous SSW 15 ml BIDPRN PRN Administration Mouth Irritation Lorazepam 0.5 mg 02/15/19 12:19 02/21/19 20:23 Ativan PO 0.5 mg BID PRN Administration Anxiety Nifedipine 90 mg 02/18/19 09:00 02/22/19 10:02 Procardia Xl PO 90 mg DAILY AJAY Administration Ondansetron HCl 4 mg 02/13/19 01:42 02/18/19 21:54 Zofran IVP 4 mg Q6H PRN Administration Nausea/Vomiting Pantoprazole Sodium 40 mg 02/13/19 09:00 02/22/19 10:02 Protonix PO 40 mg DAILY AJAY Administration Rivaroxaban 15 mg 02/13/19 21:00 02/21/19 20:22 Xarelto PO 15 mg HS AJAY Administration Sodium Chloride 10 ml 02/13/19 09:00 02/22/19 10:05 Flush - Normal Saline IVF 10 ml Q12HR AJAY Administration Sodium Chloride 10 ml 02/13/19 00:01 02/16/19 01:19 Flush - Normal Saline IVF 10 ml PRN PRN Administration Saline Flush Tramadol HCl 50 mg 02/19/19 08:56 02/21/19 20:27 Ultram PO 50 mg Q6H PRN Administration Pain - Exam General Appearance: NAD Neck: supple, no JVD Heart: RRR, no gallops Respiratory: CTAB, no rales Gastrointestinal: soft, non-tender, non-distended, normal bowel sounds Extremities: no edema Neurological: no new deficit Psychiatric: normal affect, A&O x 3 Hosp A/P (1) General weakness Code(s): R53.1 - WEAKNESS Status: Acute (2) PHYLLIS (acute kidney injury) Code(s): N17.9 - ACUTE KIDNEY FAILURE, UNSPECIFIED Status: Acute (3) Hyponatremia Code(s): E87.1 - HYPO-OSMOLALITY AND HYPONATREMIA Status: Acute (4) HLD (hyperlipidemia) Code(s): E78.5 - HYPERLIPIDEMIA, UNSPECIFIED Status: Chronic (5) Atrial fibrillation with RVR Code(s): I48.91 - UNSPECIFIED ATRIAL FIBRILLATION Status: Resolved (6) Hypertensive urgency Code(s): I16.0 - HYPERTENSIVE URGENCY Status: Acute (7) CKD (chronic kidney disease) stage 3, GFR 30-59 ml/min Code(s): N18.3 - CHRONIC KIDNEY DISEASE, STAGE 3 (MODERATE) Status: Chronic (8) Constipation Code(s): K59.00 - CONSTIPATION, UNSPECIFIED Status: Acute - Plan plan discussed w/ family Cont Procardia XL/Hydralazine On Multaq with Xarelisaac for Afib Recheck labs in AM Creatinine improving Cont other meds as above AM labs Resume [facility] Treat constipation
[2019-02-22] MEDS: busPIRone HCl 10 MG TAB PO PRN (20:04)
[2019-02-22] MEDS: Rivaroxaban 15 MG TAB PO SCH (20:05)
[2019-02-22] MEDS: Acetaminophen 325 MG TAB PO SCH (20:05)
[2019-02-22] MEDS: Lorazepam 0.5 MG TAB PO PRN (20:05)
[2019-02-22] MEDS: Simethicone Chewable 80 MG TAB PO PRN (20:05)
[2019-02-22] MEDS: Senokot S 8.6-50 MG TAB PO SCH (20:05)
[2019-02-23 05:26] LABS: Anion Gap 10 mmol/L (10-20); BUN (Urea Nitrogen) 18 mg/dL (9.8-20.1); Calc. Creatinine Clearance 32 mL/min (70-130); Calcium 8.8 mg/dL (7.8-10.44); Carbon Dioxide 29 mmol/L (23-31); Chloride 95 mmol/L (98-107); Estimated GFR-MDRD 35; Glucose 98 mg/dL (83-110); Potassium 4.2 mmol/L (3.5-5.1); Sodium 130 mmol/L (136-145)
[2019-02-23] MEDS: Senokot S 8.6-50 MG TAB PO SCH ×2 (08:22→20:11)
[2019-02-23] MEDS: Aspirin 81 mg Enteric Coated Tablet PO SCH (08:22)
[2019-02-23] MEDS: NIFEdipine XL 90 MG TAB PO SCH (08:22)
[2019-02-23] MEDS: Dronedarone HCl 400 MG TAB PO SCH ×2 (08:22→17:49)
[2019-02-23] MEDS: hydrALAZINE 25 MG TAB PO SCH ×3 (08:22→20:07)
[2019-02-23] MEDS: Polyethylene Glycol 3350 17 GM Packet PO SCH (08:23)
[2019-02-23] MEDS: Acetaminophen 325 MG TAB PO SCH ×3 (08:26→20:07)
[2019-02-23] MEDS: Lorazepam 0.5 MG TAB PO PRN ×2 (08:26→20:08)
--- NOTE | 2019-02-23 09:52 | RAD ---
EXAM: XR Abdomen 1 View/KUB PROVIDED CLINICAL HISTORY: Abdominal pain. COMPARISON: None FINDINGS: Visualized lung bases are clear. Calcifications overlie the pelvis likely representing calcified uter ine fibroids. Additional smaller calcifications most compatible with phleboliths also overlie the lower pelvis. Vascular calcifications are seen in the abdominal aorta and involving the iliac arterie s. The bowel gas pattern is nonspecific with mild gaseous distention of the stomach. Degenerative changes are seen in the spine. IMPRESSION: 1. Nonspecific bowel gas pattern. 2. Calcifications overlying the central pelvis probably related to calcified uterine fibroids.
[2019-02-23] MEDS: Bisacodyl 10 MG SUPP PR SCH (09:54)
--- NOTE | 2019-02-23 12:56 | PDOC.HOSPP ---
- Subjective Encounter Date: 02/23/19 Encounter Time: 09:15 Subjective: Patient seen and examined for gen weakness/PHYLLIS. No new complaints. No overnight events - Objective Vital Signs & Weight: Vital Signs (12 hours) Temp Pulse Resp BP BP BP Pulse Ox 02/23/19 11:28 97.6 F 78 20 153/67 H 95 02/23/19 07:10 99.8 F H 79 16 170/72 H 96 02/23/19 04:00 98.3 F 75 18 159/72 H 93 L Weight Admit Weight 160 lb Weight 155 lb 4.8 oz I&O: 02/22/19 02/23/19 02/24/19 06:59 06:59 06:59 Intake Total 930 1980 Output Total 2750 525 Balance -1820 1455 Result Diagrams: 02/21/19 04:51 02/23/19 04:39 EKG Reviewed by me: Yes (Tele SR) Hospitalist ROS - Review of Systems Respiratory: denies: cough, dry, shortness of breath, hemoptysis, SOB with excertion, pleuritic pain, sputum, wheezing, other Cardiovascular: denies: chest pain, palpitations, orthopnea, paroxysmal noc. dyspnea, edema, light headedness, other - Medication Medications: Active Medications Generic Name Dose Route Start Last Admin Trade Name Freq PRN Reason Stop Dose Admin Acetaminophen 650 mg 02/13/19 01:42 02/18/19 21:59 Tylenol PO 650 mg Q4H PRN Administration Headache/Fever/Mild Pain (1-3) Acetaminophen 650 mg 02/22/19 21:00 02/23/19 08:26 Tylenol PO 650 mg TID AJAY Administration Aspirin 81 mg 02/13/19 09:00 02/23/19 08:22 Ecotrin PO 81 mg DAILY AJAY Administration Bisacodyl 10 mg 02/14/19 15:59 02/17/19 09:01 Dulcolax PO 10 mg DAILYPRN PRN Administration Constipation Bisacodyl 10 mg 02/23/19 09:00 02/23/19 09:54 Dulcolax ID 10 mg DAILY JAAY Administration Buspirone HCl 10 mg 02/13/19 01:38 02/22/19 20:04 Buspar PO 10 mg BID PRN Administration Anxiety Calcium Carbonate 1,000 mg 02/19/19 00:30 02/20/19 19:51 Tums PO 1,000 mg DAILYPRN PRN Administration Heartburn or Indigestion Dronedarone 400 mg 02/17/19 17:00 02/23/19 08:22 Multaq PO 400 mg BID-WM AJAY Administration Hydralazine HCl 10 mg 02/14/19 03:38 02/14/19 08:33 Apresoline SLOW IVP 10 mg Q4H PRN Administration SBP Greater Than 180 Hydralazine HCl 50 mg 02/17/19 21:00 02/23/19 08:22 Apresoline PO 50 mg TID AJAY Administration Lidocaine HCl 15 ml 02/20/19 19:30 02/20/19 19:50 Xylocaine 2% Viscous SSW 15 ml BIDPRN PRN Administration Mouth Irritation Lorazepam 0.5 mg 02/15/19 12:19 02/23/19 08:26 Ativan PO 0.5 mg BID PRN Administration Anxiety Nifedipine 90 mg 02/18/19 09:00 02/23/19 08:22 Procardia Xl PO 90 mg DAILY AJAY Administration Ondansetron HCl 4 mg 02/13/19 01:42 02/18/19 21:54 Zofran IVP 4 mg Q6H PRN Administration Nausea/Vomiting Pantoprazole Sodium 40 mg 02/13/19 09:00 02/23/19 08:23 Protonix PO 40 mg DAILY AJAY Administration Polyethylene Glycol 17 gm 02/23/19 09:00 02/23/19 08:23 Miralax PO 17 gm DAILY AJAY Administration Rivaroxaban 15 mg 02/13/19 21:00 02/22/19 20:05 Xarelto PO 15 mg HS AJAY Administration Senna/Docusate Sodium 2 tab 02/22/19 21:00 02/23/19 08:22 Senokot S PO 2 tab BID AJAY Administration Simethicone 80 mg 02/22/19 18:54 02/22/19 20:05 Mylicon Chewable PO 80 mg PCHS PRN Administration Gas Pain Sodium Chloride 10 ml 02/13/19 09:00 02/23/19 08:23 Flush - Normal Saline IVF Not Given Q12HR AJAY Sodium Chloride 10 ml 02/13/19 00:01 02/16/19 01:19 Flush - Normal Saline IVF 10 ml PRN PRN Administration Saline Flush Tramadol HCl 50 mg 02/19/19 08:56 02/21/19 20:27 Ultram PO 50 mg Q6H PRN Administration Pain - Exam General Appearance: NAD Neck: supple, no JVD Heart: RRR, no rubs Respiratory: CTAB, no rales Gastrointestinal: soft, normal bowel sounds Extremities: no edema Hosp A/P (1) General weakness Code(s): R53.1 - WEAKNESS Status: Acute (2) PHYLLIS (acute kidney injury) Code(s): N17.9 - ACUTE KIDNEY FAILURE, UNSPECIFIED Status: Acute (3) Hyponatremia Code(s): E87.1 - HYPO-OSMOLALITY AND HYPONATREMIA Status: Acute (4) HLD (hyperlipidemia) Code(s): E78.5 - HYPERLIPIDEMIA, UNSPECIFIED Status: Chronic (5) Atrial fibrillation with RVR Code(s): I48.91 - UNSPECIFIED ATRIAL FIBRILLATION Status: Resolved (6) Hypertensive urgency Code(s): I16.0 - HYPERTENSIVE URGENCY Status: Acute (7) CKD (chronic kidney disease) stage 3, GFR 30-59 ml/min Code(s): N18.3 - CHRONIC KIDNEY DISEASE, STAGE 3 (MODERATE) Status: Chronic (8) Constipation Code(s): K59.00 - CONSTIPATION, UNSPECIFIED Status: Acute - Plan Cont Procardia XL Cont Hydralazine On Multaq with Xarelto for Afib Renal function improving Cont other meds as above AM labs Resume [facility] at [facility]
--- NOTE | 2019-02-23 14:09 | PRG ---
DATE OF SERVICE: 02/23/2019 SUBJECTIVE: Patient was seen and examined at bedside and overnight events noted. Patient denies any shortness of breath or chest pain or palpitation. No history of nausea or vomiting or diarrhea or fever or chills or cramps. OBJECTIVE: GENERAL: This is a well-built female, in no apparent distress. VITAL SIGNS: Temperature 98.7, heart rate 70, respiratory rate 18, and blood pressure 153/67. HEENT: Atraumatic, normocephalic. Oral mucosa is moist NECK: Supple. CARDIOVASCULAR: S1, S2 heard. Rate and rhythm regular. RESPIRATORY: Clear to auscultation. GASTROINTESTINAL: Abdomen is soft. MUSCULOSKELETAL: No tenderness. No edema. DERMATOLOGIC: No skin rash. NEUROLOGIC: Alert and awake and oriented X3. No focal neurologic deficits. Moving all the extremities. PSYCHIATRIC: Mood and affect normal. LABORATORY DATA: Potassium 4.2, BUN is 18, and creatinine is 1.4. ASSESSMENT AND PLAN: 1. Acute kidney injury, much better. 2. Chronic kidney disease, stage 3, stable. 3. Edema, controlled. 4. Hypertension, stable, but the patient is showing some anxiety this morning. 5. Anemia. 6. Hyponatremia, stable. Overall labs are better, close to baseline. We will continue to follow. Job ID: [id number]
[2019-02-23 16:18] VITALS: BMI 28.4
[2019-02-23] MEDS: Rivaroxaban 15 MG TAB PO SCH (20:07)
[2019-02-23] MEDS: Simethicone Chewable 80 MG TAB PO PRN (20:07)
[2019-02-23] MEDS: busPIRone HCl 10 MG TAB PO PRN (20:08)
[2019-02-24 06:21] LABS: Anion Gap 12 mmol/L (10-20); BUN (Urea Nitrogen) 13 mg/dL (9.8-20.1); Calc. Creatinine Clearance 34 mL/min (70-130); Carbon Dioxide 24 mmol/L (23-31); Chloride 99 mmol/L (98-107); Estimated GFR-MDRD 38; Glucose 95 mg/dL (83-110); Potassium 4.3 mmol/L (3.5-5.1); Sodium 131 mmol/L (136-145)
[2019-02-24] MEDS ORDERED: hydrALAZINE 25 MG TAB PO SCH ×2 (06:30→15:00)
[2019-02-24] MEDS ORDERED: NIFEdipine XL 90 MG TAB PO SCH (06:30)
[2019-02-24] MEDS: Dronedarone HCl 400 MG TAB PO SCH (09:32)
[2019-02-24] MEDS: Acetaminophen 325 MG TAB PO SCH ×2 (09:33→15:28)
[2019-02-24] MEDS: Aspirin 81 mg Enteric Coated Tablet PO SCH (09:33)
[2019-02-24] MEDS: Polyethylene Glycol 3350 17 GM Packet PO SCH (09:33)
[2019-02-24] MEDS: Senokot S 8.6-50 MG TAB PO SCH (09:33)
[2019-02-24] MEDS: Bisacodyl 10 MG SUPP PR SCH (09:33)
[2019-02-24 16:39] VITALS: BP 133/78; TEMP 97.9
--- NOTE | 2019-02-24 18:59 | DIS ---
DATE OF ADMISSION: 02/12/2019 DATE OF DISCHARGE: 02/24/2019 DISCHARGE DISPOSITION: Home. FOLLOWUP: 1. Follow up with primary care physician, Dr. Joshua Mccarthy in 1 week. 2. Follow up with Dr. Leyva and Dr. Farr as scheduled. 3. Home health care was resumed. DISCHARGE MEDICATIONS: 1. Multaq 400 mg b.i.d. 2. Procardia XL 90 mg daily. 3. Xarelto 15 mg at bedtime. 4. Protonix 40 mg daily. 5. Hydralazine 100 mg b.i.d. 6. Clonidine 0.1 b.i.d. 7. Buspirone 10 mg b.i.d. 8. Lipitor 40 mg at bedtime. 9. Aspirin 81 mg daily. 10. Clonidine as needed. INPATIENT CONSULTANTS: 1. Nephrology, Dr. Farr. 2. Cardiology, Dr. Leyva. The patient was seen on the day of discharge. Denies any new complaints. No chest pain, shortness of breath, or palpitations reported. Vital signs on the day of discharge showed temperature 97.9, pulse rate of 74, respirations of 18, blood pressure of 133/78, with O2 saturation 96% on room air. BRIEF HOSPITAL COURSE: The patient is an 88-year-old female with chronic kidney disease; hypertension; hyperlipidemia; and paroxysmal atrial fibrillation, on anticoagulation; presented to the hospital with elevated blood pressure along with headache and shortness of breath. Her blood pressure at home was 212/73. Her heart rate in the emergency room was 48 with sodium of 128. Please refer to the history and physical for further details. The patient was admitted to the hospital with a diagnosis of generalized weakness with hypertensive urgency, bradycardia along with hyponatremia. She was monitored on the telemetry unit. Antihypertensive medications were optimized by Dr. Farr. Her blood pressure on the day of discharge is 133/78. She also was evaluated by Cardiology for atrial fibrillation with rapid ventricular response. Amiodarone has been changed to Multaq. Toprol was discontinued due to significant bradycardia. She was placed on IV Cardizem drip, which was later discontinued. The patient is on anticoagulation for atrial fibrillation. Her sodium improved to 131 from 127. She also developed acute kidney injury. Her creatinine at discharge was 1.31 with a maximum creatinine of 2.18. She has been cleared by consultants for discharge. FINAL DIAGNOSES: 1. Generalized weakness, multifactorial. 2. Hypertensive urgency, resolved. 3. Acute kidney injury on chronic kidney disease, stage 3. 4. Hyponatremia, improved. 5. Basic metabolic profile after 1 week is recommended. Primary care physician advised to follow. 6. Symptomatic bradycardia. Beta-blockers have been discontinued. 7. Atrial fibrillation with rapid ventricular response, converted to sinus rhythm. 8. Constipation, resolved. 9. Anxiety. 10. Physical deconditioning. 11. Macular degeneration. 12. Hyperlipidemia. SIGNIFICANT LABORATORY DATA: Serum osmolality 277. Troponin was negative. Renin was 0.2. Aldosterone was 7.9. Plasma metanephrine and normetanephrine were negative. Renal ultrasound was negative for renal artery stenosis. Chest x-ray was negative for infiltrate. CT scan of the brain on admission was negative for acute CVA. Abdominal x-ray showed nonspecific bowel gas pattern. Total time coordinating the discharge of this patient was 33 minutes. Job ID: [id number]
--- NOTE | 2019-02-24 19:33 | PRG ---
DATE OF SERVICE: 02/24/2019 SUBJECTIVE: Patient was seen and examined at bedside and overnight events noted. Patient denies any shortness of breath or chest pain or palpitation. No history of nausea or vomiting or diarrhea or fever or chills or cramps. OBJECTIVE: GENERAL: This is a well-built female, in no apparent distress. VITAL SIGNS: Temperature 97.9. Heart rate 74. Respiratory rate 18. Blood pressure 133/78. HEENT: Atraumatic, normocephalic. Oral mucosa is moist NECK: Supple. CARDIOVASCULAR: S1, S2 heard. Rate and rhythm regular. RESPIRATORY: Clear to auscultation. GASTROINTESTINAL: Abdomen is soft. MUSCULOSKELETAL: No tenderness. No edema. DERMATOLOGIC: No skin rash. NEUROLOGIC: Alert and awake and oriented X3. No focal neurologic deficits. Moving all the extremities. PSYCHIATRIC: Mood and affect normal. LABORATORY DATA: Potassium 4.3, BUN is 13, and creatinine is 1.3. ASSESSMENT AND PLAN: 1. Chronic kidney disease stage 3, stable. 2. Acute kidney injury, improved. 3. Edema, controlled. 4. Hypertension, stable. 5. Hyponatremia. 6. Anemia. Labs are stable. Job ID: [id number]
--- NOTE | 2019-02-25 06:58 | PQF ---
DAYA ROSARIO MALIK MD [id number] [facility]-287 [id number] CLINICAL DOCUMENTATION CLARIFICATION FORM: POST DISCHARGE Addendum to original discharge summary date: ____ Late entry note date: __ DATE: 02-25-2019 ATTN:Felix Milner Please exercise your independent, professional judgment in responding to the clarification form. Clinical indicators are provided on the bottom of this form for your review Please exercise your independent, professional judgment in responding to the clarification form.Clinical indicators are provided on the bottom of this form for your review. Please check appropriate box(s): [ x ] Hyponatremia please specify etiology, if known [ ] Hyponatremia due to SIADH (Syndrome of Inappropriate Secretion of Antidiuretic Hormone) [ ] Other diagnosis please specify: [ ] Unable to determine Clinical Indicators: ED p1 02/12-Headache ED p3 02/12-BP 178/71 ED p9 02/12-Sodium 128 H&P p1 02/13-Some Dizzness H&P p3 02/13-Hypertensive urgency PN p1 02/17-Stop lisinopril and hydrochlorothiazide Chem lab 02/19-Sodium 127 L Chem lab 02/22-Sodium 129 L Chem lab 02/24-Sodium 131 L Risk factors: ED p1 02/12-88 years old H&P p3 02/13-Hyponatremia H&P p3 02/13-Hypergycemia PN p1 02/17-Acute Kidney Injury due to acute tubular necrosis Treatments: ED p9 02/12-IVF Bolus ED p9 02/12-Na replacement H&P p3 02/13-Monitor Sodium level H&P p3 02/13-Will try to aim for a sodium of 130 H&P p3 02/13-We will note give IVF at this point PN p1 02/20-Monitor renal function (This form is maintained as a part of the permanent medical record) 2014 [employer] All Rights Reserved [email or web address] [not provided] [email or web address]
[2019-02-25] MEDS ORDERED: NIFEdipine XL 90 MG TAB PO SCH (09:00)
== END 2019-02-24 16:25 | disposition home or self-care (01) | DRG 640 ==
LOC: ERS 19:10 → 2NO 23:53 → OBSVTOIN 23:53
PROVIDERS: ADMIT Hospitalist; ATTEND Hospitalist
DX: E87.1 Hypo-osmolality and hyponatremia (principal); N17.0 Acute kidney failure with tubular necrosis; I48.92 Unspecified atrial flutter; R00.1 Bradycardia, unspecified; I16.0 Hypertensive urgency; H35.30 Unspecified macular degeneration; E78.00 Pure hypercholesterolemia, unspecified; D53.9 Nutritional anemia, unspecified; R73.9 Hyperglycemia, unspecified; N18.3 Chronic kidney disease, stage 3 (moderate); I12.9 Hypertensive chronic kidney disease with stage 1 through stage 4 chronic kidney disease, or unspecified chronic kidney disease; D63.1 Anemia in chronic kidney disease; E78.5 Hyperlipidemia, unspecified; I48.0 Paroxysmal atrial fibrillation; K59.00 Constipation, unspecified; F41.9 Anxiety disorder, unspecified; T44.7X5A Adverse effect of beta-adrenoreceptor antagonists, initial encounter; T46.2X5A Adverse effect of other antidysrhythmic drugs, initial encounter; Z90.49 Acquired absence of other specified parts of digestive tract; Z79.899 Other long term (current) drug therapy; Z79.82 Long term (current) use of aspirin; Z79.01 Long term (current) use of anticoagulants; Z88.1 Allergy status to other antibiotic agents; Z88.8 Allergy status to other drugs, medicaments and biological substances
CPT/HCPCS: 36415; 70450; 71045; 74018; 76770; 80048; 80053; 81003; 82088; 83735; 83835; 83930; 84244; 84484; 85025; 93005; 93976; 96361; 96374; 96375; J0360; J2405; J3490

== ENCOUNTER 2019-03-26 13:03 | Inpatient (IN) | payer MEDICARE ==
[~2019-03-26 13:03] MED LIST: ISOVUE-370 76%-LOCM 1 ML ONE
[2019-03-26 13:30] LABS: #Lymphocytes 0.6 thou/uL (1.20-3.40); #Monocytes 0.5 thou/uL (0.11-0.59); #Neutrophils 8.6 thou/uL (1.40-6.50); %Basophils 0.2 % (0.0-1.0); %Eosinophils 0.1 % (0.0-10.0); %Lymphocytes 5.8 % (21.0-51.0); %Monocytes 4.9 % (0.0-10.0); Hemoglobin 10.2 g/dL (12.0-16.0); Mean Corpuscular HGB CONC 32.3 g/dL (32.0-36.0); Mean Corpuscular Hemoglobin 28.3 pg (27.0-31.0); Mean Corpuscular Volume 87.7 fL (78.0-98.0); Mean Platelet Volume 7.1 fL (7.4-10.4); Platelet Count 344 thou/uL (130-400); RBC Distribution Width 14.5 % (11.5-14.5); White Blood Cell (WBC) Count 9.7 thou/uL (4.8-10.8)
[2019-03-26 13:47] LABS: Bacteria/HPF None Seen HPF (None Seen); Bilirubin Negative (Negative); Blood, Urine Negative (Negative); Clarity Clear (Clear); Glucose, Urine (Dipstick) 70 mg/dL (Negative); Leukocyte Negative Leu/uL (Negative); Nitrite Negative (Negative); Protein, Urine (Dipstick) 30 mg/dL (Neg-Trace); RBC/HPF 0-3 HPF (0-3); Squamous Epithelial None Seen HPF (0-3); Urobilinogen Normal mg/dL (Less than 2); WBC/HPF 0-3 HPF (0-3)
[2019-03-26 13:51] LABS: ALT (SGPT) 19 U/L (8-55); AST (SGOT) 22 U/L (5-34); Alkaline Phosphatase 53 U/L (40-110); Anion Gap 14 mmol/L (10-20); BUN (Urea Nitrogen) 14 mg/dL (9.8-20.1); Bilirubin, Total 0.5 mg/dL (0.2-1.2); Calc. Creatinine Clearance 0 mL/min (70-130); Calcium 9.3 mg/dL (7.8-10.44); Carbon Dioxide 26 mmol/L (23-31); Chloride 96 mmol/L (98-107); Estimated GFR-MDRD 51; Globulin 3.2 g/dL (2.4-3.5); Glucose 147 mg/dL (83-110); Potassium 3.6 mmol/L (3.5-5.1); Protein, Total 7.2 g/dL (6.0-8.3); Sodium 132 mmol/L (136-145)
--- NOTE | 2019-03-26 14:43 | RAD ---
RADIOGRAPH CHEST 1 VIEW: DATE: 03/26/2019 TIME: 2:02 PM HISTORY: 88-year-old female with dyspnea COMPARISON: 02/12/2019 FINDINGS: New finding of small region of mildly increased attenuation at the right medial lung base. The rest o f the visualized lung mccallum are grossly clear. Minimal blunting of right lateral costophrenic angle. No pneumothorax. IMPRESSION: Nonspecific finding of mildly increased attenuation at the right medial lung base.
[2019-03-26 15:08] LABS: CKMB 3.2 ng/mL (0-6.6)
[2019-03-26] MEDS ORDERED: cefTRIAXone\\ROCEPHIN 1 GM VIAL ONE (16:18)
[2019-03-26] MEDS ORDERED: Aspirin Chewable 81 MG TAB ONE (16:18)
--- NOTE | 2019-03-26 17:02 | CT ---
EXAM: CTA of the chest HISTORY: Shortness of breath COMPARISON: None TECHNIQUE: Multiple contiguous axial images were obtained a CTA of the chest with contrast per pulmon bruno embolism protocol. 3-D oblique MIP reformats and direct coronal reformats were performed. FINDINGS: HEART: Normal in size without focal cardiac abnormality. PULMONARY ARTERIES: Normal in caliber without filling defects to suggest pulmonary emboli. MEDIASTINUM: No hilar or mediastinal lymphadenopathy. LUNGS: No focal infiltrates or masses. PLEURAL SPACE: Small bilateral pleural effusions with adjacent atelectasis. CHEST WALL SOFT TISSUES: Unremarkable VISUALIZED OSSEOUS STRUCTURES: Degenerative changes in the spine. VISUALIZED SUBDIAPHRAGMATIC STRUCTURES: Bilateral adrenal masses. The left adrenal mass is the larges t measuring 3.3 cm in size. IMPRESSION: 1. No evidence of pulmonary thromboembolism 2. Bilateral adrenal masses. Correlate with urinary catecholamines. A CT of the abdomen per adrenal m ass protocol is recommended for further evaluation. 3. Bilateral pleural effusions.
[2019-03-26] MEDS ORDERED: Acetaminophen 325 MG TAB PO PRN ×2 (17:45→18:45)
[2019-03-26] MEDS ORDERED: Ondansetron PF 4 MG/2 ML Vial IVP PRN (17:45)
[2019-03-26] MEDS ORDERED: Ondansetron ODT 4 MG TAB SL PRN (17:45)
[2019-03-26 18:01] VITALS: BMI 29.7
--- NOTE | 2019-03-26 18:24 | HP ---
PRIMARY CARE PROVIDER: МАРИНА Gupta. CHIEF COMPLAINT: Shortness of breath. HISTORY OF PRESENT ILLNESS: Ms. Craven is a pleasant 88-year-old lady, who was seen at [facility] on March 26, 2019. She was hospitalized at this facility from February 12 to February 24 of this year for generalized weakness, hypertensive urgency, [id number] renal failure stage 3, and hyponatremia. She was also in slow heart rate, therefore, beta blockers were discontinued. She was also in atrial fibrillation with rapid ventricular response, subsequently converted to sinus rhythm. She reports that she was doing well after going home until a few days ago. At that time, she was told by her home health nurse that she was retaining fluid. She reports edema of the lower extremities. She also reports shortness of breath over the last few days. She is unsure if she has orthopnea. She does report dyspnea with exertion. She also does not think that she has paroxysmal nocturnal dyspnea. She reports a dry cough over the last few days. She also reports constipation, for which she took senna yesterday and today. She denies any abdominal pain. She reports feeling hot and cold, but denies that she had any fevers. REVIEW OF SYSTEMS: All systems were reviewed and found to be negative except for the pertinent positives mentioned above. PAST MEDICAL HISTORY: Atrial fibrillation, macular degeneration, hypertension, and dyslipidemia. PAST SURGICAL HISTORY: Appendectomy. SOCIAL HISTORY: The patient denies tobacco use, alcohol use, or recreational drug use. CODE STATUS: She was full code during her previous admission. On discussion with her today in the emergency room, she wishes to be DNAR. FAMILY HISTORY: Her father of myocardial infarction. ALLERGIES: AMLODIPINE, ATORVASTATIN, BACITRACIN, CIPROFLOXACIN, CLINDAMYCIN, LACTOSE, METRONIDAZOLE, NEOMYCIN, POLYMYXIN B, AND SERTRALINE. CURRENT MEDICATIONS: 1. Multaq 400 mg two times a day. 2. Procardia XL 90 mg daily. 3. Rivaroxaban 15 mg at bedtime. 4. Protonix 40 mg daily. 5. Hydralazine 100 mg two times a day. 6. Clonidine 0.1 mg two times a day. 7. Buspirone 10 mg two times a day. 8. Lipitor 40 mg at bedtime. 9. Aspirin 81 mg daily. 10. Clonidine p.r.n. PHYSICAL EXAMINATION: GENERAL: On examination, Ms. Craven is awake and alert, not in acute distress. VITAL SIGNS: Blood pressure 133/50, pulse rate 81, respiratory rate 27, and oxygen saturation 100% on 3 L of oxygen. She reportedly had room-air oxygen saturations of 82% in the emergency room. She is afebrile. EYES: No scleral icterus, no conjunctival pallor. ENT: Moist mucosal membranes. No oropharyngeal erythema or exudates. NECK: Supple, nontender, and trachea is midline. RESPIRATORY: Accessory muscles of breathing are not active. Chest wall movements are symmetric bilaterally. LUNG: Examination reveals bibasilar crackles. CARDIOVASCULAR: S1 and S2 are heard, regular. Peripheral pulses palpable. No carotid bruit. No pericardial rub. ABDOMEN: Soft, nontender, and bowel sounds are heard. NEUROLOGIC: Cranial nerves II through XII are intact. MUSCULOSKELETAL: Power is 5/5 in all 4 extremities. SKIN: The patient has bilateral lower extremity edema. LYMPHATIC: No cervical lymphadenopathy. PSYCHIATRIC: Normal mood, normal affect, the patient is oriented to person, place, and time. LABORATORY DATA: Ms. Craven's labs and investigations were reviewed. I reviewed her electrocardiogram, which shows normal sinus rhythm, no ST changes to suggest an acute coronary syndrome. I also reviewed her chest x-ray, which did not show any pulmonary infiltrates. She had a small region of increased attenuation at right medial lung base. CT angiogram of the chest did not show any evidence for pulmonary thromboembolism. She had small bilateral pleural effusions. She also has bilateral adrenal masses. She has normal white count, normocytic anemia with hemoglobin 10.2, last known hemoglobin was 11.9 on February 21, 2019; normal platelet count, decreased sodium of 132, normal potassium, normal LFTs, indeterminate troponin-I of 0.042, elevated BNP of 174.8, and elevated lactic acid of 2.7. Urinalysis is negative for nitrite and leukocyte esterase. ASSESSMENT AND PLAN: Ms. Craven is a pleasant 88-year-old lady, who was seen at [facility] on March 26, 2019. Her problem list includes: 1. Shortness of breath: Ms. Craven is presenting with shortness of breath. Her presentation appears to be most likely secondary to congestive heart failure exacerbation. BNP is mildly elevated at 174.8. She will be admitted to the hospital for further management. We will start her on diuretics. She has been started on antibiotics because of concern regarding pneumonia. However, she does have a normal white count. She is afebrile. I will hold off on antibiotics for now. 2. Hyponatremia: Mild, likely asymptomatic. 3. History of atrial fibrillation: The patient is currently in sinus rhythm. We will continue her rivaroxaban. Beta-blockers to be avoided. Continue Procardia XL and Multaq. 4. Dyslipidemia: Continue atorvastatin. 5. Hypertension: Monitor vital signs and titrate antihypertensives as needed. Many thanks for allowing me to participate in your patient's care. Please feel free to contact me with any questions or concerns. LEVEL OF RISK: High. LEVEL OF COMPLEXITY: High. Job ID: [id number]
[2019-03-26] MEDS ORDERED: Bisacodyl 5 MG TAB PO PRN (18:45)
[2019-03-26] MEDS ORDERED: Furosemide 40 MG/4 ML VIAL SLOW IVP SCH (18:45)
[2019-03-26] MEDS ORDERED: cloNIDine 0.1 MG TAB PO PRN (18:48)
[2019-03-26 18:51] LABS: Troponin I 0.065 ng/mL (< 0.028)
[2019-03-26 20:15] LABS: Lactic Acid 1.4 mmol/L (0.5-2.2)
[2019-03-26] MEDS: busPIRone HCl 10 MG TAB PO SCH (21:27)
[2019-03-26] MEDS: hydrALAZINE 25 MG TAB PO SCH (21:27)
[2019-03-26] MEDS: Rivaroxaban 15 MG TAB PO SCH (21:28)
[2019-03-26 21:50] LABS: Troponin I 0.063 ng/mL (< 0.028)
[2019-03-27] MEDS: Furosemide 40 MG/4 ML VIAL SLOW IVP SCH ×2 (05:42→14:59)
[2019-03-27] MEDS: Dronedarone HCl 400 MG TAB PO SCH ×2 (08:32→16:35)
[2019-03-27] MEDS: Atorvastatin Calcium 40 MG TAB PO SCH (08:33)
[2019-03-27] MEDS: Aspirin 81 mg Enteric Coated Tablet PO SCH (08:33)
[2019-03-27] MEDS: busPIRone HCl 10 MG TAB PO SCH ×2 (08:33→20:49)
[2019-03-27] MEDS: hydrALAZINE 25 MG TAB PO SCH ×2 (08:33→20:49)
[2019-03-27] MEDS: NIFEdipine XL 90 MG TAB PO SCH (08:33)
[2019-03-27 09:03] LABS: #Basophils 0.1 thou/uL (0.0-0.2); #Eosinphils 0.1 thou/uL (0.0-0.7); #Lymphocytes 0.9 thou/uL (1.20-3.40); #Monocytes 0.8 thou/uL (0.11-0.59); #Neutrophils 5.3 thou/uL (1.40-6.50); %Basophils 0.7 % (0.0-1.0); %Eosinophils 1.4 % (0.0-10.0); %Lymphocytes 12.3 % (21.0-51.0); %Neutrophils 74.6 % (42.0-75.0); Mean Corpuscular HGB CONC 32.9 g/dL (32.0-36.0); Mean Corpuscular Hemoglobin 28.7 pg (27.0-31.0); Mean Corpuscular Volume 87.3 fL (78.0-98.0); Mean Platelet Volume 7.8 fL (7.4-10.4); Platelet Count 345 thou/uL (130-400); RBC Distribution Width 14.3 % (11.5-14.5); Red Blood Cell (RBC) Count 3.49 mill/uL (4.20-5.40); White Blood Cell (WBC) Count 7.1 thou/uL (4.8-10.8)
[2019-03-27 09:14] LABS: Anion Gap 19 mmol/L (10-20); BUN (Urea Nitrogen) 14 mg/dL (9.8-20.1); Calc. Creatinine Clearance 35 mL/min (70-130); Calcium 9.1 mg/dL (7.8-10.44); Carbon Dioxide 26 mmol/L (23-31); Chloride 96 mmol/L (98-107); Estimated GFR-MDRD 41; Glucose 108 mg/dL (83-110); Potassium 3.3 mmol/L (3.5-5.1); Sodium 138 mmol/L (136-145)
[2019-03-27] MEDS ORDERED: Potassium Chloride 20 MEQ TAB PO SCH (09:45)
--- NOTE | 2019-03-27 18:03 | PDOC.HOSPP ---
- Subjective Encounter Date: 03/27/19 Encounter Time: 18:02 Subjective: Pt seen for followup re: CHF exacerbation. Feels better. - Objective Vital Signs & Weight: Vital Signs (12 hours) Temp Pulse Resp BP BP Pulse Ox 03/27/19 15:06 98.6 F 96 26 H 127/58 L 96 03/27/19 12:13 97.3 F L 79 17 118/53 L 96 03/27/19 08:33 96 03/27/19 07:54 98.0 F 71 20 165/72 H 96 Weight Weight 152 lb I&O: 03/26/19 03/27/19 03/28/19 06:59 06:59 06:59 Intake Total 360 Output Total 2000 Balance -1640 Result Diagrams: 03/27/19 08:43 03/27/19 08:43 Additional Labs: labs and MARs reviewed by me EKG Reviewed by me: Yes (Tele: NSR) Hospitalist ROS - Review of Systems Respiratory: reports: SOB with excertion Cardiovascular: reports: edema. denies: chest pain, palpitations, orthopnea, paroxysmal noc. dyspnea, light headedness Gastrointestinal: denies: nausea, vomiting, abdominal pain, diarrhea, constipation, melena, hematochezia - Medication Medications: Active Medications Generic Name Dose Route Start Last Admin Trade Name Freq PRN Reason Stop Dose Admin Aspirin 81 mg 03/27/19 09:00 03/27/19 08:33 Ecotrin PO 81 mg DAILY AJAY Administration Atorvastatin Calcium 40 mg 03/27/19 09:00 03/27/19 08:33 Lipitor PO 40 mg DAILY AJAY Administration Bisacodyl 10 mg 03/26/19 18:45 03/26/19 21:28 Dulcolax PO 10 mg DAILYPRN PRN Administration Constipation Buspirone HCl 10 mg 03/26/19 21:00 03/27/19 08:33 Buspar PO 10 mg BID AJAY Administration Dronedarone 400 mg 03/27/19 08:00 03/27/19 16:35 Multaq PO 400 mg BID-WM AJAY Administration Furosemide 40 mg 03/27/19 06:00 03/27/19 14:59 Lasix SLOW IVP 40 mg 0600,1400 AJAY Administration Hydralazine HCl 100 mg 03/26/19 21:00 03/27/19 08:33 Apresoline PO 100 mg BID AJAY Administration Nifedipine 90 mg 03/27/19 09:00 03/27/19 08:33 Procardia Xl PO 90 mg DAILY AJAY Administration Pantoprazole Sodium 40 mg 03/27/19 09:00 03/27/19 08:33 Protonix PO 40 mg DAILY AJAY Administration Rivaroxaban 15 mg 03/26/19 21:00 03/26/19 21:28 Xarelto PO 15 mg HS AJAY Administration Sodium Chloride 10 ml 03/26/19 17:45 03/27/19 05:42 Flush - Normal Saline IVF 10 ml PRN PRN Administration Saline Flush - Exam General Appearance: NAD Eye: anicteric sclera ENT: moist mucosa Neck: supple, JVD Heart: RRR, no rubs Respiratory - other findings: Bibasal crackles Gastrointestinal: soft, non-tender Extremities: 1+ LE edema Psychiatric: normal affect, normal behavior Hosp A/P (1) Acute on chronic diastolic congestive heart failure, NYHA class 3 Code(s): I50.33 - ACUTE ON CHRONIC DIASTOLIC (CONGESTIVE) HEART FAILURE Status : Acute (2) Hypokalemia Code(s): E87.6 - HYPOKALEMIA Status: Acute (3) Dyslipidemia Code(s): E78.5 - HYPERLIPIDEMIA, UNSPECIFIED Status: Chronic (4) HTN (hypertension) Code(s): I10 - ESSENTIAL (PRIMARY) HYPERTENSION Status: Chronic (5) Hyponatremia Code(s): E87.1 - HYPO-OSMOLALITY AND HYPONATREMIA Status: Resolved - Plan PT/OT, out of bed/ambulate Replace potassium. Switch to oral furosemide. Monitor creatinine, lytes. Pt clinically improving. Continue rivaroxaban for a. fib.
[2019-03-27] MEDS: Rivaroxaban 15 MG TAB PO SCH (20:49)
[2019-03-28 05:34] LABS: Anion Gap 17 mmol/L (10-20); BUN (Urea Nitrogen) 19 mg/dL (9.8-20.1); Calc. Creatinine Clearance 27 mL/min (70-130); Calcium 8.4 mg/dL (7.8-10.44); Carbon Dioxide 27 mmol/L (23-31); Chloride 96 mmol/L (98-107); Estimated GFR-MDRD 30; Glucose 104 mg/dL (83-110); Potassium 3.4 mmol/L (3.5-5.1); Sodium 137 mmol/L (136-145)
[2019-03-28 05:39] LABS: Hemoglobin 9.6 g/dL (12.0-16.0); Hypochromia SLIGHT = 6-15 cells (100X) (0-5/hpf); Lymphocytes 23 % (21-51); MDiff Complete? YES; Mean Corpuscular HGB CONC 32.8 g/dL (32.0-36.0); Mean Corpuscular Hemoglobin 28.9 pg (27.0-31.0); Mean Corpuscular Volume 87.9 fL (78.0-98.0); Mean Platelet Volume 7.6 fL (7.4-10.4); Neutrophil 77 % (42-75); Platelet Count 321 thou/uL (130-400); Platelet Morphology Comment Appears Adequate; RBC Distribution Width 14.4 % (11.5-14.5); Red Blood Cell (RBC) Count 3.33 mill/uL (4.20-5.40); White Blood Cell (WBC) Count 6.2 thou/uL (4.8-10.8)
[2019-03-28] MEDS: Furosemide 40 MG/4 ML VIAL SLOW IVP SCH ×2 (05:52→14:19)
[2019-03-28] MEDS ORDERED: Potassium Chloride 20 MEQ TAB PO SCH (08:00)
[2019-03-28] MEDS: Dronedarone HCl 400 MG TAB PO SCH ×2 (08:52→20:11)
[2019-03-28] MEDS: Aspirin 81 mg Enteric Coated Tablet PO SCH (08:52)
[2019-03-28] MEDS: Atorvastatin Calcium 40 MG TAB PO SCH (08:52)
[2019-03-28] MEDS: hydrALAZINE 25 MG TAB PO SCH ×2 (08:52→20:12)
[2019-03-28] MEDS: Furosemide 40 MG TAB PO SCH ×2 (08:52→14:15)
[2019-03-28] MEDS: busPIRone HCl 10 MG TAB PO SCH ×2 (08:52→20:11)
[2019-03-28] MEDS: Potassium Chloride 10 MEQ TAB PO SCH (08:53)
[2019-03-28] MEDS: NIFEdipine XL 90 MG TAB PO SCH (08:53)
--- NOTE | 2019-03-28 18:10 | PDOC.HOSPP ---
- Subjective Encounter Date: 03/28/19 Encounter Time: 08:20 Subjective: Pt seen for followup re: CHF exacerbation. Feels slightly better. - Objective Vital Signs & Weight: Vital Signs (12 hours) Temp Pulse Pulse Pulse Resp BP BP 03/28/19 15:58 98.1 F 77 18 03/28/19 11:49 98.7 F 79 18 03/28/19 11:00 79 80 110/53 L 135/58 L 03/28/19 08:53 72 03/28/19 08:52 72 03/28/19 08:00 03/28/19 07:39 98.1 F 72 18 BP Pulse Ox 03/28/19 15:58 127/58 L 94 L 03/28/19 11:49 135/58 L 96 03/28/19 11:00 03/28/19 08:53 03/28/19 08:52 03/28/19 08:00 96 03/28/19 07:39 139/61 94 L Weight Weight 150 lb 2 oz I&O: 03/27/19 03/28/19 03/29/19 06:59 06:59 06:59 Intake Total 360 1454 242 Output Total 1999 1600 Balance -1640 -146 242 Result Diagrams: 03/28/19 04:37 03/28/19 04:37 Additional Labs: Labs and MARs reviewed by me EKG Reviewed by me: Yes (Tele: NSR) Hospitalist ROS - Review of Systems Cardiovascular: denies: chest pain, palpitations, orthopnea, paroxysmal noc. dyspnea, edema, light headedness Gastrointestinal: denies: nausea, vomiting, abdominal pain, diarrhea, constipation, melena, hematochezia - Medication Medications: Active Medications Generic Name Dose Route Start Last Admin Trade Name Freq PRN Reason Stop Dose Admin Acetaminophen 650 mg 03/26/19 18:45 03/28/19 14:15 Tylenol PO 650 mg Q4H PRN Administration Headache/Fever/Mild Pain (1-3) Aspirin 81 mg 03/27/19 09:00 03/28/19 08:52 Ecotrin PO 81 mg DAILY AJAY Administration Atorvastatin Calcium 40 mg 03/27/19 09:00 03/28/19 08:52 Lipitor PO 40 mg DAILY AJAY Administration Bisacodyl 10 mg 03/26/19 18:45 03/26/19 21:28 Dulcolax PO 10 mg DAILYPRN PRN Administration Constipation Buspirone HCl 10 mg 03/26/19 21:00 03/28/19 08:52 Buspar PO 10 mg BID AJAY Administration Dronedarone 400 mg 03/27/19 08:00 03/28/19 08:52 Multaq PO 400 mg BID-WM AJAY Administration Furosemide 40 mg 03/28/19 09:00 03/28/19 14:15 Lasix PO 40 mg 0900,1400 AJAY Administration Hydralazine HCl 100 mg 03/26/19 21:00 03/28/19 08:52 Apresoline PO 100 mg BID AJAY Administration Nifedipine 90 mg 03/27/19 09:00 03/28/19 08:53 Procardia Xl PO 90 mg DAILY AJAY Administration Pantoprazole Sodium 40 mg 03/27/19 09:00 03/28/19 08:53 Protonix PO 40 mg DAILY AJAY Administration Potassium Chloride 10 meq 03/28/19 08:00 03/28/19 08:53 Klor-Con 10 PO 10 meq QAM-WM AJAY Administration Rivaroxaban 15 mg 03/26/19 21:00 03/27/19 20:49 Xarelto PO 15 mg HS AJAY Administration Sodium Chloride 10 ml 03/26/19 17:45 03/28/19 05:52 Flush - Normal Saline IVF 10 ml PRN PRN Administration Saline Flush - Exam General Appearance: NAD Eye: anicteric sclera ENT: moist mucosa Neck: supple Heart: RRR Respiratory: CTAB Gastrointestinal: soft, non-tender Skin: no rashes Musculoskeletal: normal tone Psychiatric: normal affect, normal behavior Hosp A/P (1) Acute on chronic diastolic congestive heart failure, NYHA class 3 Code(s): I50.33 - ACUTE ON CHRONIC DIASTOLIC (CONGESTIVE) HEART FAILURE Status : Acute (2) Hypokalemia Code(s): E87.6 - HYPOKALEMIA Status: Acute (3) Dyslipidemia Code(s): E78.5 - HYPERLIPIDEMIA, UNSPECIFIED Status: Chronic (4) HTN (hypertension) Code(s): I10 - ESSENTIAL (PRIMARY) HYPERTENSION Status: Chronic (5) Hyponatremia Code(s): E87.1 - HYPO-OSMOLALITY AND HYPONATREMIA Status: Resolved - Plan out of bed/ambulate Replace potassium. Pt is on oral furosemide. Creatinine worse today, recheck. Pt clinically improving. Continue rivaroxaban.
[2019-03-28] MEDS: Rivaroxaban 15 MG TAB PO SCH (20:12)
[2019-03-29 05:48] LABS: #Basophils 0.1 thou/uL (0.0-0.2); #Eosinphils 0.1 thou/uL (0.0-0.7); #Lymphocytes 1.1 thou/uL (1.20-3.40); #Monocytes 0.8 thou/uL (0.11-0.59); #Neutrophils 4.1 thou/uL (1.40-6.50); %Basophils 1.2 % (0.0-1.0); %Eosinophils 2.3 % (0.0-10.0); %Lymphocytes 18.1 % (21.0-51.0); %Monocytes 13.3 % (0.0-10.0); %Neutrophils 65.1 % (42.0-75.0); Hemoglobin 10.1 g/dL (12.0-16.0); Mean Corpuscular HGB CONC 32.6 g/dL (32.0-36.0); Mean Corpuscular Hemoglobin 28.6 pg (27.0-31.0); Mean Corpuscular Volume 87.7 fL (78.0-98.0); Mean Platelet Volume 7.5 fL (7.4-10.4); Platelet Count 319 thou/uL (130-400); RBC Distribution Width 14.3 % (11.5-14.5); Red Blood Cell (RBC) Count 3.54 mill/uL (4.20-5.40); White Blood Cell (WBC) Count 6.3 thou/uL (4.8-10.8)
[2019-03-29 06:06] LABS: Anion Gap 15 mmol/L (10-20); BUN (Urea Nitrogen) 17 mg/dL (9.8-20.1); Calc. Creatinine Clearance 28 mL/min (70-130); Calcium 8.6 mg/dL (7.8-10.44); Carbon Dioxide 29 mmol/L (23-31); Chloride 96 mmol/L (98-107); Estimated GFR-MDRD 34; Glucose 99 mg/dL (83-110); Potassium 3.6 mmol/L (3.5-5.1); Sodium 136 mmol/L (136-145)
[2019-03-29] MEDS: Atorvastatin Calcium 40 MG TAB PO SCH (09:35)
[2019-03-29] MEDS: Dronedarone HCl 400 MG TAB PO SCH (09:35)
[2019-03-29] MEDS: Potassium Chloride 10 MEQ TAB PO SCH (09:35)
[2019-03-29] MEDS: Aspirin 81 mg Enteric Coated Tablet PO SCH (09:35)
[2019-03-29] MEDS: busPIRone HCl 10 MG TAB PO SCH (09:36)
[2019-03-29] MEDS: hydrALAZINE 25 MG TAB PO SCH (09:36)
[2019-03-29] MEDS: NIFEdipine XL 90 MG TAB PO SCH (09:36)
[2019-03-29] MEDS: Furosemide 40 MG TAB PO SCH ×2 (09:36→14:05)
[2019-03-29 12:18] VITALS: TEMP 98.5
[2019-03-29 14:04] VITALS: BP 143/64
--- NOTE | 2019-03-29 22:32 | DIS ---
DATE OF ADMISSION: 03/26/2019 DATE OF DISCHARGE: 03/29/2019 PRIMARY CARE PROVIDER: CLEMENCIA Gupta-Francisca DISCHARGE DIAGNOSES: 1. Acute on chronic diastolic congestive heart failure, [place] Heart Association class III. 2. Hypokalemia. 3. Acute kidney injury. 4. Hyponatremia. CONDITION OF PATIENT ON THE DAY OF DISCHARGE: Stable. I assessed Ms. Craven on the day of discharge. She denies any chest pain or shortness of breath. Vital signs are stable. S1 and S2 are heard, regular. Lungs are clear to auscultation bilaterally. DISCHARGE MEDICATIONS: She has been started on furosemide 40 mg daily. Otherwise, no change was made to her pre-admission home medications as dictated on my history and physical note dated March 26, 2019. FOLLOWUP APPOINTMENTS: The patient is advised to follow up with primary care provider in 3 days time and with director education Dr. Leyva in 2 to 3 weeks time. HOSPITAL COURSE: Ms. Craven is a pleasant 88-year-old lady, who was admitted to [facility] on March 26, 2019, for congestive heart failure exacerbation. Please refer to my history and physical note dated March 26, 2019, for further details. She was treated with intravenous diuretics. She improved clinically in terms of heart failure. However, she did have acute renal injury secondary to diuretics. The creatinine started improving after switching her to oral diuretics. She was advised to have her renal function and electrolytes checked in 5-7 days time through her primary care provider's office. On the day of discharge, she has white count 6300, hemoglobin 10.1, platelet count 319,000, sodium 136, potassium 3.6, and creatinine 1.45. 2D echocardiogram done during this hospitalization showed left ventricular ejection fraction of 60% to 65%, E/A flow reversal suggestive of diastolic dysfunction, mild mitral regurgitation, mitral annular calcification, and mild tricuspid regurgitation. Many thanks for allowing me to participate in your patient's care. Please feel free to contact me with any questions or concerns. DISCHARGE DESTINATION: Home. TIME SPENT: Total amount of time spent coordinating this discharge: 32 minutes. Job ID: [id number]
--- NOTE | 2019-03-31 09:46 | PQF ---
DAYA ROSARIO DAVID [id number] CLINICAL DOCUMENTATION CLARIFICATION FORM: POST DISCHARGE Addendum to original discharge summary date: ____ Late entry note date: __ DATE: 03/31/2019 ATTN:JEYSON MONACO Please exercise your independent, professional judgment in responding to the clarification form. Clinical indicators are provided on the bottom of this form for your review Please check appropriate box(s) to clarify if the following diagnosis has been ruled in or ruled out: Chronic renal failure stage 3 [ ] Ruled in diagnosis [ ] Continue to treat [ ] Resolved [ ] Ruled out diagnosis [ ] Cannot rule out diagnosis [ X ] Other diagnosis __Acute on Chronic stage 3 renal failure [ ] Unable to determine For continuity of documentation, please document condition throughout progress notes and discharge summary. Thank You. CLINICAL INDICATORS - SIGNS / SYMPTOMS / LABS She was hospitalized at this facility from february 12 to february 24 of this year for generalized weakness-Dcounented in H&P on 03/26 by Benny Lewis Acute on chronic renal failure stage 3-Dcounented in H&P on 03/26 by Benny Lewis GFR-41,30,34-Dcounented in laboratory Creatinine-1.23,1.60-Dcounented in laboratory Acute on chronic diastolic congestive heart failure-Documented in DS on 03/29 by Benny Lewis Acute kidney injury-Documented in DS on 03/29 by Benny Lewis Hyponatremia,hypokalemia-Documented in DS on 03/29 by Benny Lewis [employer] Acute on chronic diastolic congestive heart failure-Documented in DS on 03/29 by Benny Lewis Acute kidney injury-Documented in DS on 03/29 by Benny Lewis [employer] Facilities Manager [employer] Win[employer] Viewer(This form is maintained as a part of the permanent medical record) 2014 [employer]. All Rights Reserved [email or web address] [not provided] MTDD
== END 2019-03-29 14:20 | disposition home health service (06) | DRG 291 ==
LOC: ERS 13:03 → 2NO 17:46
PROVIDERS: ADMIT Internal Medicine; ATTEND Internal Medicine
DX: I13.0 Hypertensive heart and chronic kidney disease with heart failure and stage 1 through stage 4 chronic kidney disease, or unspecified chronic kidney disease (principal); I50.33 Acute on chronic diastolic (congestive) heart failure; N17.9 Acute kidney failure, unspecified; E87.1 Hypo-osmolality and hyponatremia; I11.0 Hypertensive heart disease with heart failure; E87.6 Hypokalemia; E78.5 Hyperlipidemia, unspecified; Z88.1 Allergy status to other antibiotic agents; Z88.8 Allergy status to other drugs, medicaments and biological substances; I48.91 Unspecified atrial fibrillation; I08.1 Rheumatic disorders of both mitral and tricuspid valves; N18.3 Chronic kidney disease, stage 3 (moderate)
CPT/HCPCS: 36415; 36416; 51701; 71045; 71275; 80048; 80053; 81003; 81015; 82553; 83605; 83880; 84484; 85025; 87040; 87149; 93005; 93306; 93798; 96365; A4353; J0696; J1940; Q9966

== ENCOUNTER 2020-07-17 12:10 | Inpatient (IN) | payer MEDICARE ==
[2020-07-17 13:01] LABS: #Eosinphils 0.1 thou/uL (0.0-0.7); #Lymphocytes 1.2 thou/uL (1.20-3.40); #Monocytes 0.5 thou/uL (0.11-0.59); #Neutrophils 4.6 thou/uL (1.40-6.50); %Basophils 0.7 % (0.0-1.0); %Eosinophils 1.4 % (0.0-10.0); %Lymphocytes 18.8 % (21.0-51.0); %Monocytes 7.3 % (0.0-10.0); %Neutrophils 71.8 % (42.0-75.0); Hemoglobin 10.1 g/dL (12.0-16.0); Mean Corpuscular HGB CONC 32.1 g/dL (32.0-36.0); Mean Corpuscular Hemoglobin 27.4 pg (27.0-31.0); Mean Corpuscular Volume 85.4 fL (78.0-98.0); Mean Platelet Volume 8.5 fL (7.4-10.4); Platelet Count 252 thou/uL (130-400); RBC Distribution Width 13.9 % (11.5-14.5); White Blood Cell (WBC) Count 6.5 thou/uL (4.8-10.8)
--- NOTE | 2020-07-17 13:26 | RAD ---
XR Chest 1 View Portable History: Altered mental status Comparison: Radiograph March 2019 Findings: Lungs are clear. No pneumothorax or effusion. Cardiac silhouette and mediastinal contours a re within normal limits. No acute osseous abnormality. Impression: No acute intrathoracic abnormality.
[2020-07-17 13:40] LABS: ALT (SGPT) 12 U/L (8-55); AST (SGOT) 21 U/L (5-34); Albumin 3.9 g/dL (3.4-4.8); Alkaline Phosphatase 67 U/L (40-110); Anion Gap 14 mmol/L (10-20); BUN (Urea Nitrogen) 33 mg/dL (9.8-20.1); Bilirubin, Total 0.4 mg/dL (0.2-1.2); Calc. Creatinine Clearance 0 mL/min (70-130); Carbon Dioxide 23 mmol/L (23-31); Chloride 96 mmol/L (98-107); Globulin 3.6 g/dL (2.4-3.5); Glucose 107 mg/dL (83-110); Potassium 3.5 mmol/L (3.5-5.1); Protein, Total 7.5 g/dL (5.8-8.1); Sodium 129 mmol/L (136-145)
[2020-07-17] MEDS ORDERED: hydrALAZINE 20 MG/ML VIAL ONE (14:00)
[2020-07-17 14:08] LABS: Bacteria/HPF 4+ HPF (None Seen); Bilirubin Negative (Negative); Blood, Urine 2+ (Negative); Clarity Turbid (Clear); Glucose, Urine (Dipstick) Normal (Negative); Ketone, Urine Negative (Negative); Leukocyte 500 Leu/uL (Negative); Nitrite Negative (Negative); Protein, Urine (Dipstick) 70 mg/dL (Neg-Trace); Specific Gravity, Urine 1.008 (1.002-1.036); Squamous Epithelial None Seen HPF (0-3); Transitional Epithelial 0-3 HPF (None Seen); Urobilinogen Normal mg/dL (Less than 2); pH, Urine 5.5 (5.0-9.0)
--- NOTE | 2020-07-17 14:35 | CT ---
CT HEAD WITHOUT CONTRAST: 07/17/20 INDICATIONS: Mental status change. COMPARISON: Head CT of 02/12/19. FINDINGS: Cortical atrophy. Ventricles have normal size and position. Moderately severe chronic ischemic white matter changes appear stable. 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 The re is no evidence of mass, hemorrhage, or acute cortical infarct. Acute or subacute lacunar infarcts in the deep white matter may be obscured by the chronic ischemic change. If there are new neurologic deficits, recommend MRI. IMPRESSION: No evidence of acute process by CT. POS: AGW
[2020-07-17] MEDS ORDERED: cefTRIAXone\\ROCEPHIN 1 GM VIAL ONE (15:41)
[2020-07-17] MEDS ORDERED: Lorazepam 2 MG/ML VIAL ONE ×2 (15:52→17:03)
--- NOTE | 2020-07-17 16:34 | PDOC.FPRHP ---
- History of Present Illness Chief Complaint: AMS/Panic Attack History of Present Illness: Patient is a 89 yo female who presents to ED with complaint of a "panic attack". She has felt very worried lately. She says she feels like she hasn't slept in a few days. Then this morning when she was going to the bathroom she felt shaky and "uncoordinated" on her feet and thought she might fall but she did not. In general she has felt fatigue and weakness for several days, unsure length of time. Denies being in any pain, dysuria, burning, nausea, vomiting, fever, chills. She overall is very confused during interview and has to ask several times where she is at and why she is being asked questions. At times thinks she is at home. Spoke to pt's son, who is SHAILESH, and he states that she is A&Ox3 at baseline and able to complete ADL's. For the past 2-3 days she has become more confused and has had decreased energy. She has not complained of pain and has been eating and drinking as normal. He says that about 6 months ago she stopped taking all of her home meds because "they made her feel bad" and that after stopping them "she felt much better". She is between PCPs at this time. She lives at home with her son in [place], [place]. Says she was working on her income taxes the last few days. ED Course: ativan, 1L NS, rocephin, hydralazine - Allergies/Adverse Reactions Allergies Allergy/AdvReac Type Severity Reaction Status Date / Time bacitracin Allergy Verified 03/26/19 17:59 [From Neosporin ([id number])] ciprofloxacin [From Cipro] Allergy Verified 01/31/18 15:05 lactose Allergy Verified 03/26/19 17:59 neomycin Allergy Verified 03/26/19 17:59 [From Neosporin ([id number])] polymyxin B Allergy Verified 03/26/19 17:59 [From Neosporin ([id number])] - Home Medications Medication Instructions Recorded Confirmed Type Aspirin [Ecotrin Low Strength] 81 mg PO DAILY 01/31/18 03/26/19 History Atorvastatin Calcium 40 mg PO DAILY 02/13/19 03/26/19 History Pantoprazole Sodium 40 mg PO DAILY 02/13/19 03/26/19 History Rivaroxaban [Xarelto] 15 mg PO HS 02/13/19 03/26/19 History busPIRone HCl [Buspirone HCl] 10 mg PO BID 02/13/19 03/26/19 History cloNIDine [Catapres] 0.1 mg PO Q8HR PRN 02/13/19 03/26/19 History hydrALAZINE HCl 100 mg PO BID 02/13/19 03/26/19 History NIFEdipine [Procardia XL] 90 mg PO DAILY #30 tab 02/24/19 03/26/19 Rx Dronedarone HCl [Multaq] 400 mg PO BID-WM #60 tab 03/29/19 Rx Furosemide 40 mg PO DAILY #30 tablet 03/29/19 Rx Comments: Not taking any current medications. Supposed to be on Multaq 400 mg BID, Procardia XL 90 mg daily, Rivaroxaban 15 mg HS, Protonix 40 mg daily, Hydralazine 100 mg BID, Clonidine 0.1 mg BID, Buspirone 10 mg BID, Lipitor 40 mg HS, ASA 81 mg daily - History Pt unable to tell us her history. Was obtained through chart review and per her son PMHx: HTN, AFib, Macular degeneration, HLD PSHx: Appendectomy FHx: CAD Social: Denies any tobacco or alcohol use. Lives in [place] with her son - Review of Systems General: reports: fatigue. denies: fever/chills Eyes: denies: vision changes ENT: denies: nasal congestion Respiratory: denies: cough, congestion, shortness of breath Cardiovascular: denies: chest pain, edema Gastrointestinal: denies: nausea, vomiting, diarrhea, constipation, abdominal pain Genitourinary: denies: dysuria Skin: denies: rashes, lesions Musculoskeletal: denies: pain, swelling Neurological: reports: weakness. denies: syncope, seizure Psychological: reports: anxiety - Vital signs BP: 187/90 HR: 90 RR: 22 Tmax: 98.9F Pox: 97% on RA Wt: 63 kg - Physical Exam Constitutional: NAD, awake, alert and oriented (oriented to person only, at times knows she is in the hospital), well developed HEENT: normocephalic and atraumatic, grossly normal vision, grossly normal hearing Neck: supple, trachea midline Heart: RRR, normal S1/S2, no murmurs/rubs/gallops, no edema Lungs: CTAB, no respiratory distress, no wheezing Abdomen: soft -Abdomen: tender to palpation of suprapubic region Musculoskeletal: normal structure, normal tone, ROM grossly normal Neurological: no focal deficit Skin: no rash/lesions, no jaundice Heme/Lymphatic: no unusual bruising or bleeding -Psychiatric: poor memory FMR H&P: Results - Labs Result Diagrams: 07/17/20 12:49 07/17/20 12:49 Lab results: WBC 6.5 thou/uL (4.8-10.8) 07/17/20 12:49 Hgb 10.1 g/dL (12.0-16.0) L 07/17/20 12:49 Hct 31.6 % (36.0-47.0) L 07/17/20 12:49 MCV 85.4 fL (78.0-98.0) 07/17/20 12:49 Plt Count 252 thou/uL (130-400) 07/17/20 12:49 Neutrophils % 71.8 % (42.0-75.0) 07/17/20 12:49 Sodium 129 mmol/L (136-145) L 07/17/20 12:49 Potassium 3.5 mmol/L (3.5-5.1) 07/17/20 12:49 Chloride 96 mmol/L (98-107) L 07/17/20 12:49 Carbon Dioxide 23 mmol/L (23-31) 07/17/20 12:49 BUN 33 mg/dL (9.8-20.1) H 07/17/20 12:49 Creatinine 2.13 mg/dL (0.6-1.1) H 07/17/20 12:49 Glucose 107 mg/dL (83-110) 07/17/20 12:49 Calcium 9.0 mg/dL (7.8-10.44) 07/17/20 12:49 Total Bilirubin 0.4 mg/dL (0.2-1.2) 07/17/20 12:49 AST 21 U/L (5-34) 07/17/20 12:49 ALT 12 U/L (8-55) 07/17/20 12:49 Alkaline Phosphatase 67 U/L (40-110) 07/17/20 12:49 Serum Total Protein 7.5 g/dL (5.8-8.1) 07/17/20 12:49 Albumin 3.9 g/dL (3.4-4.8) 07/17/20 12:49 Urine Ketones Negative mg/dL (Negative) 07/17/20 13:49 Urine Blood 2+ (Negative) A 07/17/20 13:49 Urine Nitrite Negative (Negative) 07/17/20 13:49 Ur Leukocyte Esterase 500 Suzy/uL (Negative) A 07/17/20 13:49 Urine RBC 11-20 HPF (0-3) A 07/17/20 13:49 Urine WBC 11-20 HPF (0-3) A 07/17/20 13:49 Ur Squamous Epith Cells None Seen HPF (0-3) 07/17/20 13:49 Urine Bacteria 4+ HPF (None Seen) A 07/17/20 13:49 - EKG Interpretation EKG: reviewed: NSR FMR H&P: A/P - Plan Pt is an 89yo female with hx of CAD, HTN and a fib who has not been taking any of her meds who presents with AMS #Acute metabolic encephalopathy 2/ UTI -UA: Leuk 500, blood 2+, RBC/WBC 11-20, Bact 4+ -WBC 6.5 -s/p rocephin in ED, will continue -CT head: no acute process. CXR: no acute process -pending UCx -reassess mental status -re-orient frequently, open blinds during day #PHYLLIS vs worsening CKD -BUN/Cr 33/2.13, GFR 22 -last value was in 2019 BUN/Cr 19/1.7 -s/p 1L IVF in ED, will continue mIVF #Hyponatremia -Na 129 -likely hypovolemic hyponatremia, and should improve with fluid resuscitation -will recheck BMP, goal is to increase Na no more than 6 in 24 hours #HTN -not currently taking any home meds -will start back on nifedipine, which is a home med, but at a lower dose, will titrate as needed -hydralazine prn #Hx of a fib -ekg: normal sinus rhythm -not on any home meds -will start back on xarelto when mentation improves and less of a fall risk #normocytic anemia -Hb 10.1, appears to be stable from previous admissions -likely due to chronic disease -can work up as outpatient Code: DNAR, per son. He is supposed to bring OOH DNR to hospital tomorrow PCP: [facility] IVF: NS @ 100ml/hr VTE ppx: Xarelto- held until more lucid and less of a fall risk Diet: Dispo: Pt admitted to tele due to hx of a fib, not on medications. Will treat UTI and assess mental status. FMR H&P: Upper Level - Plan Date/Time: 07/17/20 1630 I, Jeanette Batista, DO, PGY-2, have evaluated this patient and agree with findings/plan as outlined by agronomy internship resident. Pertinent changes/additions are listed here. Patient is an 89 yo female who presents via EMS for altered mental status. Most of this history was given by patient's son, who she lives with and was the one who called EMS. Also reviewed ED provider reports. Patient lives with her son (Jimmy) in [place], [place], who is her primary air valve repairer and MPOA. He reports that patient is usually able to perform most ADLs by herself and is overall "very sharp still". She has been working on her taxes for the last week. He says she was fine when she went to bed Thursday night (07/15). When she woke up on Thursday she said she did not feel well and overall felt weak. Spent most of the day in her chair. Son says at times she seemed very confused but then at other times answered questions appropriately. She woke up again today and was even more confused. She tried to go to the bathroom and felt very "unsteady" and wobbly. She leaned up against the bathroom counter and called for help. Son says she did not fall and did not hit her head. Son was concerned at this point and called EMS. In the ED she was found to have UTI and was given Rocephin. Also given 1 g Ativan for agitation. Of note patient's son reports that she stopped taking all medications 6 months ago because they made her feel bad. Had been doing well in the interim. Exam: NC/AT. EOMI. Tachycardic, no murmur. CTAB. Abdomen TTP in suprapubic region. Soft, no guarding or rebound. No edema. Pulses 2+. Strength 4/5 in all extremities. A/P: Pt is an 89yo female with hx of CAD, HTN and a fib who has not been taking any of her meds who presents with AMS #Acute metabolic encephalopathy, likely 2/2 UTI -did not meet sepsis criteria -UA: Leuk 500, blood 2+, RBC/WBC 11-20, Bact 4+ -WBC 6.5 -s/p rocephin in ED, will continue -CT head: no acute process, chronic changes, old lacunar infarcts present -CXR: no acute process -likely some component of underlying dementia, will re-orient frequently -urine culture pending #PHYLLIS on CKD -BUN/Cr 33/2.13, GFR 22 -last value was in Mar 2019 BUN/Cr 19/1.07 -s/p 1L IVF in ED, will continue mIVF NS @ 100 due to Na 129 #Hyponatremia -Na 129 -likely hypovolemic hyponatremia -will recheck BMP in AM, goal is to increase Na no more than 6 in 24 hours #HTN -not currently taking any home meds, previously took Nifedipine, Hydralazine, a nd Clonidine -resume Nifedipine at 30 mg daily, titrate up as needed -prn IV Hydralazine for BP >180 systolic #Hx of AFIB -tachycardic in 90s, occasionally 100s, NSR on EKG -place on telemetry in setting PCP: [facility], previously saw Amy Taylor NP in [place] Diet: HH VTE ppx: Xarelto- held until more lucid and less of a fall risk Code: DNAR, discussed today with son. He is supposed to bring OOH DNR & MPOA paperwork to hospital tomorrow Dispo: Stable, admit to observation on telemetry unit. Continue antibiotics for UTI, cultures pending. Anticipate LOS <48 hrs. Addendum - Attending - Attending Attestation Date/Time: 07/17/20 4149 I personally evaluated the patient and discussed the management with Dr. Jeter. I agree with the History, Examination, Assessment and Plan documented above with any addition or exceptions noted below. Treat UTI. I had a long conversation with the patient who was very lucid at the time of my exam. She stated that she was feeling sad regarding the worsening of her vision, limitation of activity, and general decline related to her age. i suspect an underlying anxiety/depression component to her AMS and insomnia. Starting zoloft. PT to evaluate in the morning. Restart anticoagulants once she is more lucid.
[2020-07-17] MEDS ORDERED: Ondansetron ODT 4 MG TAB PO PRN (17:16)
[2020-07-17] MEDS ORDERED: Acetaminophen 325 MG TAB PO PRN (17:16)
[2020-07-17] MEDS ORDERED: NIFEdipine XL 90 MG TAB PO SCH (17:30)
[2020-07-17] MEDS ORDERED: NIFEdipine XL 30 MG TAB PO SCH (18:15)
[2020-07-17] MEDS: Sodium Chloride 0.9% 1,000 ML IV SCH (20:54)
[2020-07-17] MEDS ORDERED: Rivaroxaban 15 MG TAB PO SCH (21:00)
[2020-07-18 00:53] LABS: SARS-CoV-2 PCR by NAA Not Detected (NotDetected)
[2020-07-18 04:10] LABS: #Eosinphils 0.2 thou/uL (0.0-0.7); #Lymphocytes 0.8 thou/uL (1.20-3.40); #Monocytes 0.5 thou/uL (0.11-0.59); #Neutrophils 3.8 thou/uL (1.40-6.50); %Basophils 0.8 % (0.0-1.0); %Eosinophils 3.4 % (0.0-10.0); %Lymphocytes 14.5 % (21.0-51.0); %Monocytes 8.6 % (0.0-10.0); %Neutrophils 72.7 % (42.0-75.0); Hemoglobin 9.7 g/dL (12.0-16.0); Mean Corpuscular HGB CONC 32.4 g/dL (32.0-36.0); Mean Corpuscular Hemoglobin 27.5 pg (27.0-31.0); Mean Corpuscular Volume 84.8 fL (78.0-98.0); Mean Platelet Volume 9.5 fL (7.4-10.4); Platelet Count 234 thou/uL (130-400); RBC Distribution Width 14.2 % (11.5-14.5); Red Blood Cell (RBC) Count 3.52 mill/uL (4.20-5.40); White Blood Cell (WBC) Count 5.2 thou/uL (4.8-10.8)
[2020-07-18 04:28] LABS: Anion Gap 16 mmol/L (10-20); BUN (Urea Nitrogen) 28 mg/dL (9.8-20.1); Calc. Creatinine Clearance 21 mL/min (70-130); Calcium 8.2 mg/dL (7.8-10.44); Carbon Dioxide 21 mmol/L (23-31); Chloride 108 mmol/L (98-107); Glucose 96 mg/dL (83-110); Sodium 141 mmol/L (136-145)
[2020-07-18] MEDS: Sodium Chloride 0.9% 1,000 ML IV SCH ×3 (06:22→16:06)
--- NOTE | 2020-07-18 06:57 | PDOC.FM ---
- Subjective Subjective: Mrs. Craven is doing well this morning. She is A&Ox4 although she does appear to have some easy distractibility resulting in short-term memory issues. When I ask her where she is, she asks me to wait as she swallows her bite of food, then says "Wait what was the questions again?", but is then able to answer correctly. She denies dysuria, abdominal pain, back pain, and has no concerns or questions at this time. - Objective Vital Signs & Weight: Vital Signs (12 hours) Temp Pulse Resp BP Pulse Ox 07/18/20 04:00 97.8 F 75 18 170/79 H 95 07/18/20 00:00 75 176/80 H 07/17/20 20:00 97.6 F 91 20 167/77 H 95 Weight Weight 60.101 kg Result Diagrams: 07/18/20 03:47 07/19/20 04:09 Phys Exam - Physical Examination Constitutional: NAD Neck: supple, full ROM Respiratory: clear to auscultation bilateral Cardiovascular: RRR, no significant murmur Gastrointestinal: soft, non-tender, no distention Musculoskeletal: no edema Neurological: non-focal, moves all 4 limbs Psychiatric: normal affect, A&O x 3 Skin: no rash Dx/Plan - Plan Plan: Pt is an 89yo female who presented with AMS and was found to have a UTI. Acute metabolic encephalopathy 2/2 UTI -UA: Leuk 500, blood 2+, RBC/WBC 11-20, Bact 4+ -On Rocephin pending UCx results -Encephalopahty resolved: A&Ox3 today. Son spoke to her this am and states she sounds back to normal * Delirium precautions PHYLLIS vs worsening CKD, resolved -BUN/Cr 33/2.13, GFR 22 > BUN/Cr 28/1.79, GFR 27 -last value was in 2019 BUN/Cr 19/1.7 -continue mIVF -monitor with am BMP Hyponatremia, resolved -Na 129 > 141 -Increased greater than goal of 6 per 24hrs but risk of osmotic demyelination syndrome low with initial Na >120 -Monitor for mentation changes, although this will be difficult in setting of presenting encephalopathy 2/2 UTI HTN -BPs elevated. Continue to monitor vitals -need to med rec but Nifedipine reportedly a home med, and restarted at 30mg * Consider increase to 60mg if BPs continue -hydralazine prn Hx of a fib -ekg: normal sinus rhythm -admit to tele. Pt has been NSR with an episode of 14 beats of PAT -not on any home meds -weigh risk v benefit with son (SHAILESH) of starting on xarelto Normocytic anemia -stable and comparable to previous admissions -likely due to chronic disease -can work up as outpatient Code: DNAR, per son. He is MPOA and is supposed to bring OOH DNR to hospital tomorrow PCP: [facility] IVF: NS @ 100ml/hr VTE ppx: None currently given mentation and fall risk. Consider Xarelto, as above Diet: HH Dispo: Pt admitted to tele due to hx of a fib. Will treat UTI and continue to assess mental status. UCx and sens pending. Addendum - Attending - Attending Attestation Date/Time: 07/19/20 1644 I personally evaluated the patient and discussed the management with Dr. Deana Lindsey yesterday. I agree with the History, Examination, Assessment and Plan documented above with any addition or exceptions noted below.
[2020-07-18] MEDS ORDERED: NIFEdipine XL 30 MG TAB PO SCH (09:00)
[2020-07-18] MEDS: cefTRIAXone\\ROCEPHIN 1 GM in Sodium Chloride 0.9% 100 ML IVPB SCH (16:06)
[2020-07-18] MEDS: hydrALAZINE 10 MG TAB PO PRN (16:10)
[2020-07-18] MEDS: hydrOXYzine 25 MG TAB PO PRN ×2 (16:10→23:04)
[2020-07-19 05:02] LABS: Anion Gap 14 mmol/L (10-20); BUN (Urea Nitrogen) 22 mg/dL (9.8-20.1); Calc. Creatinine Clearance 22 mL/min (70-130); Calcium 8.4 mg/dL (7.8-10.44); Carbon Dioxide 22 mmol/L (23-31); Chloride 108 mmol/L (98-107); Glucose 101 mg/dL (83-110); Potassium 3.2 mmol/L (3.5-5.1); Sodium 141 mmol/L (136-145)
[2020-07-19] MEDS: hydrOXYzine 25 MG TAB PO PRN ×2 (05:14→20:47)
[2020-07-19] MEDS: hydrALAZINE 10 MG TAB PO PRN ×2 (05:15→12:24)
--- NOTE | 2020-07-19 06:08 | PDOC.FM ---
- Subjective Subjective: Mrs. Craven is A&Ox4 this morning but she is very flustered and anxious. She says she is feeling terrible but only lists being tied down by all of her wires (EKG, PIV). She denies dysuria, abdominal pain but is ttp of the lower abdomen. She is wanting to shower and brush her teeth. Tele shows NSR in the 60s-70s. - Objective Vital Signs & Weight: Vital Signs (12 hours) Temp Pulse Resp BP Pulse Ox 07/19/20 05:15 85 07/19/20 04:00 98.8 F 82 21 H 200/83 H 95 07/18/20 23:52 168/75 H 07/18/20 20:00 98.7 F 85 22 H 174/75 H 97 Weight Weight 60.101 kg I&O: 07/17/20 07/18/20 07/19/20 06:59 06:59 06:59 Intake Total 780 3380 Output Total 300 1700 Balance 480 1680 Result Diagrams: 07/18/20 03:47 07/20/20 03:54 Phys Exam - Physical Examination Distressed d/t anxiety Neck: supple, full ROM Respiratory: clear to auscultation bilateral Cardiovascular: RRR, no significant murmur Gastrointestinal: soft, no distention, positive bowel sounds Lower abdomen ttp Musculoskeletal: no edema Neurological: non-focal, moves all 4 limbs Psychiatric: A&O x 3 Skin: no rash Dx/Plan - Plan Plan: Pt is an 89yo female who presented with AMS and was found to have a UTI. Acute metabolic encephalopathy 2/2 UTI -On Rocephin pending UCx results -Encephalopathy resolved * Delirium precautions -Has been having a lot of anxiety causing agitation. Hydroxyzine prn -PT/OT/HAND DECORATOR/CM consulted for evaluation of functionality/mental status for discharge planning. PHYLLIS vs worsening CKD, resolved -BUN/Cr 33/2.13 > BUN/Cr 22/1.70 -last value was in 2019 BUN/Cr 19/1.7 -d/c mIVF d/t good po intake -monitor with am BMP HTN -BPs elevated. Continue to monitor vitals -Nifedipine used to be a home med but she d/c it 6-7mo ago. * Increase to 60mg today -hydralazine prn Hx of a fib -ekg: normal sinus rhythm -admit to tele. Pt has been NSR in the 60s-70s -not on any home meds -weigh risk v benefit with son (SHAILESH) of starting on xarelto Normocytic anemia -stable and comparable to previous admissions -likely due to chronic disease -can work up as outpatient Hyponatremia, resolved Code: DNAR, per son who is her MPOA PCP: [facility] IVF: N/A VTE ppx: None currently. Consider Xarelto, as above Diet: HH Dispo: Pt admitted to tele due to hx of a fib. Will treat UTI and continue to assess mental status. UCx and sens pending. Evals for discharge planning pending. Addendum - Attending - Attending Attestation Date/Time: 07/20/20 0709 I personally evaluated the patient and discussed the management with Dr. Oracio Lindsey yesterday. I agree with the History, Examination, Assessment and Plan documented above with any addition or exceptions noted below.
[2020-07-19] MEDS ORDERED: NIFEdipine XL 30 MG TAB PO SCH ×3 (06:15→21:00)
[2020-07-19] MEDS: Sodium Chloride 0.9% 1,000 ML IV SCH (10:41)
[2020-07-19] MEDS ORDERED: Potassium Chloride 20 MEQ TAB PO SCH (15:00)
[2020-07-19] MEDS: cefTRIAXone\\ROCEPHIN 1 GM in Sodium Chloride 0.9% 100 ML IVPB SCH (15:21)
[2020-07-20 04:54] LABS: Anion Gap 12 mmol/L (10-20); BUN (Urea Nitrogen) 20 mg/dL (9.8-20.1); Calc. Creatinine Clearance 22 mL/min (70-130); Calcium 8.4 mg/dL (7.8-10.44); Carbon Dioxide 23 mmol/L (23-31); Chloride 108 mmol/L (98-107); Glucose 96 mg/dL (83-110); Potassium 3.6 mmol/L (3.5-5.1); Sodium 139 mmol/L (136-145)
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
[2020-07-20] MEDS ORDERED: Potassium Chloride 20 MEQ TAB PO SCH (06:45)
[2020-07-20] MEDS ORDERED: NIFEdipine XL 30 MG TAB PO SCH (09:00)
[2020-07-20] MEDS ORDERED: Carvedilol 3.125 MG TAB PO SCH (10:00)
[2020-07-20] MEDS: Cefepime 1 GM in Sodium Chloride 0.9% 100 ML IVPB SCH (11:02)
[2020-07-20] MEDS: Carvedilol 3.125 MG TAB PO SCH (17:51)
[2020-07-20] MEDS: NIFEdipine XL 90 MG TAB PO SCH (20:41)
[2020-07-21 04:38] LABS: Anion Gap 16 mmol/L (10-20); BUN (Urea Nitrogen) 27 mg/dL (9.8-20.1); Calc. Creatinine Clearance 19 mL/min (70-130); Calcium 8.8 mg/dL (7.8-10.44); Carbon Dioxide 19 mmol/L (23-31); Chloride 106 mmol/L (98-107); Glucose 105 mg/dL (83-110); Potassium 4.1 mmol/L (3.5-5.1); Sodium 137 mmol/L (136-145)
--- NOTE | 2020-07-21 06:58 | PDOC.FM ---
- Subjective Subjective: Ms. Craven is A&Ox3 this morning. She is frustrated with constantly being interrupted while trying to eat her breakfast. - Objective Vital Signs & Weight: Vital Signs (12 hours) Temp Pulse Resp BP BP Pulse Ox 07/21/20 04:00 99.4 F 84 20 127/59 L 96 07/21/20 00:00 77 121/58 L 07/20/20 20:41 75 144/65 H 07/20/20 20:30 99.3 F 74 15 144/65 H 97 Weight Weight 60.645 kg I&O: 07/19/20 07/20/20 07/21/20 06:59 06:59 06:59 Intake Total 3380 1120 1486 Output Total 1700 1800 200 Balance 1680 -680 1286 Result Diagrams: 07/18/20 03:47 07/21/20 03:37 EKG Reviewed by me: Yes (tele: SR 80s) Phys Exam - Physical Examination Constitutional: NAD HEENT: moist MMs, sclera anicteric Neck: full ROM Respiratory: no wheezing, no rales, no rhonchi, clear to auscultation bilateral Cardiovascular: RRR, no significant murmur Gastrointestinal: soft, non-tender Musculoskeletal: no edema, pulses present Neurological: non-focal Psychiatric: normal affect, A&O x 3 Skin: no rash Dx/Plan - Plan Plan: Pt is an 89yo female who presented with AMS and was found to have a UTI. Acute metabolic encephalopathy 2/ UTI -UCx shows pseudomonas * D/c Rocephin, Continue Cefepime (07/20) * Sensitivities pending -Encephalopathy resolved * Delirium precautions -Has been having a lot of anxiety causing agitation. Hydroxyzine prn -PT/OT/QUAHOGGER/CM consulted for evaluation of functionality/mental status for discharge planning. * PT recommends SNF v Inpt rehab * Pt refused QUAHOGGER mental status exam. They will re-attempt * Son states pt has refused temporary placement/additional help in the past. She lives with him and receives some nursing care. PHYLLIS vs worsening CKD -BUN/Cr 33/2.13 > BUN/Cr 22/1.70 > BUN/Cr 27/1.92 -last value was in 2019 BUN/Cr 19/1.7 -off IVFs -monitor with am BMP. Will consider mIVF tomorrow if continues to rise. Encourage PO hydration. HTN -BPs elevated. Continue to monitor vitals -Nifedipine used to be a home med but she d/c it 6-7mo ago. * Increased to 90mg yesterday -Continue Carvedilol at 3.125mg BID today -hydralazine prn Hypokalemia, resolved - improved from 3.6 to 4.1 s/p 40mEq KDur - Monitor with am BMP Hx of a fib -ekg: normal sinus rhythm -admit to tele. Pt has been NSR in the 60s-70s -not on any home meds -weigh risk v benefit with son (MPOA) of starting on xarelto Normocytic anemia -stable and comparable to previous admissions -likely due to chronic disease -can work up as outpatient Hyponatremia, resolved Code: DNAR, per son who is her MPOA PCP: [facility] IVF: N/A VTE ppx: None currently. Consider Xarelto, as above Diet: Dispo: Tele inpt. Will adjust abx further pending sensitivities. Evals for discharge planning pending.
[2020-07-21] MEDS: hydrOXYzine 25 MG TAB PO PRN (09:15)
[2020-07-21] MEDS: Carvedilol 3.125 MG TAB PO SCH ×2 (09:15→16:17)
--- NOTE | 2020-07-21 11:30 | PRG ---
DATE OF SERVICE: 07/21/2020 Please see the note from Dr. Brent Edwards, for which I agree. The patient was seen, evaluated, discussed, and examined by the bedside with the residents. The patient came in with altered mental status and confusion. Really do not know her baseline, was found to have UTI. Sensitivities are pending and is currently on cefepime. Awaiting on placement and sounds like she altered mental status and since we get the sensitivities and we are going to decide how to treat this as an outpatient and we will need to get rehab or care home for a period of time to get her strength up. Job ID: [id number]
[2020-07-21] MEDS: Cefepime 1 GM in Sodium Chloride 0.9% 100 ML IVPB SCH (13:15)
[2020-07-21] MEDS: hydrALAZINE 10 MG TAB PO PRN (16:20)
[2020-07-21] MEDS: NIFEdipine XL 90 MG TAB PO SCH (21:18)
--- NOTE | 2020-07-22 06:58 | PDOC.FM ---
- Subjective Subjective: Patient sleeping comfortably this morning during rounds and did not wake up. - Objective Vital Signs & Weight: Vital Signs (12 hours) Temp Pulse Resp BP BP Pulse Ox 07/22/20 04:00 98.4 F 72 16 143/78 H 97 07/22/20 00:00 76 132/63 07/21/20 21:18 72 178/80 H 07/21/20 19:40 98.3 F 73 15 178/80 H 97 Weight Weight 59.194 kg I&O: 07/20/20 07/21/20 07/22/20 06:59 06:59 06:59 Intake Total 1120 1486 200 Output Total 4869 894 0181 Balance -680 1286 -850 Result Diagrams: 07/22/20 07:11 07/22/20 07:11 EKG Reviewed by me: Yes (tele: 60-70s) Phys Exam - Physical Examination Constitutional: NAD HEENT: moist MMs, sclera anicteric Neck: no nodes Respiratory: no wheezing, no rales, no rhonchi, clear to auscultation bilateral Cardiovascular: RRR, no significant murmur Gastrointestinal: soft, non-tender Musculoskeletal: no edema, pulses present Neurological: moves all 4 limbs Lymphatic: no nodes Psychiatric: A&O x 3 Skin: no rash Dx/Plan - Plan Plan: Pt is an 89yo female who presented with AMS and was found to have a UTI. Acute metabolic encephalopathy 2/2 UTI -UCx shows pseudomonas * Melara sensitive * D/C antibiotics, received 3 days of rocephin and 2 days of cefepime -Encephalopathy resolved * Delirium precautions -Hydroxyzine prn for anxiety induced agitation -PT/OT/CONDUCTOR SLEEPING CAR/CM consulted for evaluation of functionality/mental status for discharge planning. * PT recommends SNF v Inpt rehab * CONDUCTOR SLEEPING CAR mental status exam revealed moderate cognitive impairement * Son states pt has refused temporary placement/additional help in the past. She lives with him and receives some nursing care. Will call son today and inquire about placement. PHYLLIS on CKD -BUN/Cr 26/1.84 -last value was in 2019 BUN/Cr 19/1.7 -responded to IVF which has since been discontinued -Continue to monitor with daily BMP. Encourage PO hydration HTN -BPs elevated. Continue to monitor vitals -Nifedipine used to be a home med but she d/c it 6-7mo ago. * Increased to 90mg yesterday -Increase Carvedilol to 6.25mg BID today -hydralazine prn Hypokalemia, resolved - Monitor with am BMP Hx of a fib -ekg: normal sinus rhythm -admit to tele. Pt has been NSR in the 60s-70s -not on any home meds -weigh risk v benefit with son (MPOA) of starting on xarelto Normocytic anemia -stable and comparable to previous admissions -likely due to chronic disease -can work up as outpatient Hyponatremia, resolved Code: DNAR, per son who is her MPOA PCP: [facility] IVF: N/A VTE ppx: None currently. Consider Xarelto, as above Diet: Dispo: Discontinued antibiotics today. Discharge pending placement decision by patient and son.
[2020-07-22 07:24] LABS: #Eosinphils 0.3 thou/uL (0.0-0.7); #Lymphocytes 1.4 thou/uL (1.20-3.40); #Monocytes 0.6 thou/uL (0.11-0.59); #Neutrophils 5.5 thou/uL (1.40-6.50); %Basophils 0.5 % (0.0-1.0); %Eosinophils 3.3 % (0.0-10.0); %Lymphocytes 17.5 % (21.0-51.0); %Neutrophils 70.7 % (42.0-75.0); Hemoglobin 10.7 g/dL (12.0-16.0); Mean Corpuscular HGB CONC 32.3 g/dL (32.0-36.0); Mean Corpuscular Hemoglobin 27.5 pg (27.0-31.0); Mean Platelet Volume 8.3 fL (7.4-10.4); Platelet Count 275 thou/uL (130-400); RBC Distribution Width 13.9 % (11.5-14.5); White Blood Cell (WBC) Count 7.8 thou/uL (4.8-10.8)
[2020-07-22 07:42] LABS: Anion Gap 18 mmol/L (10-20); BUN (Urea Nitrogen) 26 mg/dL (9.8-20.1); Calc. Creatinine Clearance 20 mL/min (70-130); Calcium 9.4 mg/dL (7.8-10.44); Carbon Dioxide 20 mmol/L (23-31); Chloride 102 mmol/L (98-107); Glucose 101 mg/dL (83-110); Potassium 3.9 mmol/L (3.5-5.1); Sodium 136 mmol/L (136-145)
[2020-07-22] MEDS: Carvedilol 3.125 MG TAB PO SCH ×2 (09:33→17:50)
--- NOTE | 2020-07-22 12:50 | PRG ---
DATE OF SERVICE: 07/22/2020 Please see the note from Dr. Brent Edwards, for which I agree. The patient was seen, evaluated, discussed, and examined with the residents by bedside. Basically, no major change on her, has been already on 5 days of IV antibiotics and UTI griggs, she seems better. Really the main thing right now is we are just trying to figure out placement on her as everything else is stable and exam is perfectly benign. Job ID: [id number]
[2020-07-22] MEDS: NIFEdipine XL 90 MG TAB PO SCH (22:51)
[2020-07-23] MEDS ORDERED: Carvedilol 6.25 MG TAB ONE ×2 (08:00→08:48)
[2020-07-23] MEDS: Carvedilol 3.125 MG TAB PO SCH ×2 (09:00→18:12)
[2020-07-23 15:49] LABS: Anion Gap 17 mmol/L (10-20); BUN (Urea Nitrogen) 30 mg/dL (9.8-20.1); Calc. Creatinine Clearance 18 mL/min (70-130); Calcium 8.9 mg/dL (7.8-10.44); Carbon Dioxide 21 mmol/L (23-31); Chloride 101 mmol/L (98-107); Glucose 96 mg/dL (83-110); Potassium 3.9 mmol/L (3.5-5.1); Sodium 135 mmol/L (136-145)
[2020-07-23 18:17] LABS: #Eosinphils 0.3 thou/uL (0.0-0.7); #Lymphocytes 1.3 thou/uL (1.20-3.40); #Monocytes 0.7 thou/uL (0.11-0.59); #Neutrophils 4.5 thou/uL (1.40-6.50); %Basophils 0.5 % (0.0-1.0); %Eosinophils 3.9 % (0.0-10.0); %Lymphocytes 19.4 % (21.0-51.0); %Neutrophils 66.3 % (42.0-75.0); Hemoglobin 9.9 g/dL (12.0-16.0); Mean Corpuscular Hemoglobin 26.8 pg (27.0-31.0); Mean Corpuscular Volume 83.8 fL (78.0-98.0); Platelet Count 283 thou/uL (130-400); RBC Distribution Width 13.7 % (11.5-14.5); White Blood Cell (WBC) Count 6.7 thou/uL (4.8-10.8)
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
[2020-07-23] MEDS: NIFEdipine XL 90 MG TAB PO SCH (22:21)
[2020-07-23] MEDS: hydrOXYzine 25 MG TAB PO PRN (22:21)
[2020-07-24] MEDS: hydrOXYzine 25 MG TAB PO PRN ×3 (04:23→20:24)
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
[2020-07-24] MEDS: Carvedilol 3.125 MG TAB PO SCH ×2 (08:50→17:51)
[2020-07-24] MEDS: NIFEdipine XL 90 MG TAB PO SCH (20:24)
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
[2020-07-25] MEDS: Carvedilol 3.125 MG TAB PO SCH ×2 (08:49→17:47)
[2020-07-25] MEDS: hydrOXYzine 25 MG TAB PO PRN (08:49)
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
[2020-07-25] MEDS ORDERED: Lactated Ringer's 1,000 ML IV SCH (11:15)
[2020-07-25] MEDS ORDERED: Ziprasidone 20 MG CAP PO SCH ×2 (11:30→21:00)
[2020-07-25] MEDS: Ziprasidone 20 MG CAP PO SCH (20:28)
[2020-07-25] MEDS: NIFEdipine XL 90 MG TAB PO SCH (20:28)
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
[2020-07-26 06:34] LABS: Anion Gap 13 mmol/L (10-20); BUN (Urea Nitrogen) 35 mg/dL (9.8-20.1); Calc. Creatinine Clearance 17 mL/min (70-130); Calcium 8.7 mg/dL (7.8-10.44); Carbon Dioxide 27 mmol/L (23-31); Chloride 106 mmol/L (98-107); Glucose 94 mg/dL (83-110); Potassium 3.9 mmol/L (3.5-5.1); Sodium 142 mmol/L (136-145)
[2020-07-26] MEDS: Ziprasidone 20 MG CAP PO SCH ×2 (09:19→20:20)
[2020-07-26] MEDS: Carvedilol 6.25 MG TAB PO SCH ×2 (09:23→18:45)
[2020-07-26 11:34] VITALS: BMI 23.8
--- NOTE | 2020-07-26 11:42 | PRG ---
DATE OF SERVICE: 07/26/2020 Mrs. Craven is still having episodes of delirium, but is not as combative. We will continue with the Courtney. Job ID: [id number]
[2020-07-26] MEDS: Lactated Ringer's 1,000 ML IV SCH ×2 (12:45→21:39)
[2020-07-26] MEDS: NIFEdipine XL 90 MG TAB PO SCH (20:19)
[2020-07-26] MEDS: hydrOXYzine 25 MG TAB PO PRN (20:20)
[2020-07-27] MEDS: hydrOXYzine 25 MG TAB PO PRN (03:22)
[2020-07-27] MEDS: Lactated Ringer's 1,000 ML IV SCH ×2 (04:58→11:54)
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
[2020-07-27 06:38] LABS: Anion Gap 10 mmol/L (10-20); BUN (Urea Nitrogen) 36 mg/dL (9.8-20.1); Calc. Creatinine Clearance 17 mL/min (70-130); Calcium 8.6 mg/dL (7.8-10.44); Carbon Dioxide 28 mmol/L (23-31); Chloride 106 mmol/L (98-107); Glucose 112 mg/dL (83-110); Potassium 3.7 mmol/L (3.5-5.1); Sodium 140 mmol/L (136-145)
[2020-07-27] MEDS: Ziprasidone 20 MG CAP PO SCH (09:23)
[2020-07-27] MEDS: Carvedilol 6.25 MG TAB PO SCH ×2 (09:23→17:12)
--- NOTE | 2020-07-27 12:48 | PRG ---
DATE OF SERVICE: 07/27/2020 I have examined the patient and discussed the case with Dr. Sinclair. I agree with her assessment and plan. Job ID: [id number]
[2020-07-27] MEDS ORDERED: Loperamide HCl 2 MG CAP PO PRN (16:42)
[2020-07-27 17:13] VITALS: BP 166/65
[2020-07-27 17:19] VITALS: TEMP 99
--- NOTE | 2020-07-28 17:52 | EKG ---
Test Reason : Blood Pressure : / mmHG Vent. Rate : 081 BPM Atrial Rate : 081 BPM P-R Int : 138 ms QRS Dur : 084 ms QT Int : 396 ms P-R-T Axes : 067 -87 040 degrees QTc Int : 460 ms Normal sinus rhythm Pulmonary disease pattern Left anterior fascicular block Abnormal ECG T wave inversion aVR, V1 Confirmed by JAYJAY VALENZUELA M.D. ([id number]), communications editor MENDEL HALL ([id number]) on 07/28/2020 5:51:27 PM Referred By: Confirmed By:JAYJAY VALENZUELA M.D.
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
== END 2020-07-27 18:27 | DRG 689 ==
LOC: ERS 12:10 → T4-B 17:18 → 2NO 19:42 → T4-A 07-22 14:19
PROVIDERS: ADMIT Family Medicine; ATTEND Family Medicine
DX: N39.0 Urinary tract infection, site not specified (principal); G93.41 Metabolic encephalopathy; N17.9 Acute kidney failure, unspecified; E87.1 Hypo-osmolality and hyponatremia; Z66 Do not resuscitate; Z20.822 Contact with and (suspected) exposure to COVID-19; F41.0 Panic disorder [episodic paroxysmal anxiety]; E78.5 Hyperlipidemia, unspecified; I48.91 Unspecified atrial fibrillation; H35.30 Unspecified macular degeneration; N18.9 Chronic kidney disease, unspecified; D63.1 Anemia in chronic kidney disease; F41.9 Anxiety disorder, unspecified; F32.9 Major depressive disorder, single episode, unspecified; G47.00 Insomnia, unspecified; E78.00 Pure hypercholesterolemia, unspecified; B96.5 Pseudomonas (aeruginosa) (mallei) (pseudomallei) as the cause of diseases classified elsewhere; E87.6 Hypokalemia; G31.84 Mild cognitive impairment of uncertain or unknown etiology; I12.9 Hypertensive chronic kidney disease with stage 1 through stage 4 chronic kidney disease, or unspecified chronic kidney disease; Z88.1 Allergy status to other antibiotic agents; Z88.8 Allergy status to other drugs, medicaments and biological substances; Z79.82 Long term (current) use of aspirin; Z79.899 Other long term (current) drug therapy; Z79.01 Long term (current) use of anticoagulants; Z90.49 Acquired absence of other specified parts of digestive tract
CPT/HCPCS: 36415; 36416; 51701; 70450; 71045; 80048; 80053; 81003; 81015; 82140; 83735; 84484; 85025; 87077; 87086; 87186; 87324; 87449; 87635; 93005; 96365; 96375; 96376; J0360; J0692; J0696; J2060; J3490; U0003; U0005

== ENCOUNTER 2020-10-05 10:57 | Inpatient (IN) | payer MEDICARE ==
[2020-10-05] MEDS ORDERED: Labetalol HCl 100 MG/20 ML VIAL ONE (11:38)
[2020-10-05 11:42] LABS: #Eosinphils 0.1 thou/uL (0.0-0.7); #Lymphocytes 1.3 thou/uL (1.20-3.40); #Monocytes 0.5 thou/uL (0.11-0.59); #Neutrophils 3.6 thou/uL (1.40-6.50); %Basophils 0.9 % (0.0-1.0); %Eosinophils 1.5 % (0.0-10.0); %Lymphocytes 23.1 % (21.0-51.0); %Monocytes 8.8 % (0.0-10.0); %Neutrophils 65.7 % (42.0-75.0); Hemoglobin 10.2 g/dL (12.0-16.0); Mean Corpuscular Volume 84.4 fL (78.0-98.0); Platelet Count 300 thou/uL (130-400); RBC Distribution Width 14.5 % (11.5-14.5); Red Blood Cell (RBC) Count 3.79 mill/uL (4.20-5.40); White Blood Cell (WBC) Count 5.5 thou/uL (4.8-10.8)
[2020-10-05 12:08] LABS: ALT (SGPT) 13 U/L (8-55); AST (SGOT) 18 U/L (5-34); Alkaline Phosphatase 68 U/L (40-110); Anion Gap 14 mmol/L (10-20); BUN (Urea Nitrogen) 32 mg/dL (9.8-20.1); Bilirubin, Total 0.4 mg/dL (0.2-1.2); Calc. Creatinine Clearance 0 mL/min (70-130); Calcium 9.3 mg/dL (7.8-10.44); Carbon Dioxide 28 mmol/L (23-31); Chloride 102 mmol/L (98-107); Globulin 3.2 g/dL (2.4-3.5); Glucose 111 mg/dL (83-110); Lipase 56 U/L (8-78); Protein, Total 7.2 g/dL (5.8-8.1); Sodium 140 mmol/L (136-145)
[2020-10-05 14:41] VITALS: BMI 27.9
[2020-10-05] MEDS ORDERED: Ondansetron ODT 4 MG TAB SL PRN (15:00)
[2020-10-05] MEDS ORDERED: Ondansetron PF 4 MG/2 ML Vial IVP PRN ×2 (15:00→15:47)
[2020-10-05] MEDS ORDERED: Ondansetron ODT 4 MG TAB PO PRN (15:47)
[2020-10-05] MEDS ORDERED: hydrALAZINE 25 MG TAB PO PRN (15:47)
[2020-10-05] MEDS ORDERED: Acetaminophen 325 MG TAB PO PRN (15:47)
[2020-10-05] MEDS ORDERED: Labetalol HCl 100 MG/20 ML VIAL SLOW IVP PRN (15:47)
[2020-10-05] MEDS ORDERED: hydrALAZINE 20 MG/ML VIAL SLOW IVP PRN (15:47)
[2020-10-05 16:10] LABS: Troponin I 0.017 ng/mL (< 0.028)
[2020-10-05] MEDS: Carvedilol 6.25 MG TAB PO SCH (17:48)
[2020-10-05 19:16] LABS: Troponin I 0.017 ng/mL (< 0.028)
[2020-10-05 20:13] LABS: SARS-CoV-2 PCR by NAA Not Detected (NotDetected)
[2020-10-05] MEDS: Famotidine 20 MG TAB PO SCH (20:24)
[2020-10-05] MEDS: Heparin 5,000 UNITS/ML VIAL SC SCH (20:25)
[2020-10-06] MEDS: Acetaminophen 325 MG TAB PO PRN ×2 (00:44→15:51)
[2020-10-06 05:08] LABS: #Eosinphils 0.2 thou/uL (0.0-0.7); #Lymphocytes 1.4 thou/uL (1.20-3.40); #Monocytes 0.7 thou/uL (0.11-0.59); #Neutrophils 3.2 thou/uL (1.40-6.50); %Basophils 0.7 % (0.0-1.0); %Eosinophils 3.8 % (0.0-10.0); %Lymphocytes 24.5 % (21.0-51.0); %Monocytes 12.5 % (0.0-10.0); %Neutrophils 58.5 % (42.0-75.0); Hemoglobin 9.7 g/dL (12.0-16.0); Mean Corpuscular HGB CONC 31.6 g/dL (32.0-36.0); Mean Corpuscular Hemoglobin 26.8 pg (27.0-31.0); Mean Corpuscular Volume 84.6 fL (78.0-98.0); Mean Platelet Volume 8.3 fL (7.4-10.4); Platelet Count 271 thou/uL (130-400); RBC Distribution Width 14.6 % (11.5-14.5); Red Blood Cell (RBC) Count 3.61 mill/uL (4.20-5.40); White Blood Cell (WBC) Count 5.5 thou/uL (4.8-10.8)
[2020-10-06 05:29] LABS: Anion Gap 14 mmol/L (10-20); BUN (Urea Nitrogen) 34 mg/dL (9.8-20.1); Calc. Creatinine Clearance 23 mL/min (70-130); Calcium 8.7 mg/dL (7.8-10.44); Carbon Dioxide 24 mmol/L (23-31); Chloride 106 mmol/L (98-107); Glucose 114 mg/dL (83-110); Potassium 3.7 mmol/L (3.5-5.1); Sodium 140 mmol/L (136-145)
[2020-10-06] MEDS: Carvedilol 6.25 MG TAB PO SCH ×2 (08:00→15:52)
[2020-10-06] MEDS: NIFEdipine XL 90 MG TAB PO SCH (08:00)
[2020-10-06] MEDS: Heparin 5,000 UNITS/ML VIAL SC SCH ×2 (08:06→20:12)
[2020-10-06] MEDS: Famotidine 20 MG TAB PO SCH (20:12)
[2020-10-07 05:09] LABS: #Basophils 0.1 thou/uL (0.0-0.2); #Eosinphils 0.3 thou/uL (0.0-0.7); #Lymphocytes 1.1 thou/uL (1.20-3.40); #Monocytes 0.7 thou/uL (0.11-0.59); #Neutrophils 3.2 thou/uL (1.40-6.50); %Eosinophils 5.3 % (0.0-10.0); %Lymphocytes 20.1 % (21.0-51.0); %Monocytes 12.7 % (0.0-10.0); Hemoglobin 10.8 g/dL (12.0-16.0); Mean Corpuscular HGB CONC 32.5 g/dL (32.0-36.0); Mean Corpuscular Hemoglobin 27.6 pg (27.0-31.0); Mean Platelet Volume 8.4 fL (7.4-10.4); Platelet Count 276 thou/uL (130-400); RBC Distribution Width 14.6 % (11.5-14.5); Red Blood Cell (RBC) Count 3.92 mill/uL (4.20-5.40); White Blood Cell (WBC) Count 5.3 thou/uL (4.8-10.8)
[2020-10-07 05:29] LABS: Anion Gap 14 mmol/L (10-20); BUN (Urea Nitrogen) 29 mg/dL (9.8-20.1); Calc. Creatinine Clearance 22 mL/min (70-130); Calcium 9.1 mg/dL (7.8-10.44); Carbon Dioxide 23 mmol/L (23-31); Chloride 105 mmol/L (98-107); Glucose 103 mg/dL (83-110); Potassium 4.2 mmol/L (3.5-5.1); Sodium 138 mmol/L (136-145)
[2020-10-07] MEDS: Carvedilol 6.25 MG TAB PO SCH ×2 (07:28→15:49)
[2020-10-07] MEDS: NIFEdipine XL 90 MG TAB PO SCH (07:28)
[2020-10-07] MEDS: Heparin 5,000 UNITS/ML VIAL SC SCH ×2 (07:31→21:35)
[2020-10-07] MEDS: Famotidine 20 MG TAB PO SCH (21:34)
[2020-10-08] MEDS: Acetaminophen 325 MG TAB PO PRN (03:07)
[2020-10-08 05:41] LABS: #Basophils 0.1 thou/uL (0.0-0.2); #Eosinphils 0.2 thou/uL (0.0-0.7); #Lymphocytes 1.3 thou/uL (1.20-3.40); #Monocytes 0.6 thou/uL (0.11-0.59); %Basophils 1.4 % (0.0-1.0); %Eosinophils 4.3 % (0.0-10.0); %Lymphocytes 25.8 % (21.0-51.0); %Neutrophils 57.6 % (42.0-75.0); Hemoglobin 10.5 g/dL (12.0-16.0); Mean Corpuscular HGB CONC 32.5 g/dL (32.0-36.0); Mean Corpuscular Hemoglobin 27.5 pg (27.0-31.0); Mean Corpuscular Volume 84.7 fL (78.0-98.0); Platelet Count 292 thou/uL (130-400); RBC Distribution Width 14.5 % (11.5-14.5); Red Blood Cell (RBC) Count 3.82 mill/uL (4.20-5.40); White Blood Cell (WBC) Count 5.1 thou/uL (4.8-10.8)
[2020-10-08 06:17] LABS: Anion Gap 13 mmol/L (10-20); BUN (Urea Nitrogen) 33 mg/dL (9.8-20.1); Calc. Creatinine Clearance 22 mL/min (70-130); Calcium 9.3 mg/dL (7.8-10.44); Carbon Dioxide 24 mmol/L (23-31); Chloride 104 mmol/L (98-107); Glucose 88 mg/dL (83-110); Potassium 3.9 mmol/L (3.5-5.1); Sodium 137 mmol/L (136-145)
[2020-10-08 07:48] VITALS: BP 157/67; TEMP 98.1
[2020-10-08] MEDS: NIFEdipine XL 90 MG TAB PO SCH (08:30)
[2020-10-08] MEDS: Carvedilol 6.25 MG TAB PO SCH (08:30)
[2020-10-08] MEDS: Heparin 5,000 UNITS/ML VIAL SC SCH (08:30)
== END 2020-10-08 11:36 | disposition home or self-care (01) | DRG 78 ==
LOC: ERS 10:57 → 2SW 13:13 → OBSVTOIN 10-07 17:34
PROVIDERS: ADMIT Hospitalist; ATTEND Internal Medicine
DX: I67.4 Hypertensive encephalopathy (principal); N18.4 Chronic kidney disease, stage 4 (severe); I48.20 Chronic atrial fibrillation, unspecified; E78.5 Hyperlipidemia, unspecified; K59.09 Other constipation; M19.90 Unspecified osteoarthritis, unspecified site; I12.9 Hypertensive chronic kidney disease with stage 1 through stage 4 chronic kidney disease, or unspecified chronic kidney disease; I16.0 Hypertensive urgency; Z20.822 Contact with and (suspected) exposure to COVID-19; Z91.14 Patient's other noncompliance with medication regimen; Z90.49 Acquired absence of other specified parts of digestive tract; Z88.1 Allergy status to other antibiotic agents; Z88.8 Allergy status to other drugs, medicaments and biological substances; Z87.891 Personal history of nicotine dependence
CPT/HCPCS: 36415; 70450; 71045; 80048; 80053; 83690; 84484; 85025; 87635; 93005; 96372; 96374; 96375; 96376; G0378; J0360; J1644; U0003; U0005